=== PATIENT | male | born 1945 | race African-American/Black ===

== ENCOUNTER 2021-09-16 10:07 | Emergency (ER) | payer MEDICARE, MEDICAID, SELFPAY ==
--- NOTE | ~2021-09-16 | CT_ITS ---
EXAMINATION: CT CERVICAL SPINE WITHOUT CONTRAST CLINICAL INFORMATION: Status post fall with head strike. COMPARISON: None TECHNIQUE: Multiple axial images of the cervical spine were obtained without the administration of intravenous contrast. Coronal and sagittal reformatted images were obtained. This CT examination was performed using dose optimization techniques as appropriate, variously including the following: *Automated exposure control *Adjustment of mA and/or kV according to patient size (this includes techniques or standardized protocols for targeted exams where dose is matched to indication/reason for exam; i.e. extremities or head) *Use of iterative reconstruction technique DLP: 351.57 mGy-cm FINDINGS: There is straightening of the normal cervical lordosis with normal spinal alignment. 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 Nonacute fracture of the anterior-inferior margin of C1 is seen as well. Calcification of the adjacent posterior longitudinal ligament is seen as well. Mild to severe multilevel degenerative changes are seen from C4-C5 to C7-T1. Partial osseous fusion of C6-C7 is seen as well. Mild to moderate bilateral facet arthropathy is seen greatest at C2-C3 on the right. The spinous processes are intact. Moderate sized nuchal ligament ossification from the C4-C6 level without surrounding abnormality. The soft tissues are unremarkable. No lymphadenopathy. A left-sided thyroid nodule inferiorly in the left lobe measures 1.2 cm in transverse dimension (image 320, series 11) not requiring follow-up. Mild biapical pleural thickening and scarring. CT/CT cervical spine wo con IMPRESSION: 1. Straightening of the normal cervical lordosis may be secondary to positioning and cisternal muscle spasm. 2. Multilevel degenerative changes without definitive acute abnormality. 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 Correlate with patient history. Fleischner guidelines were followed.
--- NOTE | ~2021-09-16 | CT_ITS ---
EXAMINATION: CT HEAD WITHOUT CONTRAST CLINICAL INFORMATION: Status post fall with head strike. COMPARISON: None TECHNIQUE: Contiguous axial imaging was performed from the skull base to vertex without intravenous administration of contrast. Coronal and sagittal reformatted images were obtained. This CT examination was performed using dose optimization techniques as appropriate, variously including the following: *Automated exposure control *Adjustment of mA and/or kV according to patient size (this includes techniques or standardized protocols for targeted exams where dose is matched to indication/reason for exam; i.e. extremities or head) *Use of iterative reconstruction technique DLP: 711.61, 212.92, 10.25 mGy-cm FINDINGS: There is mild to moderate widening of the cortical sulci and associated ventriculomegaly. The lateral ventricles are mildly asymmetric, left greater than right. Dilatation is mildly out of portion compared to the degree of atrophy. Close triangle measures approximately 53 degrees. Mild periventricular microvascular changes. The third and fourth ventricles are in their normal midline position. The basilar and prepontine cisterns are unremarkable. There is no acute intra or extracerebral abnormality. There is no mass effect or midline shift. Sections through the bony calvarium are unremarkable. The orbits are intact. The paranasal sinuses are clear. The mastoid air cells are clear. CT/CT head/brain wo con IMPRESSION: 1. No acute intracranial pathology. 2. Ventricular dilatation is mildly out of proportion relative to the degree of cortical atrophy. This is nonspecific, but can be seen with normal pressure hydrocephalus.
--- NOTE | 2021-09-16 10:11 | ED_ITS ---
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 Two staff members saw him lose his balance and fall. He hit his head on the radiator. One staff member thinks his eyes rolled into the back of his head and the other staff member denies. No seizure activity. Patient initially refused to come to the ER for evaluation but was eventually convinced. He denies all complaints. He denies any medical history. complaint: fall Onset (ago): minute(s) Fall from: standing Fall witnessed: yes, by living facility staff Place fall occurred: [facility] Loss of consciousness: unsure Prolonged down time: no Symptoms prior to fall: none Location of injury: head Associated symptoms (after fall): denies Related Data Home Medications Medication Instructions Recorded Confirmed polyethylene glycol 3350 17 gram 17 g PO DAILY 09/16/21 09/16/21 oral powder packet risperidone 1 mg/mL oral solution 0.5 mg PO BID 09/16/21 09/16/21 risperidone microspheres 50 mg/2 50 mg IM Q14D 09/16/21 09/16/21 mL intramuscular susp,ext release (Risperdal Consta) valproic acid (as sodium salt) 250 1,000 mg PO DAILY@1700 09/16/21 09/16/21 mg/5 mL (5 mL) oral solution Allergies Allergy/AdvReac Type Severity Reaction Status Date / Time Unable to Assess Allergy Unverified 09/16/21 10:11 Review of Systems Review of Systems: Constitutional: No Fever, No Chills ENT/Mouth: No sore throat, No Rhinorrhea, No Swallowing Difficulty Eyes: No Eye Pain, No Swelling, No Redness Cardiovascular: No Chest Pain, No SOB, No Orthopnea, No Edema Respiratory: No Cough, No Sputum, No Wheezing, No dyspnea Gastrointestinal: No Nausea, No Vomiting, No Diarrhea, No abdominal Pain, No Hematochezia, No Melena Genitourinary: No Dysuria, No Urinary Frequency, No Hematuria Musculoskeletal: No joint pain, No Myalgias Skin: No Skin Lesions, No rash Neuro: No Weakness, No Numbness, No Dizziness, No Headache Psych: No Anxiety/Panic, No Depression Heme/Lymph: No Bruising, No Lymphadenopathy Endocrine: No Polyuria, No Polydipsia [facility] Past Medical History Medical History (Updated 09/16/21 @ 17:21 by TAYO Hurtado) Anemia Bipolar 1 disorder Dementia Dysphagia Psychosis Schizoaffective disorder Social History Social History Advance Directives: No Advance Directives Information Provided: No Physical Exam Vital Signs: Vital Signs: Last Vital Signs Temp 95.4 F L 09/16/21 11:33 Pulse 86 09/16/21 11:33 Resp 20 09/16/21 11:33 BP 140/63 H 09/16/21 11:33 Pulse Ox 95 09/16/21 11:33 O2 Del Method 09/16/21 11:33 BMI result Body Mass Index 25.9 Appearance: Alert elderly male laying on the stretcher. No acute distress. Eyes: Pupils equal, round and reactive to light. ENT: Pharynx normal. Neck: Normal inspection. Neck supple. No midline tenderness. CVS: Normal heart rate and rhythm. Pulses normal. Respiratory: No respiratory distress. Breath sounds normal. Abdomen: Soft and nontender. +BS x4 Skin: Skin warm and dry. Normal skin color. Normal skin turgor. No rashes. Extremities: Atraumatic x4, pelvis is stable and nontender. No lower extremity edema. Compartments of the lower and upper extremities are soft and compressible, no erythema or tenderness. Neuro: Oriented X 2. Follows simple commands, strength equal and symmetrical throughout. Poor historian. Course Course Course Narrative: 75-year-old male with history of Korsakoff dementia, schizoaffective disorder, dysphagia, gait instability who presents to the ER for evaluation of a fall with head strike. There was question of loss of consciousness briefly. On arrival to the ER he has no complaints. There is no evidence of trauma. Will get CT scan of his head and neck given head strike. Will get metabolic workup in EKG. Reevaluation(s) Reevaluation #1: Head and neck imaging is unremarkable for traumatic injury. His labs are unremarkable aside from a CPK of 1000. He has no evidence of compartment syndrome on examination, all compartments are soft and compressible. He has no muscle tenderness or complaints at this time. Will plan to hydrate with 2 L of IV fluids and repeat the CPK. Anticipate discharge back to the SNF. Case d/w Nimisha Santacruz. - Fall Medical Records Attestation: I reviewed the patient's medical records. Lab Data Attestation: I reviewed the patient's lab results. Result diagrams: 09/16/21 12:36 09/16/21 12:36 Labs: Lab Results 09/16/21 09/16/21 09/16/21 Range/Units 12:36 12:36 12:36 WBC 4.3 L (4.8-10.8) X10*3/uL RBC 4.53 L (4.60-5.80) X10*6/uL Hgb 13.3 L (14.0-18.0) g/dl Hct 41.0 L (42.0-52.0) % MCV 90.5 (80.0-98.0) fL MCH 29.4 (27.0-33.0) pg MCHC 32.4 (31.0-36.0) g/dl RDW 13.0 (11.0-16.0) % Plt Count 213 (160-400) X10*3/uL MPV 9.0 L (9.4-12.4) fL Immature Gran % (Auto) 0.5 H (0.0-0.4) % Neut % (Auto) 66.8 (45-73) % Lymph % (Auto) 22.7 (20-40) % [place] % (Auto) 9.1 (2-11) % Eos % (Auto) 0.7 (0-4) % Baso % (Auto) 0.2 (0-2) % Lymph # (Auto) 1.0 L (1.2-4.9) X10*3/uL [place] # (Auto) 0.4 (0.1-1.2) X10*3/uL Eos # (Auto) 0.0 (0.0-0.4) X10*3/uL Baso # (Auto) 0.0 (0.0-0.2) X10*3/uL Abs Immat Gran (auto) 0.02 (0.00-0.03) X10*3/uL Absolute Neuts (auto) 2.9 (2.0-8.3) x10*3/uL Absolute Nucleated RBC 0.000 (0.0-0.012) X10*3/uL Nucleated RBC % (auto) 0.0 (0.0-0.2) /100WBC Sodium 139 (135-145) mmol/L Potassium 4.7 (3.3-5.1) mmol/L Chloride 102 (96-108) mmol/L Carbon Dioxide 29 (22-29) mmol/L Anion Gap 13 (12-20) BUN 15 (9-16) mg/dL Creatinine 0.87 (0.5-1.4) mg/dL Estim Creat Clear Calc 75.6 Estimated GFR > 60 Random Glucose 108 (60-115) mg/dL Calcium 9.4 (8.4-10.2) mg/dL Magnesium 1.9 (1.6-2.6) mg/dL Total Bilirubin 0.5 (0.0-1.0) mg/dL Direct Bilirubin 0.2 (0.0-0.5) mg/dL AST 19 (5-37) U/L ALT 16 (0-40) U/L Alkaline Phosphatase 86 (39-117) U/L Total Creatine Kinase 1004 H (38-174) U/L Troponin I High Sens < 3.5 (<3.5-35.0) ng/L Total Protein 7.7 (6.5-8.0) g/dL Albumin 4.2 (3.5-5.0) g/dL ECG Data Attestation: I personally reviewed and interpreted this ECG as follows: ECG interpretation date: 09/16/21 ECG interpretation time: 12:05 Interpretation: Normal sinus rhythm, heart rate 73 beats per minute, normal FL interval, no ST segment elevations or depressions, artifact present. Discharge Plan Discharge Clinical Impression: Fall, Rhabdomyolysis Patient Disposition: er [facility] Instructions: Rhabdomyolysis (ED), Fall Prevention for Older Adults (ED) Additional Instructions: Your lab workup today showed elevation of a muscle enzyme, your given IV fluids to help clear this. Recommend continuing to increase her oral hydration for the next few days. Recommend repeat of your CPK level in the next 3-5 days. Follow-up with your doctor. If you develop any muscle pain, cramping, or any other concerning signs or symptoms prior doctor come back to the ER for further evaluation. Prescriptions: No Action polyethylene glycol 3350 17 gram Powder In Packet 17 g PO DAILY risperidone 1 mg/mL Solution 0.5 mg PO BID Risperdal Consta 50 mg/2 mL Suspension,Extended Rel Recon 50 mg IM Q14D valproic acid (as sodium salt) 250 mg/5 mL (5 mL) Solution 1,000 mg PO DAILY@1700
--- NOTE | 2021-09-16 10:19 | ECG_ITS ---
Test Reason : weakness Blood Pressure : / mmHG Vent. Rate : 073 BPM Atrial Rate : 073 BPM P-R Int : 124 ms QRS Dur : 076 ms QT Int : 366 ms P-R-T Axes : 072 043 006 degrees QTc Int : 403 ms Normal sinus rhythm Normal ECG No previous ECGs available Referred By: Shoshana Wells Electronically Signed By:ZARA CURRAN
[2021-09-16 10:25] VITALS: BP 159/81; PULSE 68; O2SAT 97
[2021-09-16 11:33] VITALS: BP 140/63; PULSE 86; RESP 20; TEMP 35.2; O2SAT 95; BMI 25.9
--- NOTE | 2021-09-16 11:40 | PC.NURSE ---
attempting to give pt his riperdone but pt is refusing
[2021-09-16 12:41] LABS: Basophils Percent Auto 0.2 % (0-2); Eosinophils Percent Auto 0.7 % (0-4); Hemoglobin 13.3 g/dl (14.0-18.0); Imm Gran Abs Auto 0.02 X10*3/uL (0.00-0.03); Imm Gran Pct Auto 0.5 % (0.0-0.4); Lymphocytes Percent Auto 22.7 % (20-40); MANUAL DIFF FLAG NO; Mean Corpuscular HGB Conc 32.4 g/dl (31.0-36.0); Mean Corpuscular Hemoglobin 29.4 pg (27.0-33.0); Mean Corpuscular Volume 90.5 fL (80.0-98.0); Monocytes Absolute Auto 0.4 X10*3/uL (0.1-1.2); Monocytes Percent Auto 9.1 % (2-11); Neutrophils Absolute Auto 2.9 x10*3/uL (2.0-8.3); Neutrophils Percent Auto 66.8 % (45-73); Platelet Count 213 X10*3/uL (160-400); Red Blood Count 4.53 X10*6/uL (4.60-5.80); White Blood Count 4.3 X10*3/uL (4.8-10.8)
[2021-09-16 13:02] LABS: Troponin-I High Sensitivity < 3.5 ng/L (<3.5-35.0)
[2021-09-16 13:10] LABS: Alanine Aminotransferase 16 U/L (0-40); Albumin Level 4.2 g/dL (3.5-5.0); Alkaline Phosphatase 86 U/L (39-117); Anion Gap 13 (12-20); Aspartate Amino Transferase 19 U/L (5-37); Bilirubin Direct 0.2 mg/dL (0.0-0.5); Bilirubin Total 0.5 mg/dL (0.0-1.0); Blood Urea Nitrogen 15 mg/dL (9-16); Calcium 9.4 mg/dL (8.4-10.2); Carbon Dioxide 29 mmol/L (22-29); Chloride 102 mmol/L (96-108); Creatinine Clr Calc Pharmacy 75.6; Estimated Glomerular Filt Rate > 60; Glucose Random 108 mg/dL (60-115); Magnesium 1.9 mg/dL (1.6-2.6); Potassium 4.7 mmol/L (3.3-5.1); Sodium 139 mmol/L (135-145); Total Protein 7.7 g/dL (6.5-8.0)
[2021-09-16] MEDS: 0.9 % Sodium Chloride 1,000 ML 999 ML IVCONT ×2 (13:33→16:31)
[2021-09-16 16:30] VITALS: BP 139/74; PULSE 84; RESP 18; TEMP 37; O2SAT 95
[2021-09-16 18:17] VITALS: BP 137/78; PULSE 75; RESP 18; TEMP 37.4; O2SAT 96
--- NOTE | 2021-09-16 19:00 | PC.NURSE ---
Took report from Sherlyn to assume care of Pt, Pt resting in bed in beatty, this RN continues to monitor.
[2021-09-16 21:00] VITALS: BP 131/72; PULSE 79; RESP 14; O2SAT 97
== END 2021-09-16 21:30 | disposition skilled nursing facility (03) ==
PROVIDERS: Physician Assistant; Emergency Provider Emergency Medicine; PCP Internal Medicine
DX: T79.6XXA Traumatic ischemia of muscle, initial encounter (principal); W01.198A Fall on same level from slipping, tripping and stumbling with subsequent striking against other object, initial encounter; Y93.89 Activity, other specified; Y92.128 Other place in nursing home as the place of occurrence of the external cause; Y99.9 Unspecified external cause status
CPT/HCPCS: 36415; 70450; 72125; 80048; 80076; 82550; 83735; 84484; 85025; 93005; 96360; 99284

== ENCOUNTER 2021-09-22 16:47 | Emergency (ER) | payer MEDICARE, MEDICAID, SELFPAY ==
--- NOTE | ~2021-09-22 | XR_ITS ---
EXAMINATION: XR CHEST CLINICAL INFORMATION: Fever COMPARISON: None TECHNIQUE: Frontal view of the chest was obtained. FINDINGS: Lungs are hypoinflated. Multifocal infiltrates are noted throughout both lungs. No pleural effusions are seen. There may be some old rib fractures seen in the left hemithorax. XR/XR chest 1V IMPRESSION: Multifocal infiltrates consistent with pneumonia, possibly viral.
--- NOTE | ~2021-09-22 | CT_ITS ---
EXAMINATION: CT CHEST WITHOUT CONTRAST CLINICAL INFORMATION: Bilateral pneumonia COMPARISON: Chest x-ray performed earlier the same date TECHNIQUE: Multidetector volumetric CT imaging of the chest was done. Axial MIP volume rendering provided. Sagittal and coronal reformatted images were obtained. This CT examination was performed using dose optimization techniques as appropriate, variously including the following: *Automated exposure control *Adjustment of mA and/or kV according to patient size (this includes techniques or standardized protocols for targeted exams where dose is matched to indication/reason for exam; i.e. extremities or head) *Use of iterative reconstruction technique DLP: 512 mGy-cm FINDINGS: LUNGS/PLEURA: Expiratory phase image acquisition with near collapse of the trachea and AP dimension. Secretions evident within the trachea. No focal consolidation. Bibasilar subsegmental atelectasis. Mild diffuse bronchial wall thickening, with scattered endobronchial secretions. Scattered areas of varicoid bronchiectatic change. No pleural effusion or pneumothorax. MEDIASTINUM/PATRICIA: Mild/moderate cardiomegaly. No pericardial effusion. Great vessels normal caliber. No mediastinal or hilar lymphadenopathy. CHEST WALL/AXILLA: No lymphadenopathy. UPPER ABDOMEN: Diffuse hepatic steatosis. Small sliding-type hiatal hernia. Incompletely imaged simple fluid attenuating left renal cysts are benign and require no further follow-up. There are least 2 nonobstructive calculi in the lower pole left kidney. OSSEOUS STRUCTURES: Unremarkable. CT/CT chest wo con IMPRESSION: * No focal consolidation or evidence of pneumonitis. * Findings suggestive of tracheobronchomalacia. * Minimal diffuse bronchial wall thickening, with scattered endobronchial secretions. Theoretically it is possible that this could be the etiology of the patient's fever. * Mild-moderate cardiomegaly, without evidence of decompensated heart failure. * Hepatic steatosis.
[2021-09-22 17:05] VITALS: BP 167/82; BP 172/84; PULSE 98; PULSE 99; RESP 20; TEMP 38; O2SAT 96; O2SAT 97; BMI 27.5
--- NOTE | 2021-09-22 17:07 | ED.WEAKNESS ---
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 Patient was seen here on 09/16 after the fall had CPK elevated patient just asking to check him out denies any complain otherwise no cough no fever no chills on arrival patient temperature was 100.4 degrees Related Data Home Medications Medication Instructions Recorded Confirmed polyethylene glycol 3350 17 gram 17 g PO DAILY 09/16/21 09/16/21 oral powder packet risperidone 1 mg/mL oral solution 0.5 mg PO BID 09/16/21 09/16/21 risperidone microspheres 50 mg/2 50 mg IM Q14D 09/16/21 09/16/21 mL intramuscular susp,ext release (Risperdal Consta) valproic acid (as sodium salt) 250 1,000 mg PO DAILY@1700 09/16/21 09/16/21 mg/5 mL (5 mL) oral solution Previous Rx's Medication Instructions Recorded amoxicillin 875 mg-potassium 1 tab PO BID #20 tabs 09/22/21 clavulanate 125 mg tablet doxycycline hyclate 100 mg tablet 100 mg PO BID #20 tabs 09/22/21 Allergies Allergy/AdvReac Type Severity Reaction Status Date / Time haloperidol [From Haldol] Allergy Unknown Verified 09/22/21 17:10 Review of Systems Review of Systems: Yes Unobtainable due to mental status PMFSH Past Medical History Medical History Anemia Bipolar 1 disorder Dementia Dysphagia Psychosis Schizoaffective disorder Social History Social History Advance Directives: No Advance Directives Information Provided: No Physical Exam Vital Signs: Vital Signs: Last Vital Signs Temp 98.6 F 09/22/21 22:22 Pulse 78 09/22/21 22:22 Resp 17 09/22/21 22:22 BP 156/78 H 09/22/21 22:22 Pulse Ox 97 09/22/21 22:22 O2 Del Method 09/22/21 22:22 BMI result Body Mass Index 27.5 Appearance: Alert. Oriented X3 No acute distress. Eyes: PERRLA, No Nystagmus ENT: Pharynx normal. Oral Mucosa moist Neck: Normal inspection. Neck supple. CVS: Normal heart rate and rhythm. Pulses normal. Respiratory: No respiratory distress. Equal air entry bilateral, no wheezing/rales/rhonchi Abdomen: Soft and nontender. Bowel sounds are present, no mass palpable, no CVA tenderness Skin: Skin warm and dry. Normal skin color. Normal skin turgor. Extremities: No lower extremity edema. No calf tenderness Neuro: Oriented X 3. Left upper extremity residual weakness No sensory deficit.No cerebellar signs , cranial nerves II-XII intact MDM - Weakness MDM Narrative Medical decision making narrative: Patient with nonspecific complaints comes here for to be checked out noticed to have low-grade fever workup showed secretions in the trachea and bronchi likely from aspiration will advise prison to give him mechanical diet patient carb 65 pneumonia severity score is only 1 can be managed as outpatient patient was given IV Rocephin in the ER Medical Records Attestation: I reviewed the patient's medical records. Lab Data Attestation: I reviewed the patient's lab results. Result diagrams: 09/22/21 17:25 09/22/21 17:56 Labs: Lab Results 09/22/21 09/22/21 09/22/21 Range/Units 17:25 17:25 17:27 WBC 6.0 (4.8-10.8) X10*3/uL RBC 4.45 L (4.60-5.80) X10*6/uL Hgb 13.0 L (14.0-18.0) g/dl Hct 40.0 L (42.0-52.0) % MCV 89.9 (80.0-98.0) fL MCH 29.2 (27.0-33.0) pg MCHC 32.5 (31.0-36.0) g/dl RDW 12.8 (11.0-16.0) % Plt Count 216 (160-400) X10*3/uL MPV 9.1 L (9.4-12.4) fL Immature Gran % (Auto) 0.3 (0.0-0.4) % Neut % (Auto) 68.5 (45-73) % Lymph % (Auto) 20.2 (20-40) % [place] % (Auto) 9.8 (2-11) % Eos % (Auto) 1.0 (0-4) % Baso % (Auto) 0.2 (0-2) % Lymph # (Auto) 1.2 (1.2-4.9) X10*3/uL [place] # (Auto) 0.6 (0.1-1.2) X10*3/uL Eos # (Auto) 0.1 (0.0-0.4) X10*3/uL Baso # (Auto) 0.0 (0.0-0.2) X10*3/uL Abs Immat Gran (auto) 0.02 (0.00-0.03) X10*3/uL Absolute Neuts (auto) 4.1 (2.0-8.3) x10*3/uL Absolute Nucleated RBC 0.000 (0.0-0.012) X10*3/uL Nucleated RBC % (auto) 0.0 (0.0-0.2) /100WBC Sodium (135-145) mmol/L Potassium (3.3-5.1) mmol/L Chloride (96-108) mmol/L Carbon Dioxide (22-29) mmol/L Anion Gap (12-20) BUN (9-16) mg/dL Creatinine (0.5-1.4) mg/dL Estim Creat Clear Calc Estimated GFR Random Glucose (60-115) mg/dL Lactic Acid 1.1 (0.5-2.0) mmol/L Calcium (8.4-10.2) mg/dL Magnesium (1.6-2.6) mg/dL Total Bilirubin (0.0-1.0) mg/dL AST (5-37) U/L ALT (0-40) U/L Alkaline Phosphatase (39-117) U/L Total Creatine Kinase (38-174) U/L Total Protein (6.5-8.0) g/dL Albumin (3.5-5.0) g/dL Urine Color Urine Appearance Urine pH (5.0-8.0) Ur Specific [place] (1.005-1.025) Urine Protein (NEG-TRACE) MG/DL Urine Glucose (UA) (NEG) MG/DL Urine Ketones (NEG) MG/DL Urine Blood (NEG) Urine Nitrite (NEG) Ur Leukocyte Esterase (NEG) COVID-19 (JEFF) Negative (Negative) COVID-19 Clin Com See Note Influenza Type A (PCR) (Negative) Influenza Type B (PCR) (Negative) RSV RNA Qual (PCR) (Negative) SARS-CoV-2 RNA (RT-PCR) (Negative) 09/22/21 09/22/21 09/22/21 Range/Units 17:34 17:56 20:07 WBC (4.8-10.8) X10*3/uL RBC (4.60-5.80) X10*6/uL Hgb (14.0-18.0) g/dl Hct (42.0-52.0) % MCV (80.0-98.0) fL MCH (27.0-33.0) pg MCHC (31.0-36.0) g/dl RDW (11.0-16.0) % Plt Count (160-400) X10*3/uL MPV (9.4-12.4) fL Immature Gran % (Auto) (0.0-0.4) % Neut % (Auto) (45-73) % Lymph % (Auto) (20-40) % [place] % (Auto) (2-11) % Eos % (Auto) (0-4) % Baso % (Auto) (0-2) % Lymph # (Auto) (1.2-4.9) X10*3/uL [place] # (Auto) (0.1-1.2) X10*3/uL Eos # (Auto) (0.0-0.4) X10*3/uL Baso # (Auto) (0.0-0.2) X10*3/uL Abs Immat Gran (auto) (0.00-0.03) X10*3/uL Absolute Neuts (auto) (2.0-8.3) x10*3/uL Absolute Nucleated RBC (0.0-0.012) X10*3/uL Nucleated RBC % (auto) (0.0-0.2) /100WBC Sodium 142 (135-145) mmol/L Potassium 4.1 (3.3-5.1) mmol/L Chloride 106 (96-108) mmol/L Carbon Dioxide 28 (22-29) mmol/L Anion Gap 12 (12-20) BUN 17 H (9-16) mg/dL Creatinine 0.85 (0.5-1.4) mg/dL Estim Creat Clear Calc 80.8 Estimated GFR > 60 Random Glucose 106 (60-115) mg/dL Lactic Acid (0.5-2.0) mmol/L Calcium 9.0 (8.4-10.2) mg/dL Magnesium 1.8 (1.6-2.6) mg/dL Total Bilirubin 0.5 (0.0-1.0) mg/dL AST 14 (5-37) U/L ALT 10 (0-40) U/L Alkaline Phosphatase 75 (39-117) U/L Total Creatine Kinase 561 H D (38-174) U/L Total Protein 7.2 (6.5-8.0) g/dL Albumin 3.8 (3.5-5.0) g/dL Urine Color DK YELLOW Urine Appearance CLEAR Urine pH 6.0 (5.0-8.0) Ur Specific [place] 1.025 (1.005-1.025) Urine Protein TRACE (NEG-TRACE) MG/DL Urine Glucose (UA) NEG (NEG) MG/DL Urine Ketones 15 (NEG) MG/DL Urine Blood NEG (NEG) Urine Nitrite NEG (NEG) Ur Leukocyte Esterase NEG (NEG) COVID-19 (JEFF) (Negative) COVID-19 Clin Com Influenza Type A (PCR) NEGATIVE (Negative) Influenza Type B (PCR) NEGATIVE (Negative) RSV RNA Qual (PCR) NEGATIVE (Negative) SARS-CoV-2 RNA (RT-PCR) NEGATIVE (Negative) Imaging Data CT scan - chest: Attestation: I personally reviewed and interpreted this imaging study as follows: Radiologist's impression: ?No focal consolidation or evidence of pneumonitis. *? Findings suggestive of tracheobronchomalacia. *? Minimal diffuse bronchial wall thickening, with scattered endobronchial secretions. Theoretically it is possible that this could be the etiology of the patient's fever. *? Mild-moderate cardiomegaly, without evidence of decompensated heart failure. *? Hepatic steatosis. Discharge Plan Discharge Clinical Impression: Chronic tracheobronchitis Patient Disposition: er SNF Instructions: Aspiration Pneumonia (DC) Additional Instructions: Mechanical diet as advised Antibiotic as prescribed Follow with PCP if not better Prescriptions: New doxycycline hyclate 100 mg tablet 100 mg PO BID Qty: 20 0RF amoxicillin-pot clavulanate 875-125 mg tablet 1 tab PO BID Qty: 20 0RF No Action polyethylene glycol 3350 17 gram Powder In Packet 17 g PO DAILY risperidone 1 mg/mL Solution 0.5 mg PO BID Risperdal Consta 50 mg/2 mL Suspension,Extended Rel Recon 50 mg IM Q14D valproic acid (as sodium salt) 250 mg/5 mL (5 mL) Solution 1,000 mg PO DAILY@1700
[2021-09-22 17:30] LABS: MANUAL DIFF FLAG NO
[2021-09-22 17:34] LABS: Basophils Percent Auto 0.2 % (0-2); Eosinophils Absolute Auto 0.1 X10*3/uL (0.0-0.4); Imm Gran Abs Auto 0.02 X10*3/uL (0.00-0.03); Imm Gran Pct Auto 0.3 % (0.0-0.4); Lymphocytes Absolute Auto 1.2 X10*3/uL (1.2-4.9); Lymphocytes Percent Auto 20.2 % (20-40); Mean Corpuscular HGB Conc 32.5 g/dl (31.0-36.0); Mean Corpuscular Hemoglobin 29.2 pg (27.0-33.0); Mean Corpuscular Volume 89.9 fL (80.0-98.0); Mean Platelet Volume 9.1 fL (9.4-12.4); Monocytes Absolute Auto 0.6 X10*3/uL (0.1-1.2); Monocytes Percent Auto 9.8 % (2-11); Neutrophils Absolute Auto 4.1 x10*3/uL (2.0-8.3); Neutrophils Percent Auto 68.5 % (45-73); Platelet Count 216 X10*3/uL (160-400); Red Blood Count 4.45 X10*6/uL (4.60-5.80); Red Cell Distribution Width 12.8 % (11.0-16.0)
[2021-09-22] MEDS: 0.9 % Sodium Chloride 1,000 ML 999 ML IV (17:34)
[2021-09-22 17:39] LABS: Appearance Urine CLEAR; Color Urine DK YELLOW; Glucose Urine UA NEG (NEG); Leukocyte Esterase Urine NEG (NEG); Nitrite Urine NEG (NEG); Specific Gravity - Urine 1.025 (1.005-1.025); Urine Blood NEG (NEG); Urine Ketones 15 MG/DL (NEG); Urine Protein TRACE MG/DL (NEG-TRACE)
[2021-09-22 17:48] LABS: Lactic Acid 1.1 mmol/L (0.5-2.0)
[2021-09-22 17:52] LABS: COVID-19 Test Negative (Negative)
[2021-09-22 18:27] LABS: Alanine Aminotransferase 10 U/L (0-40); Albumin Level 3.8 g/dL (3.5-5.0); Alkaline Phosphatase 75 U/L (39-117); Anion Gap 12 (12-20); Aspartate Amino Transferase 14 U/L (5-37); Bilirubin Total 0.5 mg/dL (0.0-1.0); Blood Urea Nitrogen 17 mg/dL (9-16); Carbon Dioxide 28 mmol/L (22-29); Chloride 106 mmol/L (96-108); Creatinine Clr Calc Pharmacy 80.8; Estimated Glomerular Filt Rate > 60; Glucose Random 106 mg/dL (60-115); Magnesium 1.8 mg/dL (1.6-2.6); Potassium 4.1 mmol/L (3.3-5.1); Sodium 142 mmol/L (135-145); Total Protein 7.2 g/dL (6.5-8.0)
[2021-09-22 20:05] VITALS: BP 146/83; PULSE 87; RESP 16; TEMP 37.7; O2SAT 95
[2021-09-22] MEDS: Acetaminophen 325 MG TABLET 650 MG PO (20:08)
[2021-09-22 20:55] LABS: Influenza A PCR NEGATIVE (Negative); Influenza B PCR NEGATIVE (Negative); Resp Syncy Virus RNA Qual PCR NEGATIVE (Negative); SARS COV2 PCR INHOUSE NEGATIVE (Negative)
[2021-09-22] MEDS: cefTRIAXone sodium 1 GM in 0.9 % Sodium Chloride 50 ML IV (21:09)
[2021-09-22 22:22] VITALS: BP 156/78; PULSE 78; RESP 17; TEMP 37; O2SAT 97
[2021-09-22 23:45] VITALS: BP 151/76; PULSE 77; RESP 15; O2SAT 97
--- NOTE | 2021-09-23 00:20 | PC.NURSE ---
report called to [facility].
--- NOTE | 2021-09-23 01:16 | PC.NURSE ---
pt waiting for ambulance
== END 2021-09-23 03:31 | disposition skilled nursing facility (03) ==
PROVIDERS: Emergency Provider Internal Medicine; PCP Internal Medicine
DX: J42 Unspecified chronic bronchitis (principal); F04 Amnestic disorder due to known physiological condition; Z20.822 Contact with and (suspected) exposure to COVID-19
CPT/HCPCS: 0241U; 36415; 71045; 71250; 80053; 81003; 82550; 83605; 83735; 85025; 87040; 87147; 87205; 87635; 96361; 96365; 99284; 99285; J0696

== ENCOUNTER 2021-09-25 15:19 | Inpatient (IN) | payer MEDICARE, MEDICAID, SELFPAY ==
[2021-09-25] VITALS (9 sets, daily range): BP systolic 134–154; BP diastolic 56–90; PULSE 76–96; RESP 13–25; TEMP 37.1–38.1; O2SAT 90–100; BMI 31.4
--- NOTE | ~2021-09-25 | XR_ITS ---
EXAMINATION: XR chest 1V CLINICAL INFORMATION: Reason for Exam shortness of breath COMPARISON: CT chest 09/22/2021. Chest radiograph 09/22/2021. TECHNIQUE: Portable AP chest radiograph. FINDINGS: Multiple external artifacts overlie the thorax. Normal appearance of the cardiomediastinal structures. Pleura no focal pulmonary consolidation. Normal pattern of pulmonary vasculature. Multiple right rib chronic posttraumatic deformities. XR/XR chest 1V IMPRESSION: *No acute cardiopulmonary abnormalities. No focal pulmonary consolidation. No evidence of active pulmonary edema.
--- NOTE | ~2021-09-25 | CT_ITS ---
EXAMINATION: CT HEAD WITHOUT CONTRAST CLINICAL INFORMATION: Lethargy COMPARISON: 09/16/2021 TECHNIQUE: Contiguous axial imaging was performed from the skull base to vertex without intravenous administration of contrast. This CT examination was performed using dose optimization techniques as appropriate, variously including the following: *Automated exposure control *Adjustment of mA and/or kV according to patient size (this includes techniques or standardized protocols for targeted exams where dose is matched to indication/reason for exam; i.e. extremities or head) *Use of iterative reconstruction technique DLP: 755 mGy-cm FINDINGS: No acute findings compared to prior head CT from 09/16/2021. No intracranial hemorrhage, extra-axial fluid collection, focal mass effect or midline shift. Chronic volume loss of brain parenchyma with commensurate prominence of ventricles and sulci. Atherosclerotic calcifications of cavernous carotid arteries. Mild scattered hypoattenuation in white matter is compatible with sequela of chronic microangiopathy. The watkins-white matter differentiation is maintained. No evidence of an acute major vascular territory infarction. No acute findings within the posterior fossa. The cerebellar tonsils are in normal position. The calvarium is intact. The visualized paranasal sinuses, mastoid air cells and middle ear cavities are well aerated. Orbits and temporomandibular joints are unremarkable. CT/CT head/brain wo con IMPRESSION: * No intracranial hemorrhage or other acute intracranial pathology compared to 09/16/2021. * Chronic volume loss of brain parenchyma with commensurate prominence of ventricles and sulci. No hydrocephalus.
--- NOTE | ~2021-09-25 | CT_ITS ---
EXAMINATION: CT ABDOMEN AND PELVIS WITHOUT CONTRAST CLINICAL INFORMATION: Abdominal pain COMPARISON: None TECHNIQUE: Multidetector volumetric imaging was performed from the superior aspect of the liver through the pubic symphysis. Sagittal and coronal reformatted images were obtained on the technologist's workstation. This CT examination was performed using dose optimization techniques as appropriate, variously including the following: *Automated exposure control *Adjustment of mA and/or kV according to patient size (this includes techniques or standardized protocols for targeted exams where dose is matched to indication/reason for exam; i.e. extremities or head) *Use of iterative reconstruction technique Motion degradation limits assessment. DLP: 972 mGy-cm FINDINGS: LUNG BASES: Minor bibasilar airspace disease consistent atelectasis or pneumonia. LIVER, GALLBLADDER, AND BILIARY TREE: The liver is normal in size, shape, and attenuation. No focal hepatic lesion or biliary ductal dilatation is present. The gallbladder is unremarkable with no evidence of radiopaque gallstones, gallbladder wall thickening, or obvious pericholecystic inflammatory changes. PANCREAS: Unremarkable. SPLEEN: Unremarkable. ADRENAL GLANDS: Mild adenomatous changes within the generalized thickening of the left. KIDNEYS AND URETERS: Mild perinephric stranding. No hydronephrosis or stones. There is an exophytic cystic lesion anteriorly left kidney lower pole measuring up to 2.8 cm.. It measures 0 Hounsfield units. BLADDER: Alves catheter decompresses the bladder. GASTROINTESTINAL TRACT: The small and large bowel are unremarkable. The appendix is unremarkable. ABDOMINAL WALL: Small umbilical hernia containing colon. No obstruction. LYMPH NODES: Normal. VASCULAR: Unremarkable. PELVIC VISCERA: Unremarkable. OSSEOUS STRUCTURES: Unremarkable. CT/CT abdomen pelvis wo con IMPRESSION: Small umbilical hernia containing colon. No obstruction. Other chronic findings as above. Bibasilar airspace disease. Limited imaging due to motion degradation. Fleischner guidelines were followed.
--- NOTE | 2021-09-25 15:28 | ED_ITS ---
HPI - SOB/Dyspnea General Chief Complaint: Fever Stated Complaint: fever Time Seen by Provider: 09/25/21 15:25 Source: patient and EMS Mode of arrival: EMS History of Present Illness HPI Narrative: 75-year-old male presents via EMS with fever, [facility]argy from jail and a recent diagnosis of pneumonia as per EMS and sepsis alert was activated. On arrival, patient denies any shortness of breath or chest pain and also denies any abdominal discomfort. He is noted to be on supplemental oxygen and EMS reports that he was high 88% on their arrival. Nursing has reviewed the documentation from the jail that states that patient has been refusing oral medications raising suspicion that patient has not been taking any of the antibiotics that he was discharged with on 09/23. Related Data Home Medications Medication Instructions Recorded Confirmed polyethylene glycol 3350 17 gram 17 g PO DAILY 09/16/21 09/16/21 oral powder packet risperidone 1 mg/mL oral solution 0.5 mg PO BID 09/16/21 09/16/21 risperidone microspheres 50 mg/2 50 mg IM Q14D 09/16/21 09/16/21 mL intramuscular susp,ext release (Risperdal Consta) valproic acid (as sodium salt) 250 1,000 mg PO DAILY@1700 09/16/21 09/16/21 mg/5 mL (5 mL) oral solution Previous Rx's Medication Instructions Recorded amoxicillin 875 mg-potassium 1 tab PO BID #20 tabs 09/22/21 clavulanate 125 mg tablet doxycycline hyclate 100 mg tablet 100 mg PO BID #20 tabs 09/22/21 Allergies Allergy/AdvReac Type Severity Reaction Status Date / Time haloperidol [From Haldol] Allergy Unknown Verified 09/22/21 17:10 Review of Systems Review of Systems: pertinent positives and negatives as per the HPI remaining ROS difficult to obtain from the patient PMFSH Past Medical History Source: nursing notes reviewed Medical History Anemia Bipolar 1 disorder Dementia Dysphagia Psychosis Schizoaffective disorder Social History Social History Advance Directives: No Advance Directives Information Provided: No Physical Exam Vital Signs: Vital Signs: Last Vital Signs Temp 99.7 F 09/25/21 17:34 Pulse 76 09/25/21 17:34 Resp 16 09/25/21 17:34 BP 138/78 09/25/21 17:34 Pulse Ox 100 09/25/21 17:34 O2 Del Method 09/25/21 17:34 O2 Flow Rate 2 09/25/21 17:34 BMI result Body Mass Index 31.4 VITAL SIGNS: Reviewed. GENERAL: chronically ill, well-nourished, in no acute distress. HEAD: Normocephalic/atraumatic EYES: PERRLA, EOMI EARS: Ext canals without abnormality OROPHARYNX: no oral lesions noted, posterior pharynx clear, but dry mucosa NECK: Supple, no adenopathy LUNGS: Decreased breath sounds bilaterally with coarse rhonchi, no wheeze.No adventitious sounds or accessory muscle use. SpO2<93/94> on 2 L nasal cannula CARDIOVASCULAR: Regular rate and rhythm without noted murmurs, no JVD or lower extremity edema. ABDOMEN: Soft, non-tender, non-distended with bowel sounds. MUSCULOSKELETAL: No tenderness, deformities, or effusions noted on gross inspection. EXTREMITIES: No cyanosis, clubbing or edema. SKIN: Inspection of the skin reveals no rashes NEUROLOGIC: Alert and oriented x 2. Strength and sensation to light touch were grossly intact x 4. Course Course Course Narrative: 1525: sepsis alert called 75-year-old male who is a difficult historian but on review of prior visits here patient was seen on 09/23 discharged on 2 antibiotics and diagnosed with tracheal bronchitis. He is noted to be febrile as well as mild tachycardia on arrival and hypoxic. On review of all investigations although there is no leuk ocytosis and no obvious pneumonia on one-view chest x-ray given patient's febrile state and review of CT of the chest which was conducted on 09/22 raising concerns for possible mucus plugging. Discussed with inpatient hospitalist who accepts admission. MDM - SOB/Dyspnea Lab Data Result diagrams: 09/25/21 15:44 09/25/21 15:44 Labs: Lab Results 09/25/21 09/25/21 09/25/21 Range/Units 15:44 15:44 15:44 WBC 7.1 (4.8-10.8) X10*3/uL RBC 4.57 L (4.60-5.80) X10*6/uL Hgb 13.4 L (14.0-18.0) g/dl Hct 40.6 L (42.0-52.0) % MCV 88.8 (80.0-98.0) fL MCH 29.3 (27.0-33.0) pg MCHC 33.0 (31.0-36.0) g/dl RDW 12.7 (11.0-16.0) % Plt Count 249 (160-400) X10*3/uL MPV 9.1 L (9.4-12.4) fL Immature Gran % (Auto) 0.4 (0.0-0.4) % Neut % (Auto) 80.5 H (45-73) % Lymph % (Auto) 10.0 L (20-40) % [place] % (Auto) 8.7 (2-11) % Eos % (Auto) 0.3 (0-4) % Baso % (Auto) 0.1 (0-2) % Lymph # (Auto) 0.7 L (1.2-4.9) X10*3/uL [place] # (Auto) 0.6 (0.1-1.2) X10*3/uL Eos # (Auto) 0.0 (0.0-0.4) X10*3/uL Baso # (Auto) 0.0 (0.0-0.2) X10*3/uL Abs Immat Gran (auto) 0.03 (0.00-0.03) X10*3/uL Absolute Neuts (auto) 5.7 (2.0-8.3) x10*3/uL Absolute Nucleated RBC 0.000 (0.0-0.012) X10*3/uL Nucleated RBC % (auto) 0.0 (0.0-0.2) /100WBC PT 15.0 H (9.9-13.0) SEC INR 1.3 H (0.9-1.1) VBG pH (7.32-7.43) VBG pCO2 mmHg VBG pO2 mmHg VBG HCO3 (22-26) mmol/L VBG O2 Saturation % VBG Base Excess mmol/L Sodium 142 (135-145) mmol/L Potassium 4.3 (3.3-5.1) mmol/L Chloride 104 (96-108) mmol/L Carbon Dioxide 24 (22-29) mmol/L Anion Gap 18 (12-20) BUN 20 H (9-16) mg/dL Creatinine 0.91 (0.5-1.4) mg/dL Estim Creat Clear Calc 77.7 Estimated GFR > 60 Random Glucose 133 H (60-115) mg/dL Lactic Acid (0.5-2.0) mmol/L Calcium 9.4 (8.4-10.2) mg/dL Total Bilirubin 0.5 (0.0-1.0) mg/dL AST 22 D (5-37) U/L ALT 17 (0-40) U/L Alkaline Phosphatase 79 (39-117) U/L Troponin I High Sens (<3.5-35.0) ng/L C-Reactive Protein 10.24 H (< or = 0.50) mg/dL B-Natriuretic Peptide (<100) pg/mL Total Protein 8.3 H (6.5-8.0) g/dL Albumin 4.2 (3.5-5.0) g/dL Urine Color Urine Appearance Urine pH (5.0-8.0) Ur Specific [place] (1.005-1.025) Urine Protein (NEG-TRACE) MG/DL Urine Glucose (UA) (NEG) MG/DL Urine Ketones (NEG) MG/DL Urine Blood (NEG) Urine Nitrite (NEG) Ur Leukocyte Esterase (NEG) Urine RBC (0) /HPF Urine WBC (0-4) /HPF Ur Squamous Epith Cells /LPF Amorphous Sediment /LPF Urine Bacteria /LPF Urine Mucus /LPF 09/25/21 09/25/21 09/25/21 Range/Units 15:44 15:44 15:48 WBC (4.8-10.8) X10*3/uL RBC (4.60-5.80) X10*6/uL Hgb (14.0-18.0) g/dl Hct (42.0-52.0) % MCV (80.0-98.0) fL MCH (27.0-33.0) pg MCHC (31.0-36.0) g/dl RDW (11.0-16.0) % Plt Count (160-400) X10*3/uL MPV (9.4-12.4) fL Immature Gran % (Auto) (0.0-0.4) % Neut % (Auto) (45-73) % Lymph % (Auto) (20-40) % [place] % (Auto) (2-11) % Eos % (Auto) (0-4) % Baso % (Auto) (0-2) % Lymph # (Auto) (1.2-4.9) X10*3/uL [place] # (Auto) (0.1-1.2) X10*3/uL Eos # (Auto) (0.0-0.4) X10*3/uL Baso # (Auto) (0.0-0.2) X10*3/uL Abs Immat Gran (auto) (0.00-0.03) X10*3/uL Absolute Neuts (auto) (2.0-8.3) x10*3/uL Absolute Nucleated RBC (0.0-0.012) X10*3/uL Nucleated RBC % (auto) (0.0-0.2) /100WBC PT (9.9-13.0) SEC INR (0.9-1.1) VBG pH 7.46 H (7.32-7.43) VBG pCO2 30 mmHg VBG pO2 74 mmHg VBG HCO3 21 L (22-26) mmol/L VBG O2 Saturation 93.0 % VBG Base Excess -1.0 mmol/L Sodium (135-145) mmol/L Potassium (3.3-5.1) mmol/L Chloride (96-108) mmol/L Carbon Dioxide (22-29) mmol/L Anion Gap (12-20) BUN (9-16) mg/dL Creatinine (0.5-1.4) mg/dL Estim Creat Clear Calc Estimated GFR Random Glucose (60-115) mg/dL Lactic Acid 1.2 (0.5-2.0) mmol/L Calcium (8.4-10.2) mg/dL Total Bilirubin (0.0-1.0) mg/dL AST (5-37) U/L ALT (0-40) U/L Alkaline Phosphatase (39-117) U/L Troponin I High Sens 6.3 D (<3.5-35.0) ng/L C-Reactive Protein (< or = 0.50) mg/dL B-Natriuretic Peptide < 10 (<100) pg/mL Total Protein (6.5-8.0) g/dL Albumin (3.5-5.0) g/dL Urine Color Urine Appearance Urine pH (5.0-8.0) Ur Specific [place] (1.005-1.025) Urine Protein (NEG-TRACE) MG/DL Urine Glucose (UA) (NEG) MG/DL Urine Ketones (NEG) MG/DL Urine Blood (NEG) Urine Nitrite (NEG) Ur Leukocyte Esterase (NEG) Urine RBC (0) /HPF Urine WBC (0-4) /HPF Ur Squamous Epith Cells /LPF Amorphous Sediment /LPF Urine Bacteria /LPF Urine Mucus /LPF 09/25/21 Range/Units 15:49 WBC (4.8-10.8) X10*3/uL RBC (4.60-5.80) X10*6/uL Hgb (14.0-18.0) g/dl Hct (42.0-52.0) % MCV (80.0-98.0) fL MCH (27.0-33.0) pg MCHC (31.0-36.0) g/dl RDW (11.0-16.0) % Plt Count (160-400) X10*3/uL MPV (9.4-12.4) fL Immature Gran % (Auto) (0.0-0.4) % Neut % (Auto) (45-73) % Lymph % (Auto) (20-40) % [place] % (Auto) (2-11) % Eos % (Auto) (0-4) % Baso % (Auto) (0-2) % Lymph # (Auto) (1.2-4.9) X10*3/uL [place] # (Auto) (0.1-1.2) X10*3/uL Eos # (Auto) (0.0-0.4) X10*3/uL Baso # (Auto) (0.0-0.2) X10*3/uL Abs Immat Gran (auto) (0.00-0.03) X10*3/uL Absolute Neuts (auto) (2.0-8.3) x10*3/uL Absolute Nucleated RBC (0.0-0.012) X10*3/uL Nucleated RBC % (auto) (0.0-0.2) /100WBC PT (9.9-13.0) SEC INR (0.9-1.1) VBG pH (7.32-7.43) VBG pCO2 mmHg VBG pO2 mmHg VBG HCO3 (22-26) mmol/L VBG O2 Saturation % VBG Base Excess mmol/L Sodium (135-145) mmol/L Potassium (3.3-5.1) mmol/L Chloride (96-108) mmol/L Carbon Dioxide (22-29) mmol/L Anion Gap (12-20) BUN (9-16) mg/dL Creatinine (0.5-1.4) mg/dL Estim Creat Clear Calc Estimated GFR Random Glucose (60-115) mg/dL Lactic Acid (0.5-2.0) mmol/L Calcium (8.4-10.2) mg/dL Total Bilirubin (0.0-1.0) mg/dL AST (5-37) U/L ALT (0-40) U/L Alkaline Phosphatase (39-117) U/L Troponin I High Sens (<3.5-35.0) ng/L C-Reactive Protein (< or = 0.50) mg/dL B-Natriuretic Peptide (<100) pg/mL Total Protein (6.5-8.0) g/dL Albumin (3.5-5.0) g/dL Urine Color DK YELLOW Urine Appearance CLEAR Urine pH 6.0 (5.0-8.0) Ur Specific [place] >= 1.030 H (1.005-1.025) Urine Protein 1+ H (NEG-TRACE) MG/DL Urine Glucose (UA) NEG (NEG) MG/DL Urine Ketones 5 (NEG) MG/DL Urine Blood NEG (NEG) Urine Nitrite NEG (NEG) Ur Leukocyte Esterase NEG (NEG) Urine RBC 0-2 (0) /HPF Urine WBC 0 (0-4) /HPF Ur Squamous Epith Cells TRACE /LPF Amorphous Sediment 2+ /LPF Urine Bacteria NONE /LPF Urine Mucus TRACE /LPF Discharge Plan Discharge Clinical Impression: Sepsis, Hypoxia, Mucus plugging of bronchi, Schizophrenia Patient Disposition: Admitted As Inpatient
[2021-09-25] MEDS: 0.9 % Sodium Chloride 1,000 ML 999 ML IV (15:40)
[2021-09-25 15:50] LABS: MANUAL DIFF FLAG NO
[2021-09-25] MEDS: Piperacillin Sodium/Tazobactam 3.375 GM in 0.9 % Sodium Chloride 50 ML IV (15:51)
[2021-09-25 15:52] LABS: Venous Blood Gas Refer to POC result
[2021-09-25 15:53] LABS: VBG HCO3 21 mmol/L (22-26); VBG pCO2 30 mmHg; VBG pH 7.46 (7.32-7.43); VBG pO2 74 mmHg
[2021-09-25 15:55] LABS: Basophils Percent Auto 0.1 % (0-2); Eosinophils Percent Auto 0.3 % (0-4); Hematocrit 40.6 % (42.0-52.0); Hemoglobin 13.4 g/dl (14.0-18.0); Imm Gran Abs Auto 0.03 X10*3/uL (0.00-0.03); Imm Gran Pct Auto 0.4 % (0.0-0.4); Lymphocytes Absolute Auto 0.7 X10*3/uL (1.2-4.9); Mean Corpuscular Hemoglobin 29.3 pg (27.0-33.0); Mean Corpuscular Volume 88.8 fL (80.0-98.0); Mean Platelet Volume 9.1 fL (9.4-12.4); Monocytes Absolute Auto 0.6 X10*3/uL (0.1-1.2); Monocytes Percent Auto 8.7 % (2-11); Neutrophils Absolute Auto 5.7 x10*3/uL (2.0-8.3); Neutrophils Percent Auto 80.5 % (45-73); Platelet Count 249 X10*3/uL (160-400); Red Blood Count 4.57 X10*6/uL (4.60-5.80); Red Cell Distribution Width 12.7 % (11.0-16.0); White Blood Count 7.1 X10*3/uL (4.8-10.8)
[2021-09-25 16:05] LABS: Lactic Acid 1.2 mmol/L (0.5-2.0)
[2021-09-25 16:09] LABS: INTERNATIONAL NORM RATIO 1.3 (0.9-1.1)
[2021-09-25 16:10] LABS: Alanine Aminotransferase 17 U/L (0-40); Albumin Level 4.2 g/dL (3.5-5.0); Alkaline Phosphatase 79 U/L (39-117); Anion Gap 18 (12-20); Aspartate Amino Transferase 22 U/L (5-37); Bilirubin Total 0.5 mg/dL (0.0-1.0); Blood Urea Nitrogen 20 mg/dL (9-16); C Reactive Protein 10.24 mg/dL (< or = 0.50); Calcium 9.4 mg/dL (8.4-10.2); Carbon Dioxide 24 mmol/L (22-29); Chloride 104 mmol/L (96-108); Creatinine Clr Calc Pharmacy 77.7; Estimated Glomerular Filt Rate > 60; Glucose Random 133 mg/dL (60-115); Potassium 4.3 mmol/L (3.3-5.1); Sodium 142 mmol/L (135-145); Total Protein 8.3 g/dL (6.5-8.0)
[2021-09-25 16:12] LABS: Troponin-I High Sensitivity 6.3 ng/L (<3.5-35.0)
[2021-09-25] MEDS: Ketorolac Tromethamine 30 MG/ML VIAL 15 MG IVPUSH (16:23)
--- NOTE | 2021-09-25 16:31 | PC.NURSE ---
this US let pts RN and announced overheard about 1hr donnie for blood pressure @[phone]
[2021-09-25 16:41] LABS: Appearance Urine CLEAR; Color Urine DK YELLOW; Glucose Urine UA NEG (NEG); Leukocyte Esterase Urine NEG (NEG); Nitrite Urine NEG (NEG); Specific Gravity - Urine >= 1.030 (1.005-1.025); UACC Culture Trigger NO; Urine Blood NEG (NEG); Urine Ketones 5 MG/DL (NEG); Urine Protein 1+ MG/DL (NEG-TRACE)
[2021-09-25 16:45] LABS: B Type Natriuretic Peptide < 10 pg/mL (<100)
[2021-09-25 16:50] LABS: Amorphous Sediment Urine 2+ /LPF; Mucus Urine TRACE /LPF; RBC Urine 0-2 /HPF (0); Squamous Epithelial Cell Urine TRACE /LPF; WBC Urine 0 /HPF (0-4)
[2021-09-25 17:55] LABS: COVID-19 Test Negative (Negative); IDNOW Serial# 08D9AD1C
--- NOTE | 2021-09-25 18:08 | PHA.MEDREC ---
Pharmacy Consult ? Medication Reconciliation Pharmacy has completed the medication reconciliation.
--- NOTE | 2021-09-25 19:37 | PM.IMHP ---
History of Present Illness Date of Service: 09/25/21 Chief Complaint: lethargy, fever this is a 75-year-old male with past medical history of dementia, bipolar disorder, schizoaffective disorder, history of anemia, who was sent in to the hospital form senior living for lethargy and fever. patient is lethargic and not given much history therefore history is obtained mostly from EMR. According to EMS patient was recently diagnosed with pneumonia and was being treated with antibiotics at the senior living. I am unable to obtain review of system due to patient's clinical mental status. On arrival to the ED patient vitals are significant for temperature of a 100.6 degrees, respiratory rate of 22, found to be 90% on room air Placed on 2 L of nasal cannula currently satting in the high 90s. Lab significant for WBC count of 7.1, otherwise unremarkable, UA negative, CT pelvic abdomen showed small umbilical hernia containing colon, no obstruction, other chronic findings as above. It also showed bibasilar airspace disease. Patient will be admitted for further manage Review of Systems Review of Systems: Yes Unobtainable due to mental condition and Unobtainable due to mental status PMFSH Medical History Anemia Bipolar 1 disorder Dementia Dysphagia Psychosis Schizoaffective disorder Social History Advance Directives: No Advance Directives Information Provided: No Meds Allergies Allergy/AdvReac Type Severity Reaction Status Date / Time haloperidol [From Haldol] Allergy Unknown Verified 09/22/21 17:10 Home Medications Medication Instructions Recorded Confirmed Last Taken Type polyethylene glycol 3350 17 gram 17 g PO DAILY 09/16/21 09/25/21 09/25/21 History oral powder packet risperidone 1 mg/mL oral solution 0.5 mg PO BID 09/16/21 09/25/21 09/25/21 History risperidone microspheres 50 mg/2 50 mg IM Q14D 09/16/21 09/25/21 09/17/21 History mL intramuscular susp,ext release (Risperdal Consta) valproic acid (as sodium salt) 250 1,000 mg PO DAILY@1700 09/16/21 09/25/21 09/24/21 History mg/5 mL (5 mL) oral solution Physical Exam Vital Signs and Narrative: Vital Signs: Last Vital Signs Temp 99.1 F 09/25/21 18: Pulse 77 09/25/21 18:22 Resp 18 09/25/21 18:22 BP 147/75 H 09/25/21 18:22 Pulse Ox 99 09/25/21 18:22 O2 Del Method 09/25/21 18:22 O2 Flow Rate 2 09/25/21 18:22 BMI result Body Mass Index 31.4 Const: Other: patient somnolent, arousable to painful stimuli General: cooperative and no acute distress Eyes: General: appearance normal, both eyes and all related structures Resp: Effort & Inspection: normal respiratory effort Cardio: Rate: regular rate Rhythm: regular rhythm GI: Palpation (GI): Soft to palpation Auscultation: normal bowel sounds Skin: General skin exam: no rashes or lesions noted Neuro: Cognition (Neuro): normal cognition Extrem: General: Yes normal to inspection and Yes no pedal edema Results Labs CBC and Chem 7: 09/25/21 15:44 09/25/21 15:44 Labs: Laboratory Results - last 24 hr 09/25/21 09/25/21 09/25/21 15:44 15:44 15:44 MCV 88.8 MCH 29.3 MCHC 33.0 RDW 12.7 Plt Count 249 MPV 9.1 L Immature Gran % (Auto) 0.4 Neut % (Auto) 80.5 H Lymph % (Auto) 10.0 L [place] % (Auto) 8.7 Eos % (Auto) 0.3 Baso % (Auto) 0.1 Lymph # (Auto) 0.7 L [place] # (Auto) 0.6 Eos # (Auto) 0.0 Baso # (Auto) 0.0 Abs Immat Gran (auto) 0.03 Absolute Neuts (auto) 5.7 Absolute Nucleated RBC 0.000 Nucleated RBC % (auto) 0.0 PT 15.0 H INR 1.3 H VBG pH VBG pCO2 VBG pO2 VBG HCO3 VBG O2 Saturation VBG Base Excess Anion Gap 18 Estim Creat Clear Calc 77.7 Estimated GFR > 60 Random Glucose 133 H Lactic Acid Calcium 9.4 Total Bilirubin 0.5 AST 22 D ALT 17 Alkaline Phosphatase 79 Troponin I High Sens C-Reactive Protein 10.24 H B-Natriuretic Peptide Total Protein 8.3 H Albumin 4.2 Urine Color Urine Appearance Urine pH Ur Specific [place] Urine Protein Urine Glucose (UA) Urine Ketones Urine Blood Urine Nitrite Ur Leukocyte Esterase Urine RBC Urine WBC Ur Squamous Epith Cells Amorphous Sediment Urine Bacteria Urine Mucus COVID-19 (JEFF) COVID-19 Clin Com 09/25/21 09/25/21 09/25/21 15:44 15:44 15:48 MCV MCH MCHC RDW Plt Count MPV Immature Gran % (Auto) Neut % (Auto) Lymph % (Auto) [place] % (Auto) Eos % (Auto) Baso % (Auto) Lymph # (Auto) [place] # (Auto) Eos # (Auto) Baso # (Auto) Abs Immat Gran (auto) Absolute Neuts (auto) Absolute Nucleated RBC Nucleated RBC % (auto) PT INR VBG pH 7.46 H VBG pCO2 30 VBG pO2 74 VBG HCO3 21 L VBG O2 Saturation 93.0 VBG Base Excess -1.0 Anion Gap Estim Creat Clear Calc Estimated GFR Random Glucose Lactic Acid 1.2 Calcium Total Bilirubin AST ALT Alkaline Phosphatase Troponin I High Sens 6.3 D C-Reactive Protein B-Natriuretic Peptide < 10 Total Protein Albumin Urine Color Urine Appearance Urine pH Ur Specific [place] Urine Protein Urine Glucose (UA) Urine Ketones Urine Blood Urine Nitrite Ur Leukocyte Esterase Urine RBC Urine WBC Ur Squamous Epith Cells Amorphous Sediment Urine Bacteria Urine Mucus COVID-19 (JEFF) COVID-19 Clin Com 09/25/21 09/25/21 15:49 17:30 MCV MCH MCHC RDW Plt Count MPV Immature Gran % (Auto) Neut % (Auto) Lymph % (Auto) [place] % (Auto) Eos % (Auto) Baso % (Auto) Lymph # (Auto) [place] # (Auto) Eos # (Auto) Baso # (Auto) Abs Immat Gran (auto) Absolute Neuts (auto) Absolute Nucleated RBC Nucleated RBC % (auto) PT INR VBG pH VBG pCO2 VBG pO2 VBG HCO3 VBG O2 Saturation VBG Base Excess Anion Gap Estim Creat Clear Calc Estimated GFR Random Glucose Lactic Acid Calcium Total Bilirubin AST ALT Alkaline Phosphatase Troponin I High Sens C-Reactive Protein B-Natriuretic Peptide Total Protein Albumin Urine Color DK YELLOW Urine Appearance CLEAR Urine pH 6.0 Ur Specific [place] >= 1.030 H Urine Protein 1+ H Urine Glucose (UA) NEG Urine Ketones 5 Urine Blood NEG Urine Nitrite NEG Ur Leukocyte Esterase NEG Urine RBC 0-2 Urine WBC 0 Ur Squamous Epith Cells TRACE Amorphous Sediment 2+ Urine Bacteria NONE Urine Mucus TRACE COVID-19 (JEFF) Negative COVID-19 Clin Com See Note Imaging Radiologist's Impressions: Impressions Chest X-Ray 09/25/21 16:05 IMPRESSION: *No acute cardiopulmonary abnormalities. No focal pulmonary consolidation. No evidence of active pulmonary edema. Abdomen/Pelvis CT 09/25/21 16:59 IMPRESSION: Small umbilical hernia containing colon. No obstruction. Other chronic findings as above. Bibasilar airspace disease. Limited imaging due to motion degradation. Fleischner guidelines were followed. Assessment and Plan (1) Sepsis: Status: Acute (2) Hypoxia: Status: Acute (3) Encephalopathy: Status: Acute Plan 75-year-old male with past medical history of schizoaffective disorder, bipolar disorder, who presents to the hospital with lethargy and fever. Of note patient was being treated for pneumonia at senior living # sepsis - patient febrile, has tachypnea, normal lactic acid - likely sources his pneumonia - will start patient on IV antibiotics - follow cultures # encephalopathy - likely metabolic in the setting of acute infection - VBG normal with no retention - will obtain CT head given the significant encephalopath - will obtain valproic level # schizoaffective disorder - will continue home medications for now DVT prophylaxis: Lovenox Quality Stroke Does the patient have a stroke diagnosis?: No VTE Prior VTE?: No VTE Risk Level:: Medical - moderate - high VTE Device Contraindication: Treatment Not Indicated VTE Drug Contraindication: N/A - Med Ordered
--- NOTE | 2021-09-25 19:38 | PC.NURSE ---
Took report from [place] to assume care of PT, Pt resting, call light in reach, this RN continues to monitor.
[2021-09-25] MEDS: Azithromycin 500 MG in 0.9 % Sodium Chloride 250 ML 125 MG IV (19:49)
[2021-09-25] MEDS: Enoxaparin Sodium 40 MG/0.4 ML SYRINGE SUBCUT (19:49)
[2021-09-25] MEDS: cefTRIAXone sodium 1 GM in 0.9 % Sodium Chloride 50 ML IV (20:24)
[2021-09-26] VITALS (8 sets, daily range): BP systolic 126–173; BP diastolic 66–79; PULSE 77–106; RESP 18–25; TEMP 36.2–38; O2SAT 98–100
[2021-09-26 00:17] LABS: Venous Blood Gas Refer to POC result
[2021-09-26 00:19] LABS: VBG Base Excess 4.4 mmol/L; VBG HCO3 31 mmol/L (22-26); VBG pCO2 54 mmHg; VBG pH 7.36 (7.32-7.43); VBG pO2 50 mmHg
[2021-09-26 00:40] LABS: Valproate 4.8 mcg/mL (50.0-100.0)
[2021-09-26 06:11] LABS: MANUAL DIFF FLAG NO
[2021-09-26 06:27] LABS: Basophils Percent Auto 0.3 % (0-2); Eosinophils Absolute Auto 0.2 X10*3/uL (0.0-0.4); Eosinophils Percent Auto 2.6 % (0-4); Hematocrit 37.9 % (42.0-52.0); Hemoglobin 12.1 g/dl (14.0-18.0); Imm Gran Abs Auto 0.07 X10*3/uL (0.00-0.03); Imm Gran Pct Auto 1.1 % (0.0-0.4); Lymphocytes Absolute Auto 0.6 X10*3/uL (1.2-4.9); Lymphocytes Percent Auto 10.3 % (20-40); Mean Corpuscular HGB Conc 31.9 g/dl (31.0-36.0); Mean Corpuscular Hemoglobin 29.2 pg (27.0-33.0); Mean Corpuscular Volume 91.3 fL (80.0-98.0); Mean Platelet Volume 9.3 fL (9.4-12.4); Monocytes Absolute Auto 0.5 X10*3/uL (0.1-1.2); Neutrophils Absolute Auto 4.9 x10*3/uL (2.0-8.3); Neutrophils Percent Auto 77.7 % (45-73); Platelet Count 221 X10*3/uL (160-400); Red Blood Count 4.15 X10*6/uL (4.60-5.80); Red Cell Distribution Width 12.8 % (11.0-16.0); White Blood Count 6.2 X10*3/uL (4.8-10.8)
[2021-09-26 06:43] LABS: Anion Gap 13 (12-20); Blood Urea Nitrogen 23 mg/dL (9-16); Calcium 8.7 mg/dL (8.4-10.2); Carbon Dioxide 28 mmol/L (22-29); Chloride 108 mmol/L (96-108); Creatinine Clr Calc Pharmacy 95.6; Estimated Glomerular Filt Rate > 60; Glucose Random 111 mg/dL (60-115); Potassium 4.1 mmol/L (3.3-5.1); Sodium 145 mmol/L (135-145)
[2021-09-26] MEDS: 0.9 % Sodium Chloride Flush 3 ML SYRINGE IVFLUSH ×2 (07:26→15:10)
[2021-09-26 09:13] LABS: Procalcitonin 0.06 ng/mL
[2021-09-26] MEDS: risperiDONE Oral Sol 1 MG/ML SOLUTION 0.5 MG PO ×2 (10:05→19:20)
[2021-09-26] MEDS: polyethylene glycoL 3350 17 GM POWD.PACK PO (10:06)
--- NOTE | 2021-09-26 11:14 | P.PNIM_ITS ---
Subjective Subjective Date of Service: 09/26/21 Interval History: Coughing after swallowing Denies dyspnea but history limited by mental status/encephalopathy Review of Systems Review of Systems: Yes Unobtainable due to mental status Physical Exam Vital Signs: Vital Signs: Last Vital Signs Temp 99.5 F 09/26/21 07:27 Pulse 82 09/26/21 07:27 Resp 22 H 09/26/21 07:27 BP 126/67 09/26/21 07:27 Pulse Ox 99 09/26/21 07:27 O2 Del Method 09/26/21 07:27 O2 Flow Rate 2 09/26/21 07:27 BMI result Body Mass Index 31.4 Gen: in no acute distress HEENT: sclera anicteric, moist mucus membranes Neck: supple Lungs: bibasilar inspiratory crackles Heart: regular rate and rhythm, no murmurs Abd: soft, non-tender, non-distended Ext: no edema Skin: warm/well-perfused Neuro: alert and oriented to self only Psych: limited insight Objective Data Active Medications Acetaminophen (Acetaminophen 325 Mg Tablet) 650 mg PO Q6H PRN PRN Reason: Pain, Mild (Pain Scale 1-3) Docusate Sodium (Docusate Sodium 100 Mg Capsule) 100 mg PO DAILY PRN PRN Reason: Constipation Enoxaparin Sodium (Enoxaparin Sodium 40 Mg/0.4 Ml Syringe) 40 mg SUBCUT Q24H [facility] Last Admin: 09/25/21 19:49 Dose: 40 mg Documented By: ROSCOE Ceftriaxone Sodium 1 gm/ (Sodium Chloride) 50 mls @ 100 mls/hr IV Q24H [facility] Last Infusion: 09/25/21 21:50 Dose: 100 mls/hr Documented By: ROSCOE Azithromycin 500 mg/ Sodium (Chloride) 250 mls @ 125 mls/hr IV Q24H [facility] Last Infusion: 09/25/21 21:50 Dose: 125 mls/hr Documented By: ROSCOE Ondansetron HCl (Ondansetron Hcl 4 Mg/2 Ml Vial) 4 mg IVPUSH Q8H PRN PRN Reason: Nausea and Vomiting Polyethylene Glycol (Polyethylene Glycol 3350 17 Gm Powd.Pack) 17 gm PO DAILY [facility] Last Admin: 09/26/21 10:06 Dose: 17 gm Documented By: RITU Risperidone (Risperidone Oral Melanie 1 Mg/Ml Solution) 0.5 mg PO BID [facility] Last Admin: 09/26/21 10:05 Dose: 0.5 mg Documented By: RITU Sodium Chloride (0.9 % Sodium Chloride Flush 3 Ml Syringe) 3 ml IVFLUSH QSHIFT [facility] Last Admin: 09/26/21 07:26 Dose: 3 ml Documented By: COOPEB Valproic Acid (Valproic Acid (As Sodium Salt) 250 Mg/5 Ml Solution) 1,000 mg PO DAILY@1700 [facility] Labs CBC & Chem 7: 09/26/21 05:49 09/26/21 05:49 Labs: Laboratory Results - last 24 hr 09/25/21 09/25/21 09/25/21 15:44 15:44 15:44 MCV 88.8 MCH 29.3 MCHC 33.0 RDW 12.7 Plt Count 249 MPV 9.1 L Immature Gran % (Auto) 0.4 Neut % (Auto) 80.5 H Lymph % (Auto) 10.0 L [place] % (Auto) 8.7 Eos % (Auto) 0.3 Baso % (Auto) 0.1 Lymph # (Auto) 0.7 L [place] # (Auto) 0.6 Eos # (Auto) 0.0 Baso # (Auto) 0.0 Abs Immat Gran (auto) 0.03 Absolute Neuts (auto) 5.7 Absolute Nucleated RBC 0.000 Nucleated RBC % (auto) 0.0 PT 15.0 H INR 1.3 H VBG pH VBG pCO2 VBG pO2 VBG HCO3 VBG O2 Saturation VBG Base Excess Anion Gap 18 Estim Creat Clear Calc 77.7 Estimated GFR > 60 Random Glucose 133 H Lactic Acid Calcium 9.4 Total Bilirubin 0.5 AST 22 D ALT 17 Alkaline Phosphatase 79 Troponin I High Sens C-Reactive Protein 10.24 H B-Natriuretic Peptide Total Protein 8.3 H Albumin 4.2 Procalcitonin Urine Color Urine Appearance Urine pH Ur Specific [place] Urine Protein Urine Glucose (UA) Urine Ketones Urine Blood Urine Nitrite Ur Leukocyte Esterase Urine RBC Urine WBC Ur Squamous Epith Cells Amorphous Sediment Urine Bacteria Urine Mucus Valproic Acid COVID-19 (JEFF) COVID-19 Clin Com 09/25/21 09/25/21 09/25/21 15:44 15:44 15:48 MCV MCH MCHC RDW Plt Count MPV Immature Gran % (Auto) Neut % (Auto) Lymph % (Auto) [place] % (Auto) Eos % (Auto) Baso % (Auto) Lymph # (Auto) [place] # (Auto) Eos # (Auto) Baso # (Auto) Abs Immat Gran (auto) Absolute Neuts (auto) Absolute Nucleated RBC Nucleated RBC % (auto) PT INR VBG pH 7.46 H VBG pCO2 30 VBG pO2 74 VBG HCO3 21 L VBG O2 Saturation 93.0 VBG Base Excess -1.0 Anion Gap Estim Creat Clear Calc Estimated GFR Random Glucose Lactic Acid 1.2 Calcium Total Bilirubin AST ALT Alkaline Phosphatase Troponin I High Sens 6.3 D C-Reactive Protein B-Natriuretic Peptide < 10 Total Protein Albumin Procalcitonin Urine Color Urine Appearance Urine pH Ur Specific [place] Urine Protein Urine Glucose (UA) Urine Ketones Urine Blood Urine Nitrite Ur Leukocyte Esterase Urine RBC Urine WBC Ur Squamous Epith Cells Amorphous Sediment Urine Bacteria Urine Mucus Valproic Acid COVID-19 (JEFF) COVID-19 [facility] Com 09/25/21 09/25/21 09/26/21 15:49 17:30 00:08 MCV MCH MCHC RDW Plt Count MPV Immature Gran % (Auto) Neut % (Auto) Lymph % (Auto) [place] % (Auto) Eos % (Auto) Baso % (Auto) Lymph # (Auto) [place] # (Auto) Eos # (Auto) Baso # (Auto) Abs Immat Gran (auto) Absolute Neuts (auto) Absolute Nucleated RBC Nucleated RBC % (auto) PT INR VBG pH VBG pCO2 VBG pO2 VBG HCO3 VBG O2 Saturation VBG Base Excess Anion Gap Estim Creat Clear Calc Estimated GFR Random Glucose Lactic Acid Calcium Total Bilirubin AST ALT Alkaline Phosphatase Troponin I High Sens C-Reactive Protein B-Natriuretic Peptide Total Protein Albumin Procalcitonin Urine Color DK YELLOW Urine Appearance CLEAR Urine pH 6.0 Ur Specific [place] >= 1.030 H Urine Protein 1+ H Urine Glucose (UA) NEG Urine Ketones 5 Urine Blood NEG Urine Nitrite NEG Ur Leukocyte Esterase NEG Urine RBC 0-2 Urine WBC 0 Ur Squamous Epith Cells TRACE Amorphous Sediment 2+ Urine Bacteria NONE Urine Mucus TRACE Valproic Acid 4.8 L COVID-19 (JEFF) Negative COVID-19 Clin Com See Note 09/26/21 09/26/21 09/26/21 00:14 05:49 05:49 MCV 91.3 MCH 29.2 MCHC 31.9 RDW 12.8 Plt Count 221 MPV 9.3 L Immature Gran % (Auto) 1.1 H Neut % (Auto) 77.7 H Lymph % (Auto) 10.3 L [place] % (Auto) 8.0 Eos % (Auto) 2.6 Baso % (Auto) 0.3 Lymph # (Auto) 0.6 L [place] # (Auto) 0.5 Eos # (Auto) 0.2 Baso # (Auto) 0.0 Abs Immat Gran (auto) 0.07 H Absolute Neuts (auto) 4.9 Absolute Nucleated RBC 0.000 Nucleated RBC % (auto) 0.0 PT INR VBG pH 7.36 VBG pCO2 54 VBG pO2 50 VBG HCO3 31 H VBG O2 Saturation 75.0 VBG Base Excess 4.4 Anion Gap 13 Estim Creat Clear Calc 95.6 Estimated GFR > 60 Random Glucose 111 Lactic Acid Calcium 8.7 D Total Bilirubin AST ALT Alkaline Phosphatase Troponin I High Sens C-Reactive Protein B-Natriuretic Peptide Total Protein Albumin Procalcitonin Urine Color Urine Appearance Urine pH Ur Specific [place] Urine Protein Urine Glucose (UA) Urine Ketones Urine Blood Urine Nitrite Ur Leukocyte Esterase Urine RBC Urine WBC Ur Squamous Epith Cells Amorphous Sediment Urine Bacteria Urine Mucus Valproic Acid COVID-19 (JEFF) COVID-19 Clin Com 09/26/21 05:49 MCV MCH MCHC RDW Plt Count MPV Immature Gran % (Auto) Neut % (Auto) Lymph % (Auto) [place] % (Auto) Eos % (Auto) Baso % (Auto) Lymph # (Auto) [place] # (Auto) Eos # (Auto) Baso # (Auto) Abs Immat Gran (auto) Absolute Neuts (auto) Absolute Nucleated RBC Nucleated RBC % (auto) PT INR VBG pH VBG pCO2 VBG pO2 VBG HCO3 VBG O2 Saturation VBG Base Excess Anion Gap Estim Creat Clear Calc Estimated GFR Random Glucose Lactic Acid Calcium Total Bilirubin AST ALT Alkaline Phosphatase Troponin I High Sens C-Reactive Protein B-Natriuretic Peptide Total Protein Albumin Procalcitonin 0.06 Urine Color Urine Appearance Urine pH Ur Specific [place] Urine Protein Urine Glucose (UA) Urine Ketones Urine Blood Urine Nitrite Ur Leukocyte Esterase Urine RBC Urine WBC Ur Squamous Epith Cells Amorphous Sediment Urine Bacteria Urine Mucus Valproic Acid COVID-19 (JEFF) COVID-19 Clin Com Assessment and Plan (1) Encephalopathy: Status: Acute (2) Sepsis: Status: Acute (3) Hypoxia: Status: Acute Plan hospital d#2 75yo M long-term resident of [facility] with schizoaffective disorder sent in with lethargy and fever, refusing doxycycline + amox/clav Rx'ed from ED 09/22/21, admitted for sepsis + hypoxia # sepsis due to pneumonia - continue ceftriaxone + azithromycin d#2, follow BCx, trend PCT # septic encephalopathy - treat PNA as above # acute hypoxic resp failure - wean O2 as tolerated # dysphagia - WATER SUPERVISOR consultation; in the meanwhile, place on pureed solids + nectar-thick liquids # schizoaffective disorder -?continue VPA + risperidone # VTE ppx - LMWH In my clinical judgment, the patient requires continued hospitalization for the following reasons: IV ABX Quality Stroke Does the patient have a stroke diagnosis?: No VTE Prior VTE?: No VTE Risk Level:: Medical - moderate - high VTE Device Contraindication: Treatment Not Indicated VTE Drug Contraindication: N/A - Med Ordered
--- NOTE | 2021-09-26 14:17 | PC.NURSE ---
Patient diet changed to puree/nectar thick this morning after breakfast. patient was cough after taking bites during breakfast, MD made aware. patient ate all of his lunch without coughing . waiting on speech and hearing eval.
[2021-09-26] MEDS: Acetaminophen 325 MG TABLET 650 MG PO (15:09)
[2021-09-26] MEDS: cefTRIAXone sodium 1 GM in 0.9 % Sodium Chloride 50 ML IV (19:20)
[2021-09-26] MEDS: Enoxaparin Sodium 40 MG/0.4 ML SYRINGE SUBCUT (19:20)
[2021-09-26] MEDS: Azithromycin 500 MG in 0.9 % Sodium Chloride 250 ML 125 MG IV (20:02)
[2021-09-27] MEDS: 0.9 % Sodium Chloride Flush 3 ML SYRINGE IVFLUSH ×3 (00:35→20:23)
[2021-09-27 03:20] VITALS: BP 143/68; PULSE 84; RESP 18; TEMP 36.2; O2SAT 100
[2021-09-27 07:44] VITALS: BP 151/70; PULSE 75; RESP 20; TEMP 37.2; O2SAT 100
[2021-09-27] MEDS: risperiDONE Oral Sol 1 MG/ML SOLUTION 0.5 MG PO ×2 (08:40→20:20)
[2021-09-27] MEDS: polyethylene glycoL 3350 17 GM POWD.PACK PO (08:40)
--- NOTE | 2021-09-27 10:50 | P.PNIM_ITS ---
Subjective Subjective Date of Service: 09/27/21 Interval History: Coughing but states improved. Denies dyspnea. No fever since admission. Review of Systems Review of Systems: Yes all other systems are reviewed and are negative Physical Exam Vital Signs: Vital Signs: Last Vital Signs Temp 98.9 F 09/27/21 07:44 Pulse 75 09/27/21 07:44 Resp 20 09/27/21 07:44 BP 151/70 H 09/27/21 07:44 Pulse Ox 100 09/27/21 07:44 O2 Del Method 09/27/21 07:44 O2 Flow Rate 2 09/27/21 07:44 BMI result Body Mass Index 31.4 Gen: in no acute distress HEENT: sclera anicteric, moist mucus membranes Neck: supple Lungs: bibasilar inspiratory crackles, no resp distress Heart: regular rate and rhythm, no murmurs Abd: soft, non-tender, non-distended Ext: no edema Skin: warm/well-perfused Neuro: alert and oriented to self and place Psych: limited insight Objective Data Active Medications Acetaminophen (Acetaminophen 325 Mg Tablet) 650 mg PO Q6H PRN PRN Reason: Pain, Mild (Pain Scale 1-3) Last Admin: 09/26/21 15:09 Dose: 650 mg Documented By: RITU Docusate Sodium (Docusate Sodium 100 Mg Capsule) 100 mg PO DAILY PRN PRN Reason: Constipation Enoxaparin Sodium (Enoxaparin Sodium 40 Mg/0.4 Ml Syringe) 40 mg SUBCUT Q24H [facility] Last Admin: 09/26/21 19:20 Dose: 40 mg Documented By: BROOK Ceftriaxone Sodium 1 gm/ (Sodium Chloride) 50 mls @ 100 mls/hr IV Q24H [facility] Last Infusion: 09/26/21 20:07 Dose: 0 mls/hr Documented By: BROOK Azithromycin 500 mg/ Sodium (Chloride) 250 mls @ 125 mls/hr IV Q24H [facility] Last Infusion: 09/26/21 22:10 Dose: 0 mls/hr Documented By: BROOK Ondansetron HCl (Ondansetron Hcl 4 Mg/2 Ml Vial) 4 mg IVPUSH Q8H PRN PRN Reason: Nausea and Vomiting Polyethylene Glycol (Polyethylene Glycol 3350 17 Gm Powd.Pack) 17 gm PO DAILY [facility] Last Admin: 09/27/21 08:40 Dose: 17 gm Documented By: CARRILLO Risperidone (Risperidone Oral Melanie 1 Mg/Ml Solution) 0.5 mg PO BID [facility] Last Admin: 09/27/21 08:40 Dose: 0.5 mg Documented By: CARRILLO Sodium Chloride (0.9 % Sodium Chloride Flush 3 Ml Syringe) 3 ml IVFLUSH QSHIFT [facility] Last Admin: 09/27/21 08:40 Dose: 3 ml Documented By: CARRILLO Valproic Acid (Valproic Acid (As Sodium Salt) 250 Mg/5 Ml Solution) 1,000 mg PO DAILY@1700 [facility] Last Admin: 09/26/21 17:10 Dose: 1,000 mg Documented By: BROOK Labs CBC & Chem 7: 09/26/21 05:49 09/26/21 05:49 Microbiology Microbiology Results: Microbiology 09/25/21 15:46 Blood Culture - Preliminary Blood - Venous No growth after 24 hours. 09/25/21 15:44 Blood Culture - Preliminary Blood - Venous No growth after 24 hours. Assessment and Plan (1) Encephalopathy: Status: Acute (2) Sepsis: Status: Acute (3) Hypoxia: Status: Acute Plan hospital d#3 75yo M long-term resident of [facility] with schizoaffective disorder sent in with lethargy and fever, refusing doxycycline + amox/clav Rx'ed from ED , admitted for sepsis + hypoxia # sepsis due to pneumonia - continue ceftriaxone + azithromycin d#3, follow BCx, trend PCT # septic encephalopathy - resolving, treat PNA as above # acute hypoxic resp failure - wean O2 as tolerated # dysphagia - WEB SUPPORT ENGINEER consultation pending; in the meanwhile, place on pureed solids + nectar- thick liquids # schizoaffective disorder -?continue VPA + risperidone # VTE ppx - LMWH In my clinical judgment, the patient requires continued hospitalization for the following reasons: IV ABX Quality Stroke Does the patient have a stroke diagnosis?: No VTE Prior VTE?: No VTE Risk Level:: Medical - moderate - high VTE Device Contraindication: Treatment Not Indicated VTE Drug Contraindication: N/A - Med Ordered
[2021-09-27 11:42] VITALS: BP 145/68; PULSE 82; RESP 18; TEMP 37.1; O2SAT 100
--- NOTE | 2021-09-27 12:22 | MHC.SL.SWA ---
Speech Pathologist Impression: Oropharyngeal dysphagia Risk of Aspiration Due to: History of Pneumonia Reduced Cognition Dysphasia Diet Status:Upgrade Liquid Consistency and Strategies for Safe Swallow: Liquid Intake Recommendation: Thin Liquid Intake Strategies: Small Sips No Straws Solid Food Consistency: Dietary Recommendations: Grnd/Mech Altered (NDD2) Additional Modifications to Solid Foods: Per nurse at [facility], patient is on ground diet (soft bread ok) with thin liquids at baseline. Nurse reported that patient's medications were in liquid form. Patient seen for bedside dysphagia evaluation this morning. Patient presents with limited dentition, spaces in teeth. Noted prolonged oral preparatory phase, but with good oral clearance and no s/s of aspiration. Patient tolerated thin liquid by cup. Note some impulsivity taking quick sips. Recommend upgrade to baseline GROUND/MECH ALTERED (NDD2) solids with THIN liquids, medications in liquid form when possible as this is his reported baseline, otherwise crushed in puree. Recommend total supervision to monitor tolerance, provide cues as needed for aspiration precautions, provide assistance as needed w/ tray set up and feeding throughout meal. Updated MD, RN, RD of recommendations via [employer] Message. FOLLOW UP MANAGER updated diet order in [facility]. FOLLOW UP MANAGER will continue to follow. Oral Medication Intake: Crushed with Puree Please contact the pharmacy regarding appropriate crushable or liquid drug formulations that are available whenever modified delivery is recommended. Compensatory Strategies and Precautions to be Taken for Safe Swallow: Sitting Upright (90 deg) No Straw Liquids from Cup Liquids from Spoon Small Bites and Sips Alternate Liquids/Solids Rate of Ingestion Change Oral Check Avoid Specific Foods Supervision While Eating and Drinking for Safe Swallow: Total Supervision (1:1) Foods to Avoid: Tough difficult to chew foods; sticky consistencies; mixed consistencies Swallowing Recommended Treatments: Compens. Strategy Educat. Recommendation for Speech: Inpatient Speech Therapy Comment: FOLLOW UP MANAGER will continue to follow Frequency/Duration: Date Range for Service Req: Timeline to reassess: Occupational Therapy Technician Clinican/Clinical Fellow: No Supervisory Statement: I have reviewed and agree with the student/clinical fellow's documentation: N/A Speech Language Pathologist: Haley Gunn M.A., [facility]-FOLLOW UP MANAGER
[2021-09-27 15:11] VITALS: BP 156/85; PULSE 84; RESP 18; TEMP 37.6; O2SAT 100
[2021-09-27 19:43] VITALS: BP 160/81; PULSE 77; RESP 18; TEMP 36.9; O2SAT 98
[2021-09-27] MEDS: Enoxaparin Sodium 40 MG/0.4 ML SYRINGE SUBCUT (20:20)
[2021-09-27] MEDS: cefTRIAXone sodium 1 GM in 0.9 % Sodium Chloride 50 ML IV (20:20)
[2021-09-27] MEDS: Azithromycin 500 MG in 0.9 % Sodium Chloride 250 ML 125 MG IV (21:00)
[2021-09-27 23:28] VITALS: BP 151/78; PULSE 80; RESP 18; TEMP 36.3; O2SAT 100
[2021-09-28 03:38] VITALS: BP 126/75; PULSE 70; RESP 18; TEMP 36.3; O2SAT 99
[2021-09-28 06:02] LABS: Hematocrit 37.5 % (42.0-52.0); Hemoglobin 11.8 g/dl (14.0-18.0); Mean Corpuscular HGB Conc 31.5 g/dl (31.0-36.0); Mean Corpuscular Hemoglobin 29.1 pg (27.0-33.0); Mean Corpuscular Volume 92.4 fL (80.0-98.0); Mean Platelet Volume 9.2 fL (9.4-12.4); Platelet Count 259 X10*3/uL (160-400); Red Blood Count 4.06 X10*6/uL (4.60-5.80); Red Cell Distribution Width 12.7 % (11.0-16.0); White Blood Count 4.7 X10*3/uL (4.8-10.8)
--- NOTE | 2021-09-28 06:08 | PC.NURSE ---
Pt hasn't voided since ceja removal at 1500, bladder iskj=555 ml, Dr. Su was made aware, straight cath done aseptically with 420 ml clear yellow urine output, pt tolerated well.
[2021-09-28 06:20] LABS: Anion Gap 11 (12-20); Blood Urea Nitrogen 17 mg/dL (9-16); Carbon Dioxide 31 mmol/L (22-29); Chloride 106 mmol/L (96-108); Creatinine Clr Calc Pharmacy 101.1; Estimated Glomerular Filt Rate > 60; Glucose Random 102 mg/dL (60-115); Potassium 4.3 mmol/L (3.3-5.1); Sodium 144 mmol/L (135-145)
[2021-09-28 06:40] LABS: Procalcitonin 0.06 ng/mL
[2021-09-28 07:27] VITALS: BP 148/78; PULSE 75; RESP 18; TEMP 36.5; O2SAT 100
[2021-09-28] MEDS: 0.9 % Sodium Chloride Flush 3 ML SYRINGE IVFLUSH ×2 (09:17→16:11)
[2021-09-28] MEDS: polyethylene glycoL 3350 17 GM POWD.PACK PO (09:17)
[2021-09-28] MEDS: risperiDONE Oral Sol 1 MG/ML SOLUTION 0.5 MG PO (09:17)
[2021-09-28 11:48] VITALS: BP 156/79; PULSE 82; RESP 18; TEMP 36.6; O2SAT 100
--- NOTE | 2021-09-28 12:36 | MHC.SLORD ---
Speech Language Pathology Order Status: Attempted to see PT at lunch time. Pt was soundly asleep, did not wake to sternal rub. Will re-attempt/follow Pt.
--- NOTE | 2021-09-28 14:04 | P.DS_ITS ---
DS: Providers Provider Date of Service: 09/28/21 Date of admission: 09/25/21 19:33 Date of discharge: 09/28/21 Primary care physician: Sharron Benton MD DS: Diagnosis Discharge Diagnosis (1) Encephalopathy: Status: Acute (2) Sepsis: Status: Acute (3) Hypoxia: Status: Acute (4) Pneumonia: Status: Acute DS: Summary Hospital Course Hospital Course: from admission H+P by hospitalist Herminio Downing MD, 09/25/21: this is a 75-year-old male with past medical history of dementia, bipolar disorder, schizoaffective disorder, history of anemia,? who was sent in to the hospital form intermediate for lethargy and fever. ? patient is lethargic and not given much history therefore history is obtained mostly from EMR.? According to EMS patient was recently diagnosed with pneumonia and was being treated with? antibiotics at the intermediate.? I am unable to obtain review of system? due to patient's clinical mental status. ? On arrival to the ED patient vitals are significant for temperature of a 100.6 degrees, respiratory rate of 22, found to be 90% on room air Placed on 2 L of nasal cannula currently satting in the high 90s.? Lab significant for WBC count of 7.1, otherwise unremarkable, UA negative, CT pelvic abdomen showed small umbilical hernia containing colon, no obstruction, other chronic findings as above.? It also showed bibasilar airspace disease. ? Patient will be admitted for further manage This 75yo M long-term resident of [facility] with schizoaffective disorder who was sent in with lethargy and fever, refusing doxycycline + amox/clav prescirbed from ED 09/22/21, was admitted for sepsis + hypoxia. He was treated with supplemental oxygen and weaned off of it. He was given ceftriaxone and azithromycin IV. He was transitioned to cefuroxime and azithromycin PO upon discharge. Blood cultures were negative and procalcitonin was low. Mental status improved. [employer] was consulted and he was placed on NDD2 [ground/mechanically altered] solids and thin liquids. He was discharged back to [facility] for long-term care. Time Spent with Patient Time attestation: Total time spent providing and/or coordinating discharge services: Discharge coordination time: Greater than 30 minutes Quality: Safe Use of Opioids Does Pt have an Active Cancer Diagnosis on the Problem List?: No Quality: Stroke Does the patient have a stroke diagnosis?: No Physical Exam Vital Signs: Vital Signs: Last Vital Signs Temp 97.9 F 09/28/21 11:48 Pulse 82 09/28/21 11:48 Resp 18 09/28/21 11:48 BP 156/79 H 09/28/21 11:48 Pulse Ox 100 09/28/21 11:48 O2 Del Method 09/28/21 11:48 O2 Flow Rate 3 09/28/21 11:48 BMI result Body Mass Index 31.4 Gen: in no acute distress HEENT: sclera anicteric, moist mucus membranes Neck: supple Lungs: bibasilar inspiratory crackles, no resp distress Heart: regular rate and rhythm, no murmurs Abd: soft, non-tender, non-distended Ext: no edema Skin: warm/well-perfused Neuro: alert and oriented to self and place Psych: limited insight DS: Data Data Completed and Pending Completed studies during hospitalization [Text1]: Laboratory Results WBC 4.7 X10*3/uL (4.8-10.8) L 09/28/21 05:27 RBC 4.06 X10*6/uL (4.60-5.80) L 09/28/21 05:27 Hgb 11.8 g/dl (14.0-18.0) L 09/28/21 05:27 Hct 37.5 % (42.0-52.0) L 09/28/21 05:27 MCV 92.4 fL (80.0-98.0) 09/28/21 05:27 MCH 29.1 pg (27.0-33.0) 09/28/21 05:27 MCHC 31.5 g/dl (31.0-36.0) 09/28/21 05:27 RDW 12.7 % (11.0-16.0) 09/28/21 05:27 Plt Count 259 X10*3/uL (160-400) 09/28/21 05:27 MPV 9.2 fL (9.4-12.4) L 09/28/21 05:27 Immature Gran % (Auto) 1.1 % (0.0-0.4) H 09/26/21 05:49 Neut % (Auto) 77.7 % (45-73) H 09/26/21 05:49 Lymph % (Auto) 10.3 % (20-40) L 09/26/21 05:49 [place] % (Auto) 8.0 % (2-11) 09/26/21 05:49 Eos % (Auto) 2.6 % (0-4) 09/26/21 05:49 Baso % (Auto) 0.3 % (0-2) 09/26/21 05:49 Lymph # (Auto) 0.6 X10*3/uL (1.2-4.9) L 09/26/21 05:49 [place] # (Auto) 0.5 X10*3/uL (0.1-1.2) 09/26/21 05:49 Eos # (Auto) 0.2 X10*3/uL (0.0-0.4) 09/26/21 05:49 Baso # (Auto) 0.0 X10*3/uL (0.0-0.2) 09/26/21 05:49 Abs Immat Gran (auto) 0.07 X10*3/uL (0.00-0.03) H 09/26/21 05:49 Absolute Neuts (auto) 4.9 x10*3/uL (2.0-8.3) 09/26/21 05:49 Absolute Nucleated RBC 0.000 X10*3/uL (0.0-0.012) 09/28/21 05:27 Nucleated RBC % (auto) 0.0 /100WBC (0.0-0.2) 09/28/21 05:27 PT 15.0 SEC (9.9-13.0) H 09/25/21 15:44 INR 1.3 (0.9-1.1) H 09/25/21 15:44 VBG pH 7.36 (7.32-7.43) 09/26/21 00:14 VBG pCO2 54 mmHg 09/26/21 00:14 VBG pO2 50 mmHg 09/26/21 00:14 VBG HCO3 31 mmol/L (22-26) H 09/26/21 00:14 VBG O2 Saturation 75.0 % 09/26/21 00:14 VBG Base Excess 4.4 mmol/L 09/26/21 00:14 Sodium 144 mmol/L (135-145) 09/28/21 05:27 Potassium 4.3 mmol/L (3.3-5.1) 09/28/21 05:27 Chloride 106 mmol/L (96-108) 09/28/21 05:27 Carbon Dioxide 31 mmol/L (22-29) H 09/28/21 05:27 Anion Gap 11 (12-20) L 09/28/21 05:27 BUN 17 mg/dL (9-16) H 09/28/21 05:27 Creatinine 0.70 mg/dL (0.5-1.4) 09/28/21 05:27 Estim Creat Clear Calc 101.1 09/28/21 05:27 Estimated GFR > 60 09/28/21 05:27 Random Glucose 102 mg/dL (60-115) 09/28/21 05:27 Lactic Acid 1.2 mmol/L (0.5-2.0) 09/25/21 15:44 Calcium 9.0 mg/dL (8.4-10.2) 09/28/21 05:27 Total Bilirubin 0.5 mg/dL (0.0-1.0) 09/25/21 15:44 AST 22 U/L (5-37) D 09/25/21 15:44 ALT 17 U/L (0-40) 09/25/21 15:44 Alkaline Phosphatase 79 U/L (39-117) 09/25/21 15:44 Troponin I High Sens 6.3 ng/L (<3.5-35.0) D 09/25/21 15:44 C-Reactive Protein 10.24 mg/dL (< or = 0.50) H 09/25/21 15:44 B-Natriuretic Peptide < 10 pg/mL (<100) 09/25/21 15:44 Total Protein 8.3 g/dL (6.5-8.0) H 09/25/21 15:44 Albumin 4.2 g/dL (3.5-5.0) 09/25/21 15:44 Procalcitonin 0.06 ng/mL 09/28/21 05:27 Urine Color DK YELLOW 09/25/21 15:49 Urine Appearance CLEAR 09/25/21 15:49 Urine pH 6.0 (5.0-8.0) 09/25/21 15:49 Ur Specific [place] >= 1.030 (1.005-1.025) H 09/25/21 15:49 Urine Protein 1+ MG/DL (NEG-TRACE) H 09/25/21 15:49 Urine Glucose (UA) NEG MG/DL (NEG) 09/25/21 15:49 Urine Ketones 5 MG/DL (NEG) 09/25/21 15:49 Urine Blood NEG (NEG) 09/25/21 15:49 Urine Nitrite NEG (NEG) 09/25/21 15:49 Ur Leukocyte Esterase NEG (NEG) 09/25/21 15:49 Urine RBC 0-2 /HPF (0) 09/25/21 15:49 Urine WBC 0 /HPF (0-4) 09/25/21 15:49 Ur Squamous Epith Cells TRACE /LPF 09/25/21 15:49 Amorphous Sediment 2+ /LPF 09/25/21 15:49 Urine Bacteria NONE /LPF 09/25/21 15:49 Urine Mucus TRACE /LPF 09/25/21 15:49 Valproic Acid 4.8 mcg/mL (50.0-100.0) L 09/26/21 00:08 COVID-19 (JEFF) Negative (Negative) 09/25/21 17:30 COVID-19 Clin Com See Note 09/25/21 17:30 Impressions Chest X-Ray 09/25/21 16:05 IMPRESSION: *No acute cardiopulmonary abnormalities. No focal pulmonary consolidation. No evidence of active pulmonary edema. Abdomen/Pelvis CT 09/25/21 16:59 IMPRESSION: Small umbilical hernia containing colon. No obstruction. Other chronic findings as above. Bibasilar airspace disease. Limited imaging due to motion degradation. Fleischner guidelines were followed. Head CT 09/26/21 06:53 IMPRESSION: * No intracranial hemorrhage or other acute intracranial pathology compared to 09/16/2021. * Chronic volume loss of brain parenchyma with commensurate prominence of ventricles and sulci. No hydrocephalus. Labs on day of discharge: Laboratory Results - last 24 hr 09/28/21 09/28/21 09/28/21 05:27 05:27 05:27 WBC 4.7 L RBC 4.06 L Hgb 11.8 L Hct 37.5 L MCV 92.4 MCH 29.1 MCHC 31.5 RDW 12.7 Plt Count 259 MPV 9.2 L Absolute Nucleated RBC 0.000 Nucleated RBC % (auto) 0.0 Sodium 144 Potassium 4.3 Chloride 106 Carbon Dioxide 31 H Anion Gap 11 L BUN 17 H Creatinine 0.70 Estim Creat Clear Calc 101.1 Estimated GFR > 60 Random Glucose 102 Calcium 9.0 Procalcitonin 0.06 Preliminary micro results at discharge 09/25/21 15:46 Blood Culture - Preliminary Blood - Venous No growth after 48 hours. 09/25/21 15:44 Blood Culture - Preliminary Blood - Venous No growth after 48 hours. Discharge Plan Discharge Patient Disposition: er [facility] Discharge Diagnosis: pneumonia, hypoxia, encephalopathy Referrals: [facility] [Outside] - 1 Week Sharron Benton MD [Primary Care Provider] - 1 Week Discharge Medications: New cefuroxime axetil 500 mg tablet 500 mg PO BID Qty: 8 0RF azithromycin 250 mg tablet 250 mg PO DAILY 2 Days Qty: 2 0RF Rx Instructions: start on day 2 of therapy Continued polyethylene glycol 3350 17 gram Powder In Packet 17 g PO DAILY risperidone 1 mg/mL Solution 0.5 mg PO BID Risperdal Consta 50 mg/2 mL Suspension,Extended Rel Recon 50 mg IM Q14D valproic acid (as sodium salt) 250 mg/5 mL (5 mL) Solution 1,000 mg PO DAILY@1700 Discontinued doxycycline hyclate 100 mg tablet 100 mg PO BID Qty: 20 0RF amoxicillin-pot clavulanate 875-125 mg tablet 1 tab PO BID Qty: 20 0RF Discharge Orders: Discharge Order (Routine); Ordered 09/28/21 Ordered By: Galdino Duval Diet: advance to usual diet Activity on Discharge: As tolerated Stand Alone Forms: Patient Portal Discharge page Activity Restrictions/Additional Instructions: ground/mechanical soft (NDD2) solids thin liquids Care Plan Goals: recovery from pneumonia Health Concerns: pneumonia, hypoxia, encephalopathy Plan of Treatment: take cefuroxime 500 mg twice daily for 4 more days, azithromycin 250 mg once daily for 2 more days off oxygen Assessment: See Discharge Summary Patient Instructions: Pneumonitis (DC)
--- NOTE | 2021-09-28 14:16 | MHC.CM.PN ---
Addendum entered by Heydi Ureña 09/28/21 14:24: 09/26/21 imm in chart Original Note: PATIENT IS DC BACK TO [facility] FOR 6 PM VIA [facility] ([phone]) AWARE. RN AND UNIT AWARE.
[2021-09-28 15:25] LABS: COVID-19 Test Negative (Negative); IDNOW Serial# 16C4AD1C
[2021-09-28 16:00] VITALS: BP 173/84; PULSE 92; RESP 18; TEMP 36.9; O2SAT 95
--- NOTE | 2021-09-28 18:43 | PC.NURSE ---
Alert and responsive. Denies pain, VSS, afebrile, no acute resp. distress noted. Took all schedule meds. Placido Raysa updated on plan of care. Weaned of oxygen, o2 sat sustaining at 92% MD lydia updated. New order to discharge patient to [facility] [place]. Bladder scan 305ml, new order to s/c patient prior to discharge. Patient voided large amount of urine prior to s/c, PVR 60ml. Report called in to nurse Vaughan. Ambulance booked for 1800. Patient left via stretcher at 1855.
== END 2021-09-28 18:55 | disposition skilled nursing facility (03) | DRG 871 ==
LOC: HO.ED 17:32 → HO.EDOVER 19:57 → HO.S3 09-26 15:03
PROVIDERS: Admitting Provider Internal Medicine; Emergency Provider Student in an Organized Health Care Education/Training Program; PCP Internal Medicine; Visit Provider Family Medicine
DX: A41.9 Sepsis, unspecified organism (principal); J18.9 Pneumonia, unspecified organism; G93.41 Metabolic encephalopathy; J96.01 Acute respiratory failure with hypoxia; R13.10 Dysphagia, unspecified; F03.90 Unspecified dementia, unspecified severity, without behavioral disturbance, psychotic disturbance, mood disturbance, and anxiety; F25.9 Schizoaffective disorder, unspecified; F31.9 Bipolar disorder, unspecified; Z20.822 Contact with and (suspected) exposure to COVID-19; Z79.899 Other long term (current) drug therapy
CPT/HCPCS: 0241U; 36415; 70450; 71045; 71250; 74176; 80048; 80053; 80164; 81001; 81003; 82550; 82803; 83605; 83735; 83880; 84145; 84484; 85025; 85027; 85610; 86140; 87040; 87147; 87205; 87635; 92610; 96361; 96365; 96374; 96375; 99284; 99285; C1758; J0456; J0696; J1650; J1885; J2543

== ENCOUNTER 2021-10-02 20:03 | Inpatient (IN) | payer MEDICARE, MEDICAID, SELFPAY ==
--- NOTE | ~2021-10-02 | XR_ITS ---
EXAMINATION: XR CHEST CLINICAL INFORMATION: Fever COMPARISON: 09/25/2021 TECHNIQUE: Frontal view of the chest was obtained. FINDINGS: Diffuse opacities in the right greater than left lung. Given the history this may well be consistent with infiltrate. Differential would include asymmetric pulmonary edema. The cardiac silhouette is comparable. No significant effusion. Small left effusion cannot be excluded. XR/XR chest 1V IMPRESSION: Bilateral opacities right greater than left may be consistent with infiltrates given the history. Differential would include asymmetric edema. Follow-up recommended
[2021-10-02 20:22] VITALS: BP 140/70; BP 144/87; PULSE 110; PULSE 118; RESP 22; TEMP 37.9; O2SAT 93; O2SAT 98; BMI 24.3
--- NOTE | 2021-10-02 20:32 | PC.NURSE ---
[facility] reported that they offered to give iv fluids and rn refused. no prn tylenol given to pt for 100.3 oral temp. no 2nd round of antixb given.
[2021-10-02 20:55] LABS: MANUAL DIFF FLAG NO
--- NOTE | 2021-10-02 21:03 | ED_ITS ---
HPI - Weakness General Chief complaint: General Medical Stated complaint: DEHYDRATION Time Seen by Provider: 10/02/21 21:02 Source: patient, EMS and old records reviewed Mode of arrival: EMS Limitations: altered mental status History of Present Illness HPI Narrative: 75 yo male with dementia, schizoaffective disorder, encephalopathy recently admitted here for hypoxia, sepsis, pneumonia DC to [facility] on 09/28 cefuroxime/azithromycin comes today with reported elevated HR and fever. No medications given at facility unsure if he is taking the antibiotic. EMS notes on arrival that patient's room was very hot due to weather outside. MD Complaint: generalized weakness (fever, elevated HR) Onset (ago): day(s) (1) Duration: constant Location: generalized Migration: none Severity: mild Exacerbating factors: none Context: recent illness Associated symptoms: fever/chills Related Data Home Medications Medication Instructions Recorded Confirmed polyethylene glycol 3350 17 gram 17 g PO DAILY 09/16/21 09/25/21 oral powder packet risperidone 1 mg/mL oral solution 0.5 mg PO BID 09/16/21 09/25/21 risperidone microspheres 50 mg/2 50 mg IM Q14D 09/16/21 09/25/21 mL intramuscular susp,ext release (Risperdal Consta) valproic acid (as sodium salt) 250 1,000 mg PO DAILY@1700 09/16/21 09/25/21 mg/5 mL (5 mL) oral solution Previous Rx's Medication Instructions Recorded azithromycin 250 mg tablet 250 mg PO DAILY 2 days #2 tabs 09/28/21 cefuroxime axetil 500 mg tablet 500 mg PO BID #8 tabs 09/28/21 Allergies Allergy/AdvReac Type Severity Reaction Status Date / Time haloperidol [From Haldol] Allergy Unknown Verified 09/22/21 17:10 Review of Systems Review of Systems: ROS unable to be obtained due to altered mental status [facility] Past Medical History Attestation statement: The following information was validated with the patient. Medical History Anemia Bipolar 1 disorder Dementia Dysphagia Encephalopathy Hypoxia Mucus plugging of bronchi Psychosis Schizoaffective disorder Schizophrenia Sepsis Social History Social History Household Members: Other Housing: Care Home Do you presently have visiting nurse or other home services: No Unable to assess alcohol history related to: Unknown Patient Tobacco Use Status: Tobacco use Unknown Advance Directives: No Physical Exam Vital Signs: Vital Signs: Last Vital Signs Temp 100.6 F H 10/02/21 21:10 Pulse 109 H 10/02/21 22:37 Resp 24 H 10/02/21 22:37 BP 146/83 H 10/02/21 22:37 Pulse Ox 94 10/02/21 22:37 O2 Del Method 10/02/21 22:37 BMI result Body Mass Index 24.3 Appearance: Alert. Confused. mild acute distress. Eyes: Pupils equal, round and reactive to light. ENT: Pharynx normal. Neck: Normal inspection. Neck supple. CVS: Normal heart rate and rhythm. Pulses normal. Respiratory: No respiratory distress. Breath sounds very diminished throughout Abdomen: Soft and non-tender. Skin: Skin warm and dry. Normal skin color. Normal skin turgor. Extremities: trace pitting lower extremity edema. No calf ttp Neuro: Confused cannot participate in exam does follow commands and says yes or no. Course Course Course Narrative: will add on vancomcyin admit to hospital for HCAP MDM - Weakness MDM Narrative Medical decision making narrative: 75 yo male with dementia, schizoaffective disorder, encephalopathy recently admitted here for hypoxia, sepsis, pneumonia at this time he is very diminished on exam but in no resp distress will give fluids, PO tylenol, repeat CXR, COVID swab. Cultures/lactic acid. Empiric zosyn ordered Lab Data Result diagrams: 10/02/21 20:45 10/02/21 20:45 Labs: Lab Results 10/02/21 10/02/21 10/02/21 Range/Units 20:45 20:45 20:45 WBC 7.7 (4.8-10.8) X10*3/uL RBC 4.47 L (4.60-5.80) X10*6/uL Hgb 13.1 L (14.0-18.0) g/dl Hct 40.6 L (42.0-52.0) % MCV 90.8 (80.0-98.0) fL MCH 29.3 (27.0-33.0) pg MCHC 32.3 (31.0-36.0) g/dl RDW 13.2 (11.0-16.0) % Plt Count 337 D (160-400) X10*3/uL MPV 9.6 (9.4-12.4) fL Immature Gran % (Auto) 0.5 H (0.0-0.4) % Neut % (Auto) 79.4 H (45-73) % Lymph % (Auto) 9.9 L (20-40) % [place] % (Auto) 9.5 (2-11) % Eos % (Auto) 0.6 (0-4) % Baso % (Auto) 0.1 (0-2) % Lymph # (Auto) 0.8 L (1.2-4.9) X10*3/uL [place] # (Auto) 0.7 (0.1-1.2) X10*3/uL Eos # (Auto) 0.1 (0.0-0.4) X10*3/uL Baso # (Auto) 0.0 (0.0-0.2) X10*3/uL Abs Immat Gran (auto) 0.04 H (0.00-0.03) X10*3/uL Absolute Neuts (auto) 6.1 (2.0-8.3) x10*3/uL Absolute Nucleated RBC 0.000 (0.0-0.012) X10*3/uL Nucleated RBC % (auto) 0.0 (0.0-0.2) /100WBC Sodium 145 (135-145) mmol/L Potassium 4.1 (3.3-5.1) mmol/L Chloride 105 (96-108) mmol/L Carbon Dioxide 28 (22-29) mmol/L Anion Gap 16 (12-20) BUN 29 H D (9-16) mg/dL Creatinine 0.88 (0.5-1.4) mg/dL Estim Creat Clear Calc 77.1 Estimated GFR > 60 Random Glucose 174 H D (60-115) mg/dL Lactic Acid (0.5-2.0) mmol/L Calcium 9.6 D (8.4-10.2) mg/dL Troponin I High Sens (<3.5-35.0) ng/L COVID-19 (JEFF) Negative (Negative) COVID-19 Clin Com See Note 06/25/22 06/25/22 Range/Units 20:45 20:45 WBC (4.8-10.8) X10*3/uL RBC (4.60-5.80) X10*6/uL Hgb (14.0-18.0) g/dl Hct (42.0-52.0) % MCV (80.0-98.0) fL MCH (27.0-33.0) pg MCHC (31.0-36.0) g/dl RDW (11.0-16.0) % Plt Count (160-400) X10*3/uL MPV (9.4-12.4) fL Immature Gran % (Auto) (0.0-0.4) % Neut % (Auto) (45-73) % Lymph % (Auto) (20-40) % [place] % (Auto) (2-11) % Eos % (Auto) (0-4) % Baso % (Auto) (0-2) % Lymph # (Auto) (1.2-4.9) X10*3/uL [place] # (Auto) (0.1-1.2) X10*3/uL Eos # (Auto) (0.0-0.4) X10*3/uL Baso # (Auto) (0.0-0.2) X10*3/uL Abs Immat Gran (auto) (0.00-0.03) X10*3/uL Absolute Neuts (auto) (2.0-8.3) x10*3/uL Absolute Nucleated RBC (0.0-0.012) X10*3/uL Nucleated RBC % (auto) (0.0-0.2) /100WBC Sodium (135-145) mmol/L Potassium (3.3-5.1) mmol/L Chloride (96-108) mmol/L Carbon Dioxide (22-29) mmol/L Anion Gap (12-20) BUN (9-16) mg/dL Creatinine (0.5-1.4) mg/dL Estim Creat Clear Calc Estimated GFR Random Glucose (60-115) mg/dL Lactic Acid 1.6 (0.5-2.0) mmol/L Calcium (8.4-10.2) mg/dL Troponin I High Sens 3.9 (<3.5-35.0) ng/L COVID-19 (JEFF) (Negative) COVID-19 Clin Com ECG Data Attestation: I personally reviewed and interpreted this ECG as follows: ECG interpretation date: 10/02/21 ECG interpretation time: 21:51 Interpretation: Rate: 122 Rhythm: sinus tachycardia [place]: normal Normal P waves. Normal RAMYA. Normal QRS complex. ST T wave : normal no JANA qTC: normal prior studies: no acute ischemia The study has been interpreted contemporaneously by me. . Discharge Plan Discharge Clinical Impression: Fever Qualifiers: Fever type: unspecified Qualified Code(s): R50.9 - Fever, unspecified Pneumonia Qualifiers: Pneumonia type: due to unspecified organism Laterality: bilateral Lung location: unspecified part of lung Qualified Code(s): J18.9 - Pneumonia, unspecified organism Patient Disposition: Admitted As Inpatient
--- NOTE | 2021-10-02 21:06 | ECG_ITS ---
Test Reason : WEAKNESS Blood Pressure : / mmHG Vent. Rate : 122 BPM Atrial Rate : 122 BPM P-R Int : 124 ms QRS Dur : 072 ms QT Int : 318 ms P-R-T Axes : 068 049 036 degrees QTc Int : 453 ms Sinus tachycardia Nonspecific ST and T wave abnormality Abnormal ECG When compared with ECG of 16-SEP-2021 11:54, Vent. rate has increased BY 49 BPM Referred By: Britany Ortiz Electronically Signed By:CINTHIA KIRKLAND MD
[2021-10-02 21:10] VITALS: TEMP 38.1
[2021-10-02 21:10] LABS: COVID-19 Test Negative (Negative); IDNOW Serial# 55D5AD1C
[2021-10-02] MEDS: 0.9 % Sodium Chloride 1,000 ML 999 ML IV (21:10)
[2021-10-02] MEDS: Piperacillin Sodium/Tazobactam 4.5 GM in 0.9 % Sodium Chloride 100 ML IV (21:18)
[2021-10-02 21:19] VITALS: BP 151/86; PULSE 110; RESP 20; O2SAT 92
[2021-10-02 21:26] LABS: Basophils Percent Auto 0.1 % (0-2); Eosinophils Absolute Auto 0.1 X10*3/uL (0.0-0.4); Eosinophils Percent Auto 0.6 % (0-4); Hematocrit 40.6 % (42.0-52.0); Hemoglobin 13.1 g/dl (14.0-18.0); Imm Gran Abs Auto 0.04 X10*3/uL (0.00-0.03); Imm Gran Pct Auto 0.5 % (0.0-0.4); Lymphocytes Absolute Auto 0.8 X10*3/uL (1.2-4.9); Lymphocytes Percent Auto 9.9 % (20-40); Mean Corpuscular HGB Conc 32.3 g/dl (31.0-36.0); Mean Corpuscular Hemoglobin 29.3 pg (27.0-33.0); Mean Corpuscular Volume 90.8 fL (80.0-98.0); Mean Platelet Volume 9.6 fL (9.4-12.4); Monocytes Absolute Auto 0.7 X10*3/uL (0.1-1.2); Monocytes Percent Auto 9.5 % (2-11); Neutrophils Absolute Auto 6.1 x10*3/uL (2.0-8.3); Neutrophils Percent Auto 79.4 % (45-73); Platelet Count 337 X10*3/uL (160-400); Red Blood Count 4.47 X10*6/uL (4.60-5.80); Red Cell Distribution Width 13.2 % (11.0-16.0); White Blood Count 7.7 X10*3/uL (4.8-10.8)
[2021-10-02] MEDS: Acetaminophen Oral Liquid 650 MG/20.3 ML SOLUTION PO (22:18)
[2021-10-02 22:35] LABS: Lactic Acid 1.6 mmol/L (0.5-2.0)
[2021-10-02 22:37] VITALS: BP 146/83; PULSE 109; RESP 24; O2SAT 94
[2021-10-02 22:38] LABS: Anion Gap 16 (12-20); Blood Urea Nitrogen 29 mg/dL (9-16); Calcium 9.6 mg/dL (8.4-10.2); Carbon Dioxide 28 mmol/L (22-29); Chloride 105 mmol/L (96-108); Creatinine Clr Calc Pharmacy 77.1; Estimated Glomerular Filt Rate > 60; Glucose Random 174 mg/dL (60-115); Potassium 4.1 mmol/L (3.3-5.1); Sodium 145 mmol/L (135-145)
[2021-10-02 22:42] LABS: Troponin-I High Sensitivity 3.9 ng/L (<3.5-35.0)
[2021-10-02 23:03] LABS: Alanine Aminotransferase 57 U/L (0-40); Albumin Level 3.8 g/dL (3.5-5.0); Alkaline Phosphatase 101 U/L (39-117); Aspartate Amino Transferase 46 U/L (5-37); Bilirubin Direct 0.3 mg/dL (0.0-0.5); Bilirubin Total 0.5 mg/dL (0.0-1.0); Magnesium 2.5 mg/dL (1.6-2.6); Total Protein 7.8 g/dL (6.5-8.0)
--- NOTE | 2021-10-02 23:55 | P.HPHOSP_ITS ---
History of Present Illness Date of Service: 10/02/21 Chief Complaint: weakness This is a 75-year-old male with past medical history of schizoaffective disorder, schizophrenia, dementia, bipolar disorder, history of anemia who was admitted to the hospital from 09/25-09/28 and treated for sepsis and hypoxia secondary to pneumonia, patient was discharged on cefuroxime and azithromycin. [facility] with elevated heart rate and fever. Patient has dementia at baseline and does not communicate well, is a poor historian and unable to give much history about his presentation. On arrival to the ED patient had a fever of 100.6, heart rate of 110, respiratory rate of 20, satting 92% on room air Labs are significant for WBC count of 7.7, hemoglobin of 13.1, hematocrit 40.6, BUN of 29, COVID-19 negative Chest x-ray shows Bilateral opacities right greater than left may be consistent with infiltrates given the history. Pt being admitted for further management Review of Systems Review of Systems: Yes Unobtainable due to mental condition and Unobtainable due to mental status PMFSH Medical History Anemia Bipolar 1 disorder Dementia Dysphagia Encephalopathy Hypoxia Mucus plugging of bronchi Psychosis Schizoaffective disorder Schizophrenia Sepsis Social History Household Members: Other Housing: Snf Do you presently have visiting nurse or other home services: No Unable to assess alcohol history related to: Unknown Patient Tobacco Use Status: Tobacco use Unknown Advance Directives: No Meds Allergies Allergy/AdvReac Type Severity Reaction Status Date / Time haloperidol [From Haldol] Allergy Unknown Verified 09/22/21 17:10 Active Medications: Current Medications Vancomycin HCl 2,000 mg/ (Sodium Chloride) 540 mls @ 270 mls/hr IV ONCE ONE Stop: 10/03/21 00:05 Last Admin: 10/02/21 22:31 Dose: 270 mls/hr Pharmacy Consult (Consult Rx Perform Med Rec) 1 each MISCELLANE ONCE PRN PRN Reason: Consult order Home Medications Medication Instructions Recorded Confirmed Last Taken Type polyethylene glycol 3350 17 gram 17 g PO DAILY 09/16/21 10/02/21 09/25/21 History oral powder packet risperidone 1 mg/mL oral solution 0.5 mg PO BID 09/16/21 10/02/21 09/25/21 History risperidone microspheres 50 mg/2 50 mg IM Q14D 09/16/21 10/02/21 09/17/21 Histo ry mL intramuscular susp,ext release (Risperdal Consta) valproic acid (as sodium salt) 250 1,000 mg PO DAILY@1700 09/16/21 10/02/21 09/24/21 History mg/5 mL (5 mL) oral solution Physical Exam Vital Signs and Narrative: Vital Signs: Last Vital Signs Temp 100.6 F H 10/02/21 21:10 Pulse 109 H 10/02/21 22:37 Resp 24 H 10/02/21 22:37 BP 146/83 H 10/02/21 22:37 Pulse Ox 94 10/02/21 22:37 O2 Del Method 10/02/21 22:37 BMI result Body Mass Index 24.3 Const: Other: Patient awake, looks at me but not answering any of my questions General: no acute distress Eyes: General: appearance normal, both eyes and all related structures Resp: Other: Bilateral crackles Effort & Inspection: normal respiratory effort Cardio: Rate: regular rate Rhythm: regular rhythm GI: Palpation (GI): Soft to palpation Auscultation: normal bowel sounds Skin: General skin exam: no rashes or lesions noted Neuro: Cognition (Neuro): normal cognition Extrem: General: Yes normal to inspection and Yes no pedal edema Results Labs CBC and Chem 7: 10/02/21 20:45 10/02/21 20:45 Labs: Laboratory Results - last 24 hr 10/02/21 10/02/21 10/02/21 20:45 20:45 20:45 MCV 90.8 MCH 29.3 MCHC 32.3 RDW 13.2 Plt Count 337 D MPV 9.6 Immature Gran % (Auto) 0.5 H Neut % (Auto) 79.4 H Lymph % (Auto) 9.9 L [place] % (Auto) 9.5 Eos % (Auto) 0.6 Baso % (Auto) 0.1 Lymph # (Auto) 0.8 L [place] # (Auto) 0.7 Eos # (Auto) 0.1 Baso # (Auto) 0.0 Abs Immat Gran (auto) 0.04 H Absolute Neuts (auto) 6.1 Absolute Nucleated RBC 0.000 Nucleated RBC % (auto) 0.0 Anion Gap 16 Estim Creat Clear Calc 77.1 Estimated GFR > 60 Random Glucose 174 H D Lactic Acid Calcium 9.6 D Magnesium 2.5 Total Bilirubin 0.5 Direct Bilirubin 0.3 AST 46 H D ALT 57 H Alkaline Phosphatase 101 D Troponin I High Sens Total Protein 7.8 Albumin 3.8 COVID-19 (JEFF) Negative COVID-19 Clin Com See Note 10/02/21 10/02/21 20:45 20:45 MCV MCH MCHC RDW Plt Count MPV Immature Gran % (Auto) Neut % (Auto) Lymph % (Auto) [place] % (Auto) Eos % (Auto) Baso % (Auto) Lymph # (Auto) [place] # (Auto) Eos # (Auto) Baso # (Auto) Abs Immat Gran (auto) Absolute Neuts (auto) Absolute Nucleated RBC Nucleated RBC % (auto) Anion Gap Estim Creat Clear Calc Estimated GFR Random Glucose Lactic Acid 1.6 Calcium Magnesium Total Bilirubin Direct Bilirubin AST ALT Alkaline Phosphatase Troponin I High Sens 3.9 Total Protein Albumin COVID-19 (JEFF) COVID-19 Clin Com Imaging Radiologist's Impressions: Impressions Chest X-Ray 10/02/21 21:08 IMPRESSION: Bilateral opacities right greater than left may be consistent with infiltrates given the history. Differential would include asymmetric edema. Follow-up recommended Assessment and Plan (1) Sepsis: Status: Acute (2) Pneumonia: Qualifiers: Laterality: bilateral Lung location: unspecified part of lung Pneumonia type: due to unspecified organism Qualified Code(s): J18.9 - Pneumonia, unspecified organism Status: Acute Plan 75-year-old male with past medical history of bipolar as well as schizoaffective disorder who presents to the hospital with tachycardia and fever found to have pneumonia Of note patient was discharged from the hospital on 09/28 after being treated for pneumonia and [facility] on cefuroxime in his room I sent # sepsis - patient febrile, has tachycardia - likely source pneumonia - chest x-ray finding as above - will treat for hospital-acquired with vancomycin and Zosyn - follow cultures # pneumonia - patient was recently treated for pneumonia and was sent on antibiotics as above - at this time will treat with vanc and Zosyn - follow cultures # mood disorder - including bipolar is a levels schizoaffective - continue home medications DVT prophylaxis: Lovenox Given the worsening pneumonia as a sepsis, and IV antibiotic requirement, patient will require a minimum 2 night hospital stay for further management and monitoring Quality Stroke Does the patient have a stroke diagnosis?: No VTE Prior VTE?: No VTE Risk Level:: Medical - moderate - high VTE Device Contraindication: Treatment Not Indicated VTE Drug Contraindication: N/A - Med Ordered
[2021-10-03] VITALS (11 sets, daily range): BP systolic 118–181; BP diastolic 64–90; PULSE 89–113; RESP 16–21; TEMP 36–37.8; O2SAT 93–97
[2021-10-03] MEDS: 0.9 % Sodium Chloride Flush 3 ML SYRINGE IVFLUSH (01:45)
--- NOTE | 2021-10-03 08:38 | PC.NURSE ---
phlebotomy came and patient refused to have morning labs drawn.
--- NOTE | 2021-10-03 09:46 | PHA.MEDREC ---
Pharmacy Consult ? Medication Reconciliation Pharmacy has completed the medication reconciliation. Patient came from [facility] with a medications list. Try to confirm last dose of Risperdal Consta however call was dropped each time I was transfer to nurse. Edyta Rivero, PharmD
--- NOTE | 2021-10-03 09:51 | PHA.PROG ---
Admission Date/Time: October 02, 2021 23:54 Indication: Pneumonia Weight in k.1 kg Adjusted body weight in K.6 kg [place] body weight in K kg Obesity Dosing Indication % IBW: 105 % Serum Creatinine - Last 168 Hours 10/02/21 20:45 Creatinine 0.88 Estimated CrCl and GFR - Last 168 Hours 10/02/21 20:45 Estim Creat Clear Calc 77.1 Estimated GFR > 60 Vancomycin Loading Dose: 2000 mg (25 mg/kg) Current Vancomycin Dosing Regimen: 1500 mg (19 mg/kg) Date and Time for next Vancomycin Level to be drawn: 10/03 @ 2100 Pharmacist Comments on Vancomycin Plan: Patient recieve loading dose vancomycin 2000 mg in the ED 10/02/21 @ 2231. Maitenance dose 1500 mg Q24H to begin 10/03/21 @ 2300. Expected AUC 458 with a trough of 12.3. Patient refused AM labs today (10/03/21), therefore dose based off AM labs. If patient continues to refuse labs alternative ABX may need to be consider because dose need to be adjust by renal function and levels. Random level schedule prior to 3rd dose tomorrow incase renal function cannot be access if patient refuses AM lab tomorrow Edyta Rivero PharmD Vancomycin dosing will take advantage of [employer] as a clinical decision support tool that uses Bayesian modeling to calculate individual patient's pharmacokinetic parameters and forecast the patient's drug concentration time course with the target goal AUC 24 range of 400 - 600 mg/L/hr.
[2021-10-03 12:38] LABS: MANUAL DIFF FLAG NO
[2021-10-03 12:39] LABS: Hematocrit 39.7 % (42.0-52.0); Hemoglobin 12.4 g/dl (14.0-18.0); Mean Corpuscular HGB Conc 31.2 g/dl (31.0-36.0); Mean Corpuscular Volume 92.8 fL (80.0-98.0); Red Blood Count 4.28 X10*6/uL (4.60-5.80); Red Cell Distribution Width 13.2 % (11.0-16.0); White Blood Count 8.1 X10*3/uL (4.8-10.8)
[2021-10-03 12:40] LABS: Basophils Percent Auto 0.2 % (0-2); Eosinophils Absolute Auto 0.1 X10*3/uL (0.0-0.4); Eosinophils Percent Auto 1.2 % (0-4); Imm Gran Abs Auto 0.04 X10*3/uL (0.00-0.03); Imm Gran Pct Auto 0.5 % (0.0-0.4); Lymphocytes Percent Auto 12.9 % (20-40); Mean Platelet Volume 9.8 fL (9.4-12.4); Monocytes Absolute Auto 0.9 X10*3/uL (0.1-1.2); Neutrophils Percent Auto 74.2 % (45-73); Platelet Count 342 X10*3/uL (160-400)
[2021-10-03 12:56] LABS: Anion Gap 16 (12-20); Blood Urea Nitrogen 25 mg/dL (9-16); Calcium 9.2 mg/dL (8.4-10.2); Carbon Dioxide 26 mmol/L (22-29); Chloride 110 mmol/L (96-108); Estimated Glomerular Filt Rate > 60; Glucose Random 112 mg/dL (60-115); Potassium 4.3 mmol/L (3.3-5.1); Sodium 148 mmol/L (135-145)
[2021-10-03 13:05] LABS: B Type Natriuretic Peptide < 10 pg/mL (<100)
--- NOTE | 2021-10-03 14:12 | HO.PM.IMPN ---
Subjective Subjective Date of Service: 10/03/21 Interval History: cc: fever interval history:no complaints Cardiovascular Cardiovascular: Reports no additional cardiovascular complaints Respiratory Respiratory: Reports no additional respiratory complaints Physical Exam Vital Signs: Vital Signs: Last Vital Signs Temp 96.8 F 10/03/21 06:19 Pulse 90 10/03/21 10:26 Resp 18 10/03/21 10:26 BP 137/79 10/03/21 10:26 Pulse Ox 93 10/03/21 10:26 O2 Del Method 10/03/21 10:26 BMI result Body Mass Index 24.3 General: AO X 2, no acute distress Resp: Crackles bilateral, no accessory muscles used CVS: S1,S2,RRR GI: soft, non tender, non distended Neuro: motor grossly intact, alert Psych: appropriate affect, imapired insight Objective Data Active Medications Acetaminophen (Acetaminophen 325 Mg Tablet) 650 mg PO Q6H PRN PRN Reason: Pain, Mild (Pain Scale 1-3) Docusate Sodium (Docusate Sodium 100 Mg Capsule) 100 mg PO DAILY PRN PRN Reason: Constipation Enoxaparin Sodium (Enoxaparin Sodium 40 Mg/0.4 Ml Syringe) 40 mg SUBCUT Q24H [facility] Piperacillin Sod/Tazobactam (Sod 3.375 gm/ Sodium Chloride) 50 mls @ 100 mls/hr IV Q6H [facility] Ondansetron HCl (Ondansetron Hcl 4 Mg/2 Ml Vial) 4 mg IVPUSH Q8H PRN PRN Reason: Nausea and Vomiting Pharmacy Consult (Consult Rx Perform Med Rec) 1 each MISCELLANE ONCE PRN PRN Reason: Consult order Pharmacy Consult (Consult Rx Vancomycin Dosing) 1 each MISCELLANE DAILY PRN PRN Reason: Consult order Polyethylene Glycol (Polyethylene Glycol 3350 17 Gm Powd.Pack) 17 gm PO DAILY [facility] Risperidone (Risperidone Oral Melanie 1 Mg/Ml Solution) 0.5 mg PO BID [facility] Sodium Chloride (0.9 % Sodium Chloride Flush 3 Ml Syringe) 3 ml IVFLUSH QSHIFT [facility] Last Admin: 10/03/21 10:20 Dose: Not Given Documented By: SUSIE Non-Admin Reason: IV Running Valproic Acid (Valproic Acid (As Sodium Salt) 250 Mg/5 Ml Solution) 1,000 mg PO DAILY@1700 [facility] Labs CBC & Chem 7: 10/03/21 12:26 10/03/21 12:26 Labs: Laboratory Results - last 24 hr 10/02/21 10/02/21 10/02/21 20:45 20:45 20:45 MCV 90.8 MCH 29.3 MCHC 32.3 RDW 13.2 Plt Count 337 D MPV 9.6 Immature Gran % (Auto) 0.5 H Neut % (Auto) 79.4 H Lymph % (Auto) 9.9 L Placer % (Auto) 9.5 Eos % (Auto) 0.6 Baso % (Auto) 0.1 Lymph # (Auto) 0.8 L Placer # (Auto) 0.7 Eos # (Auto) 0.1 Baso # (Auto) 0.0 Abs Immat Gran (auto) 0.04 H Absolute Neuts (auto) 6.1 Absolute Nucleated RBC 0.000 Nucleated RBC % (auto) 0.0 Anion Gap 16 Estim Creat Clear Calc 77.1 Estimated GFR > 60 Random Glucose 174 H D Lactic Acid Calcium 9.6 D Magnesium 2.5 Total Bilirubin 0.5 Direct Bilirubin 0.3 AST 46 H D ALT 57 H Alkaline Phosphatase 101 D Troponin I High Sens B-Natriuretic Peptide Total Protein 7.8 Albumin 3.8 COVID-19 (JEFF) Negative COVID-19 Clin Com See Note 10/02/21 10/02/21 10/03/21 20:45 20:45 12:26 MCV 92.8 MCH 29.0 MCHC 31.2 RDW 13.2 Plt Count 342 MPV 9.8 Immature Gran % (Auto) 0.5 H Neut % (Auto) 74.2 H Lymph % (Auto) 12.9 L [place] % (Auto) 11.0 Eos % (Auto) 1.2 Baso % (Auto) 0.2 Lymph # (Auto) 1.0 L Placer # (Auto) 0.9 Eos # (Auto) 0.1 Baso # (Auto) 0.0 Abs Immat Gran (auto) 0.04 H Absolute Neuts (auto) 6.0 Absolute Nucleated RBC 0.000 Nucleated RBC % (auto) 0.0 Anion Gap Estim Creat Clear Calc Estimated GFR Random Glucose Lactic Acid 1.6 Calcium Magnesium Total Bilirubin Direct Bilirubin AST ALT Alkaline Phosphatase Troponin I High Sens 3.9 B-Natriuretic Peptide Total Protein Albumin COVID-19 (JEFF) COVID-19 Clin Com 10/03/21 10/03/21 12:26 12:26 MCV MCH MCHC RDW Plt Count MPV Immature Gran % (Auto) Neut % (Auto) Lymph % (Auto) Placer % (Auto) Eos % (Auto) Baso % (Auto) Lymph # (Auto) Placer # (Auto) Eos # (Auto) Baso # (Auto) Abs Immat Gran (auto) Absolute Neuts (auto) Absolute Nucleated RBC Nucleated RBC % (auto) Anion Gap 16 Estim Creat Clear Calc 93.0 Estimated GFR > 60 Random Glucose 112 D Lactic Acid Calcium 9.2 Magnesium Total Bilirubin Direct Bilirubin AST ALT Alkaline Phosphatase Troponin I High Sens B-Natriuretic Peptide < 10 Total Protein Albumin COVID-19 (JEFF) COVID-19 Clin Com Assessment and Plan (1) Sepsis: Status: Acute Plan 75M presented with fevers sepsis due to aspiration pneumonia vs 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
--- NOTE | 2021-10-03 19:16 | PC.NURSE ---
pt refusing meds and all care stating I dont want it. pt continued to refuse post education.
[2021-10-03] MEDS: Enoxaparin Sodium 40 MG/0.4 ML SYRINGE SUBCUT (22:47)
[2021-10-03] MEDS: risperiDONE Oral Sol 1 MG/ML SOLUTION 0.5 MG PO (22:50)
[2021-10-03] MEDS: Acetaminophen Supp 650 MG SUPP.RECT PR (23:21)
--- NOTE | 2021-10-03 23:24 | PC.NURSE ---
pt temp noted to be 99.7, HR 107. pt has no complaints and is in no distress. pt encouraged to drink fluids/ offered snack although refused. MD Brasher Made aware of VS. tylenol supp admin OK
[2021-10-04 02:40] VITALS: BMI 25.0
[2021-10-04 03:16] VITALS: RESP 18
[2021-10-04] MEDS: Piperacillin Sodium/Tazobactam 3.375 GM in 0.9 % Sodium Chloride 50 ML IV ×4 (05:30→20:48)
[2021-10-04 07:50] VITALS: BP 122/74; PULSE 100; RESP 20; TEMP 37.6; O2SAT 94
[2021-10-04] MEDS: risperiDONE Oral Sol 1 MG/ML SOLUTION 0.5 MG PO ×2 (09:10→20:48)
[2021-10-04] MEDS: 0.9 % Sodium Chloride Flush 3 ML SYRINGE IVFLUSH ×3 (09:10→20:48)
[2021-10-04 11:07] LABS: Hematocrit 40.4 % (42.0-52.0); Hemoglobin 12.4 g/dl (14.0-18.0); Mean Corpuscular HGB Conc 30.7 g/dl (31.0-36.0); Mean Corpuscular Hemoglobin 28.5 pg (27.0-33.0); Mean Corpuscular Volume 92.9 fL (80.0-98.0); Mean Platelet Volume 9.6 fL (9.4-12.4); Platelet Count 381 X10*3/uL (160-400); Red Blood Count 4.35 X10*6/uL (4.60-5.80); Red Cell Distribution Width 13.5 % (11.0-16.0); White Blood Count 5.8 X10*3/uL (4.8-10.8)
[2021-10-04 11:22] LABS: Anion Gap 15 (12-20); Blood Urea Nitrogen 24 mg/dL (9-16); Calcium 9.5 mg/dL (8.4-10.2); Carbon Dioxide 26 mmol/L (22-29); Chloride 109 mmol/L (96-108); Creatinine Clr Calc Pharmacy 79.9; Estimated Glomerular Filt Rate > 60; Glucose Fasting 186 mg/dL (60-99); Potassium 4.2 mmol/L (3.3-5.1); Sodium 146 mmol/L (135-145)
[2021-10-04 11:39] VITALS: BP 151/72; PULSE 100; RESP 20; TEMP 37.2; O2SAT 96
--- NOTE | 2021-10-04 13:46 | P.PNIM_ITS ---
Subjective Subjective Date of Service: 10/04/21 Interval History: cc: fever interval history:no complaints Cardiovascular Cardiovascular: Reports no additional cardiovascular complaints Respiratory Respiratory: Reports no additional respiratory complaints Physical Exam Vital Signs: Vital Signs: Last Vital Signs Temp 99.0 F 10/04/21 11:39 Pulse 100 10/04/21 11:39 Resp 20 10/04/21 11:39 BP 151/72 H 10/04/21 11:39 Pulse Ox 96 10/04/21 11:39 O2 Del Method 10/04/21 11:39 BMI result Body Mass Index 25.0 General: AO X 2, no acute distress Resp: Crackles bilateral, no accessory muscles used CVS: S1,S2,RRR GI: soft, non tender, non distended Neuro: motor grossly intact, alert Psych: appropriate affect, imapired insight Objective Data Active Medications Acetaminophen (Acetaminophen 325 Mg Tablet) 650 mg PO Q6H PRN PRN Reason: Pain, Mild (Pain Scale 1-3) Docusate Sodium (Docusate Sodium 100 Mg Capsule) 100 mg PO DAILY PRN PRN Reason: Constipation Enoxaparin Sodium (Enoxaparin Sodium 40 Mg/0.4 Ml Syringe) 40 mg SUBCUT Q24H [facility] Last Admin: 10/03/21 22:47 Dose: 40 mg Documented By: REMBERTO Piperacillin Sod/Tazobactam (Sod 3.375 gm/ Sodium Chloride) 50 mls @ 100 mls/hr IV Q6H [facility] Last Infusion: 10/04/21 10:05 Dose: 0 mls/hr Documented By: PILO Dextrose (D5w) 1,000 mls @ 80 mls/hr IVCONT .[id number] [facility] Ondansetron HCl (Ondansetron Hcl 4 Mg/2 Ml Vial) 4 mg IVPUSH Q8H PRN PRN Reason: Nausea and Vomiting Pharmacy Consult (Consult Rx Perform Med Rec) 1 each MISCELLANE ONCE PRN PRN Reason: Consult order Pharmacy Consult (Consult Rx Vancomycin Dosing) 1 each MISCELLANE DAILY PRN PRN Reason: Consult order Polyethylene Glycol (Polyethylene Glycol 3350 17 Gm Powd.Pack) 17 gm PO DAILY [facility] Last Admin: 10/04/21 09:20 Dose: Not Given Documented By: PILO Non-Admin Reason: Patient Refused Risperidone (Risperidone Oral Melanie 1 Mg/Ml Solution) 0.5 mg PO BID [facility] Last Admin: 10/04/21 09:10 Dose: 0.5 mg Documented By: ZAINORRDanish Sodium Chloride (0.9 % Sodium Chloride Flush 3 Ml Syringe) 3 ml IVFLUSH QSHIFT [facility] Last Admin: 10/04/21 09:10 Dose: 3 ml Documented By: ZAINORRDanish Valproic Acid (Valproic Acid (As Sodium Salt) 250 Mg/5 Ml Solution) 1,000 mg PO DAILY@1700 [facility] Last Admin: 10/03/21 18:08 Dose: Not Given Documented By: N-SOFFA Non-Admin Reason: Patient Refused Labs CBC & Chem 7: 10/04/21 10:25 10/04/21 10:25 Labs: Laboratory Results - last 24 hr 10/04/21 10/04/21 10:25 10:25 MCV 92.9 MCH 28.5 MCHC 30.7 L RDW 13.5 Plt Count 381 MPV 9.6 Absolute Nucleated RBC 0.000 Nucleated RBC % (auto) 0.0 Anion Gap 15 Estim Creat Clear Calc 79.9 Estimated GFR > 60 Fasting Glucose 186 H Calcium 9.5 Microbiology Microbiology Results: Microbiology 10/02/21 20:45 Blood Culture - Preliminary Blood - Venous Prelim: GPC Gram Stain only 10/02/21 20:45 Blood Culture - Preliminary Blood - Venous No growth after 24 hours. 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
--- NOTE | 2021-10-04 15:01 | MHC.CM.PN ---
CM spoke with Patient's Guardian/Raysa at listed # and addressed IMM with her(original will be mailed certified letter to her and a copy placed on the chart). Patient is a LTC Resident at [facility] and the goal is to return there at time of dc. CM has initiated and will follow for dc planning. Patient received Pfizer/Covid vax X4 and his PCP is Dr. Sharron Benton.
[2021-10-04 16:00] VITALS: BP 164/76; PULSE 110; RESP 18; TEMP 36.8; O2SAT 94
[2021-10-04] MEDS: Dextrose 5 % 1,000 ML 80 ML IVCONT (17:05)
--- NOTE | 2021-10-04 17:48 | MHC.SL.SWA ---
Speech Pathologist Impression: Oropharyngeal dysphagia Risk of Aspiration Due to: Neurological Condition History of Pneumonia Reduced Cognition Dysphasia Diet Status: No change Liquid Consistency and Strategies for Safe Swallow: Liquid Intake Recommendation: Thin Liquid Intake Strategies: Small Sips No Straws Solid Food Consistency: Dietary Recommendations: Grnd/Mech Altered (NDD2) Additional Modifications to Solid Foods: Recommend continue with GROUND/MECH ALTERED (NDD2) solids, THIN liquids, pills in liquid form when possible, otherwise crushed in puree. Continue 1:1 assistance, aspiration precautions. No changes made to diet order at this time. Sent [place] Message to , RN, RD w/ recommendations. SALES ANALYST will continue to follow. Oral Medication Intake: Crushed with Puree Please contact the pharmacy regarding appropriate crushable or liquid drug formulations that are available whenever modified delivery is recommended. Compensatory Strategies and Precautions to be Taken for Safe Swallow: Sitting Upright (90 deg) No Straw Liquids from Cup Liquids from Spoon Small Bites and Sips Alternate Liquids/Solids Rate of Ingestion Change Oral Check Avoid Specific Foods Supervision While Eating and Drinking for Safe Swallow: Total Assistance (1:1) Foods to Avoid: Tough difficult to chew solids, mixed consistencies Swallowing Recommended Treatments: Compens. Strategy Educat. Recommendation for Speech: Inpatient Speech Therapy Comment: SALES ANALYST will continue to follow. It Generalist Clinican/Clinical Fellow: No Supervisory Statement: I have reviewed and agree with the student/clinical fellow's documentation: N/A Speech Language Pathologist: Haley Gunn M.A., [facility]-SALES ANALYST
[2021-10-04 20:00] VITALS: BP 136/71; PULSE 98; RESP 18; TEMP 37.2; O2SAT 95
[2021-10-04] MEDS: Enoxaparin Sodium 40 MG/0.4 ML SYRINGE SUBCUT (23:18)
[2021-10-05] VITALS: BP 132/74; PULSE 95; RESP 16; TEMP 37.1; O2SAT 95
[2021-10-05] MEDS: Piperacillin Sodium/Tazobactam 3.375 GM in 0.9 % Sodium Chloride 50 ML IV ×2 (03:23→10:22)
[2021-10-05] MEDS: Dextrose 5 % 1,000 ML 80 ML IVCONT (03:24)
[2021-10-05 03:58] VITALS: BP 119/68; PULSE 87; RESP 16; TEMP 36.9; O2SAT 97
[2021-10-05 06:11] LABS: Hematocrit 36.7 % (42.0-52.0); Hemoglobin 11.6 g/dl (14.0-18.0); Mean Corpuscular HGB Conc 31.6 g/dl (31.0-36.0); Mean Corpuscular Hemoglobin 29.1 pg (27.0-33.0); Mean Corpuscular Volume 92.2 fL (80.0-98.0); Mean Platelet Volume 9.4 fL (9.4-12.4); Platelet Count 362 X10*3/uL (160-400); Red Blood Count 3.98 X10*6/uL (4.60-5.80); Red Cell Distribution Width 13.5 % (11.0-16.0); White Blood Count 5.7 X10*3/uL (4.8-10.8)
[2021-10-05 06:45] LABS: Anion Gap 13 (12-20); Blood Urea Nitrogen 21 mg/dL (9-16); Calcium 8.7 mg/dL (8.4-10.2); Carbon Dioxide 30 mmol/L (22-29); Chloride 107 mmol/L (96-108); Creatinine Clr Calc Pharmacy 90.5; Estimated Glomerular Filt Rate > 60; Glucose Fasting 130 mg/dL (60-99); Potassium 3.7 mmol/L (3.3-5.1); Sodium 146 mmol/L (135-145)
[2021-10-05 07:53] VITALS: BP 134/71; PULSE 78; RESP 20; TEMP 36.4; O2SAT 97
[2021-10-05] MEDS: 0.9 % Sodium Chloride Flush 3 ML SYRINGE IVFLUSH (10:16)
--- NOTE | 2021-10-05 11:44 | PM.DS ---
DS: Providers Provider Date of Service: 10/05/21 Date of admission: 10/02/21 23:54 Primary care physician: Sharron Benton MD DS: Diagnosis Discharge Diagnosis (1) Sepsis: Status: Acute DS: Summary Hospital Course Hospital Course: from initial hpi: Chief Complaint: weakness This is a 75-year-old male with past medical history of schizoaffective disorder, schizophrenia, dementia, bipolar disorder, history of anemia who was admitted to the hospital from 09/25-09/28 and treated for sepsis and hypoxia secondary to pneumonia, patient was discharged on cefuroxime and azithromycin.? He is sent back to the [facility] [place] [facility] with elevated heart rate and fever.? Patient has dementia at baseline and does not communicate well, is a poor historian and unable to give much history about his presentation. On arrival to the ED patient had a fever of 100.6, heart rate of 110, respiratory rate of 20, satting 92% on room air Labs are significant for WBC count of 7.7, hemoglobin of 13.1, hematocrit 40.6, BUN of 29, COVID-19 negative Chest x-ray shows?Bilateral opacities right greater than left may be consistent with infiltrates given the history. Pt being admitted for further management hospital course: Patient was admitted for sepsis due to aspiration pneumonia. He was not hypoxic. He was treated with IV Zosyn and sepsis resolved. He was seen by JOINT CUTTER MACHINE recommended NDD2 to solids with thin liquids and aspiration precautions. patient noted to have mild hypernatremia of 146, oral free fluid should be encouraged. For his mood disorder he will continue on risperidone and valproic acid. He will continue 7 more days of p.o. Augmentin on discharge. Time Spent with Patient Time attestation: Total time spent providing and/or coordinating discharge services: Discharge coordination time: Greater than 30 minutes Quality: Safe Use of Opioids Does Pt have an Active Cancer Diagnosis on the Problem List?: No Quality: Stroke Does the patient have a stroke diagnosis?: No Physical Exam Vital Signs: Vital Signs: Last Vital Signs Temp 97.5 F 10/05/21 07:53 Pulse 78 10/05/21 07:53 Resp 20 10/05/21 07:53 BP 134/71 10/05/21 07:53 Pulse Ox 97 10/05/21 07:53 O2 Del Method 10/05/21 07:53 BMI result Body Mass Index 25.0 General: AO X 2, no acute distress Resp: Crackles bilateral, no accessory muscles used CVS: S1,S2,RRR GI: soft, non tender, non distended Neuro: motor grossly intact, alert Psych: appropriate affect, imapired insight DS: Data Data Completed and Pending Labs on day of discharge: Laboratory Results - last 24 hr 10/05/21 10/05/21 05:48 05:48 WBC 5.7 RBC 3.98 L Hgb 11.6 L Hct 36.7 L MCV 92.2 MCH 29.1 MCHC 31.6 RDW 13.5 Plt Count 362 MPV 9.4 Absolute Nucleated RBC 0.000 Nucleated RBC % (auto) 0.0 Sodium 146 H Potassium 3.7 Chloride 107 Carbon Dioxide 30 H Anion Gap 13 BUN 21 H Creatinine 0.75 Estim Creat Clear Calc 90.5 Estimated GFR > 60 Fasting Glucose 130 H Calcium 8.7 D Preliminary micro results at discharge 10/02/21 20:45 Blood Culture - Preliminary Blood - Venous No growth after 48 hours. Discharge Plan Discharge Patient Disposition: Xfer [facility] Discharge Diagnosis: aspiration pneumonia Referrals: Sharron Benton MD [Primary Care Provider] - 1 Week Discharge Medications: New amoxicillin-pot clavulanate 875-125 mg tablet 1 tab PO BID Qty: 14 0RF Continued polyethylene glycol 3350 17 gram Powder In Packet 17 g PO DAILY risperidone 1 mg/mL Solution 0.5 mg PO BID Risperdal Consta 50 mg/2 mL Suspension,Extended Rel Recon 50 mg IM Q14D valproic acid (as sodium salt) 250 mg/5 mL (5 mL) Solution 1,000 mg PO DAILY@1700 Acidophilus Tablet,Chewable 1 tab PO BID Discontinued azithromycin 250 mg Tablet 250 mg PO DAILY Rx Instructions: start on day 2 of therapy cefuroxime axetil 500 mg Tablet 500 mg PO BID Discharge Orders: Discharge Order (Routine); Ordered 10/05/21 Ordered By: Tripp Culver Diet: other Activity on Discharge: As tolerated Stand Alone Forms: Patient Portal Discharge page Care Plan Goals: avoid aspiratoin Health Concerns: dysphagia, aspiration Plan of Treatment: augmentin 7 more days, ?Recommend continue with GROUND/MECH ALTERED (NDD2) solids, THIN liquids, pills in liquid form when possible, otherwise crushed in puree. Continue 1:1 assistance, aspiration precautions Assessment: see above
[2021-10-05 12:00] VITALS: BP 147/69; PULSE 87; RESP 20; TEMP 36.9; O2SAT 95
--- NOTE | 2021-10-05 13:03 | MHC.CM.PN ---
IMM 10/05/21 Male 75 DX PNA. Patient is discharged today. He will return to [facility] via BLS. Transportation is booked for 15:00, [facility] will provide transportation. DC info has been sent. Covid test is pending.
[2021-10-05 13:58] LABS: COVID-19 Test Negative (Negative); IDNOW Serial# 55D5AD1C
== END 2021-10-05 16:10 | disposition skilled nursing facility (03) | DRG 872 ==
LOC: HO.ED 22:07 → HO.EDOVER 10-03 00:35 → HO.IMC 10-03 23:00
PROVIDERS: Admitting Provider Internal Medicine; Emergency Provider Emergency Medicine; PCP Internal Medicine; Visit Provider Internal Medicine
DX: A41.9 Sepsis, unspecified organism (principal); F31.9 Bipolar disorder, unspecified; F03.90 Unspecified dementia, unspecified severity, without behavioral disturbance, psychotic disturbance, mood disturbance, and anxiety; E86.0 Dehydration; Z20.822 Contact with and (suspected) exposure to COVID-19; Z88.8 Allergy status to other drugs, medicaments and biological substances; Z87.01 Personal history of pneumonia (recurrent); Z79.899 Other long term (current) drug therapy
CPT/HCPCS: 36415; 71045; 80048; 80076; 83605; 83735; 83880; 84484; 85025; 85027; 87040; 87147; 87205; 87635; 92610; 93005; 96361; 96365; 96366; 96375; 99285; J1650; J2543; J3370

== ENCOUNTER 2021-10-25 12:38 | Inpatient (IN) | payer MEDICARE, MEDICAID, SELFPAY ==
--- NOTE | ~2021-10-25 | MR_ITS ---
EXAMINATION: MRI BRAIN WITHOUT CONTRAST CLINICAL INFORMATION: Question stroke. COMPARISON: CT angiogram of the head and neck 10/25/2021. TECHNIQUE: Multiplanar MR imaging of the brain was performed without contrast. FINDINGS: There is gliosis and encephalomalacia involving the left frontal operculum and left temporal lobe consistent with chronic changes of an old infarct within the vascular territory of the left middle cerebral artery. Numerous foci of T2 FLAIR signal hyperintense are also visualized within the periventricular white matter that most likely represent a chronic manifestation of small vessel ischemia. No acute territorial infarct. There is a small focus of magnetic susceptibility artifact located within the subcortical white matter of the right parietal lobe and the left frontal operculum that most likely represent chronic microhemorrhages. The vascular flow void within the right transverse and sigmoid sinus is absent. Correlation with the recent CT angiogram of the head reveals that there has been recanalization of a chronic thrombosis which provides an explanation for this finding. There is no mastoid or middle ear effusion. Mild paranasal sinus mucosal thickening within ethmoid air cells. Globes and orbits are symmetric. MR/MR head/brain wo con IMPRESSION: The vascular flow void within the right transverse and sigmoid sinus is absent. Correlation with the recent CT angiogram reveals that there has been recanalization of a chronic thrombosis. There is a chronic cortical infarct within the vascular territory of left middle cerebral artery and scattered chronic small vessel ischemic changes primarily involving the periventricular white matter. No evidence of acute territorial infarct or hemorrhage.
--- NOTE | ~2021-10-25 | CT_ITS ---
EXAMINATION: CT angio head neck stroke CLINICAL INFORMATION: Left mouth droop. Aphasia. COMPARISON: CT scan of the head 10/25/2021, 09/26/2021. TECHNIQUE: Machine Ii Coremaker images were obtained. A CT angiogram of the head and neck was performed in the arterial phase after the intravenous administration of 50 mL Omnipaque 350. Pre and delayed postcontrast images of the head were also obtained. MIP reconstructions were generated in multiple orientations at the acquisition workstation. Multiple three-dimensional surface rendered images and maximum intensity projection images were generated on a dedicated 3-D lab workstation. Arterial stenoses are measured in accordance with NASCET criteria or similar method if applicable. This CT examination was performed using dose optimization techniques as appropriate, including one or more of the following: Automated exposure control, iterative reconstruction, and adjustment of technique factors (mA and/or kVp) according to patient size (this includes techniques or standardized protocols for targeted exams where dose is matched to indication/reason for exam). Total exam dose-length product 1344 mGy-cm FINDINGS: Head: There are small foci of gliosis and encephalomalacia involving the left frontal operculum and left superior temporal gyrus. Scattered nonspecific foci of hypoattenuation are also visualized within the periventricular white matter that most likely represent a chronic manifestation of small vessel ischemia. Postcontrast images reveal no abnormal intracranial mass or enhancement. There is no intracranial mass effect or midline shift. Lateral and third ventricles are prominent and there is proportionate prominence of the subarachnoid spaces reflecting loss of parenchymal volume. The calvarium and skull base are intact. Mastoid air cells and middle ear cavities are well aerated. No active paranasal sinus disease. CT angiogram neck: The aortic arch apex is excluded from the [id number] of this examination. The major aortic branches are widely patent. In the common carotid arteries and carotid bifurcations are normal. The left vertebral artery is occluded at its origin and there is reconstitution of contrast filling the V2 segment of the left vertebral artery. The dominant right vertebral artery is widely patent. CT angiogram head: Intracranial internal carotid arteries are patent. There is focal high-grade stenosis involving the intradural segment left vertebral artery. The right intradural vertebral artery is patent and continues as the basilar artery which is normal. Anterior, middle, and posterior cerebral artery complexes are normal. No intracranial large vessel occlusion. Other: There is a heterogeneously enhancing nodule at the lower pole of the left thyroid lobe. Soft tissues of the neck are otherwise unremarkable. Grossly no pathologically enlarged cervical lymph nodes. CT/CT angio head neck stroke IMPRESSION: The left vertebral artery is occluded at its origin and there is partial reconstitution of contrast filling the P2 segment of left vertebral artery. There is also a high-grade tandem stenosis within the intradural segment left vertebral artery. Otherwise unremarkable examination in that there is no stenosis of the cervical carotid arteries. The dominant right vertebral artery is widely patent and continues as the basilar. No intracranial or vessel occlusion. 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 No evidence of acute territorial infarct or hemorrhage. There is however loss of parenchymal loss and and numerous chronic small vessel ischemic changes within the periventricular white matter. No abnormal intracranial mass or enhancement. This critical result was discussed with Ivon CR at 1:23 PM on 10/25/2021 and it was ascertained that the content and urgency of the report was understood at the time of direct communication.
--- NOTE | ~2021-10-25 | CT_ITS ---
EXAMINATION: CT HEAD WITHOUT CONTRAST (STROKE PROTOCOL) CLINICAL INFORMATION: Stroke protocol. Aphasia, left mouth droop. Similar findings reported previously. COMPARISON: CT had 09/26/2021 TECHNIQUE: Contiguous axial imaging was performed from the skull base to vertex without intravenous administration of contrast. Additional 2-D coronal and sagittal reformatted images are generated on the CT workstation and uploaded to PACS. This CT examination was performed using dose optimization techniques as appropriate, variously including the following: *Automated exposure control *Adjustment of mA and/or kV according to patient size (this includes techniques or standardized protocols for targeted exams where dose is matched to indication/reason for exam; i.e. extremities or head) *Use of iterative reconstruction technique DLP: 618 mGy-cm FINDINGS: There is no intracranial hemorrhage, hematoma, or extra-axial fluid collection. There is generalized atrophy with prominent ventricular dilatation prominent cortical sulci and fissures and cisterns similar to prior exam. There are periventricular white matter hypodensities similar to prior exam consistent with chronic small vessel ischemic changes. Alfaro-white matter differentiation is preserved. No dense vessel sign. No mass effect or edema. There is no visible acute territorial infarct or mass lesion. The calvarium appears intact. There is no pneumocephalus or orbital emphysema. The visualized sinuses and middle ears and mastoid air cells show no significant mucosal thickening. There are no air-fluid levels. Results called and discussed with Dr. Ballard in the emergency department at [address]/CT head for stroke IMPRESSION: -No intracranial hemorrhage, edema, or acute territorial infarct. -Prominent atrophic changes similar to prior exam.
--- NOTE | 2021-10-25 12:53 | ED.NEUROSD ---
HPI - Neuro Symptoms/Deficit General Chief Complaint: Altered Mental Status Stated Complaint: STROKE ALERT,LKWT 9AM,L DROOP/WEAK,UNK THIN Time Seen by Provider: 10/25/21 12:47 Source: EMS Mode of arrival: EMS Limitations: other History of Present Illness HPI Narrative: Patient comes to the emergency room via EMS for stroke-like symptoms. Patient was last seen normal at 09:00, almost 4 hours ago. According to EMS, the staff found the patient at 12:10 with left-sided mouth drooping, patient not following commands, less interactive than usual. On arrival to the emergency room, patient is mute, not following directions. However, patient was admitted on October 02, based on the H and P, patient was not following directions, not talking, difficult to assess. Related Data Home Medications Medication Instructions Recorded Confirmed polyethylene glycol 3350 17 gram 17 g PO DAILY 09/16/21 10/02/21 oral powder packet risperidone 1 mg/mL oral solution 0.5 mg PO BID 09/16/21 10/02/21 risperidone microspheres 50 mg/2 50 mg IM Q14D 09/16/21 10/02/21 mL intramuscular susp,ext release (Risperdal Consta) valproic acid (as sodium salt) 250 1,000 mg PO DAILY@1700 09/16/21 10/02/21 mg/5 mL (5 mL) oral solution Lactobacillus acidophilus 1 tab PO BID 10/03/21 10/03/21 (Acidophilus chewable tablet) Previous Rx's Medication Instructions Recorded amoxicillin 875 mg-potassium 1 tab PO BID #14 tabs 10/05/21 clavulanate 125 mg tablet Allergies Allergy/AdvReac Type Severity Reaction Status Date / Time haloperidol [From Haldol] Allergy Unknown Verified 09/22/21 17:10 Review of Systems Review of Systems: Yes Unobtainable due to mental condition PMFSH Past Medical History Medical History Anemia Bipolar 1 disorder Dementia Dysphagia Encephalopathy Hypoxia Mucus plugging of bronchi Psychosis Schizoaffective disorder Schizophrenia Sepsis Social History Social History Household Members: Unknown / Unable to assess Housing: Unknown / Unable to assess Do you presently have visiting nurse or other home services: No Unable to assess alcohol history related to: Unknown Patient Tobacco Use Status: Tobacco use Unknown Advance Directives: No Advance Directives Information Provided: No service: No Current occupational status: disabled Physical Exam Vital Signs: Vital Signs: Last Vital Signs Temp 96.9 F 10/25/21 14:31 Pulse 95 10/25/21 14:31 Resp 16 10/25/21 14:31 BP 111/67 10/25/21 14:31 Pulse Ox 95 10/25/21 14:31 O2 Del Method 10/25/21 14:31 BMI result Body Mass Index 24.1 Const: Other: Appearance: Alert. Does not seem in any acute distress, not talking, not following directions, unable to obtain any history from the patient Eyes: Pupils equal, round and reactive to light. ENT: Pharynx normal, missing teeth, seems to have a bit of bloody discharge in the tongue Neck: Normal inspection. Neck supple. No lymph nodes noted. No crepitus CVS: Normal heart rate and rhythm. Pulses normal. Normal S1 and S2 Respiratory: No respiratory distress. Breath sounds normal. No Wheezing. No rales Abdomen: Soft and nontender. No rigidity. No distention. Skin: Skin warm and dry. Normal skin color. Normal skin turgor. Extremities: No lower extremity edema. No Lacerations. No Rash Neuro: Unable to participate in cranial nerve assessment. The patient seems to be moving all extremities, unable to follow directions, patient does have left-sided mouth drooping Psych: calm Course Course Course Narrative: CT scan does not show hemorrhage, patient does have severe atrophy, dilated ventricles. CTA pending. Chen from the stroke team is at bedside, CTA pending. Unclear what symptoms are new versus old, the mouth drooping is new according to the care home. I discussed the patient with the neurology team, at this time, patient is not a candidate for tPA. Also,given the patient's past medical history and current conditions, patient may not benefit from tPA, the risks outweigh the benefits. We are waiting for the CTA. Reviewing patient's medical chart, patient has history of seizures, it is possible that patient may had a seizure and he may be postictal. Labs are pending. At this time, patient is talking again. Occasionally answering questions. Patient's sodium is 160, patient being given D5W IV. Also, patient received full-dose aspirin. Patient being admitted. [facility] Neuro Symptoms/Deficit Lab Data Result diagrams: 10/25/21 15:48 10/25/21 15:48 Labs: Lab Results 10/25/21 10/25/21 10/25/21 Range/Units 15:48 15:48 15:48 WBC 8.6 (4.8-10.8) X10*3/uL RBC 4.48 L (4.60-5.80) X10*6/uL Hgb 12.9 L (14.0-18.0) g/dl Hct 43.1 (42.0-52.0) % MCV 96.2 (80.0-98.0) fL MCH 28.8 (27.0-33.0) pg MCHC 29.9 L (31.0-36.0) g/dl RDW 14.6 (11.0-16.0) % Plt Count 291 (160-400) X10*3/uL MPV 10.9 (9.4-12.4) fL Immature Gran % (Auto) 0.4 (0.0-0.4) % Neut % (Auto) 80.1 H (45-73) % Lymph % (Auto) 14.4 L (20-40) % [place] % (Auto) 4.7 (2-11) % Eos % (Auto) 0.2 (0-4) % Baso % (Auto) 0.2 (0-2) % Lymph # (Auto) 1.2 (1.2-4.9) X10*3/uL [place] # (Auto) 0.4 (0.1-1.2) X10*3/uL Eos # (Auto) 0.0 (0.0-0.4) X10*3/uL Baso # (Auto) 0.0 (0.0-0.2) X10*3/uL Abs Immat Gran (auto) 0.03 (0.00-0.03) X10*3/uL Absolute Neuts (auto) 6.9 (2.0-8.3) x10*3/uL Absolute Nucleated RBC 0.000 (0.0-0.012) X10*3/uL Nucleated RBC % (auto) 0.0 (0.0-0.2) /100WBC PT (10.0-13.1) SEC INR (0.9-1.1) Sodium 160 H* (135-145) mmol/L Potassium 4.5 D (3.3-5.1) mmol/L Chloride 117 H (96-108) mmol/L Carbon Dioxide 33 H (22-29) mmol/L Anion Gap 15 (12-20) BUN 42 H D (9-16) mg/dL Creatinine 0.80 (0.5-1.4) mg/dL Estim Creat Clear Calc 84.9 Estimated GFR > 60 Random Glucose 132 H (60-115) mg/dL Lactic Acid (0.5-2.0) mmol/L Calcium 9.4 D (8.4-10.2) mg/dL Magnesium 3.0 H (1.6-2.6) mg/dL Total Bilirubin 1.2 H (0.0-1.0) mg/dL Direct Bilirubin 0.7 H (0.0-0.5) mg/dL AST 77 H (5-37) U/L ALT 112 H (0-40) U/L Alkaline Phosphatase 174 H D (39-117) U/L Troponin I High Sens 5.5 (<3.5-35.0) ng/L Total Protein 7.9 (6.5-8.0) g/dL Albumin 3.8 (3.5-5.0) g/dL COVID-19 (JEFF) (Negative) COVID-19 Clin Com 10/25/21 10/25/21 10/25/21 Range/Units 15:48 15:48 15:48 WBC (4.8-10.8) X10*3/uL RBC (4.60-5.80) X10*6/uL Hgb (14.0-18.0) g/dl Hct (42.0-52.0) % MCV (80.0-98.0) fL MCH (27.0-33.0) pg MCHC (31.0-36.0) g/dl RDW (11.0-16.0) % Plt Count (160-400) X10*3/uL MPV (9.4-12.4) fL Immature Gran % (Auto) (0.0-0.4) % Neut % (Auto) (45-73) % Lymph % (Auto) (20-40) % [place] % (Auto) (2-11) % Eos % (Auto) (0-4) % Baso % (Auto) (0-2) % Lymph # (Auto) (1.2-4.9) X10*3/uL [place] # (Auto) (0.1-1.2) X10*3/uL Eos # (Auto) (0.0-0.4) X10*3/uL Baso # (Auto) (0.0-0.2) X10*3/uL Abs Immat Gran (auto) (0.00-0.03) X10*3/uL Absolute Neuts (auto) (2.0-8.3) x10*3/uL Absolute Nucleated RBC (0.0-0.012) X10*3/uL Nucleated RBC % (auto) (0.0-0.2) /100WBC PT 16.3 H (10.0-13.1) SEC INR 1.4 H (0.9-1.1) Sodium (135-145) mmol/L Potassium (3.3-5.1) mmol/L Chloride (96-108) mmol/L Carbon Dioxide (22-29) mmol/L Anion Gap (12-20) BUN (9-16) mg/dL Creatinine (0.5-1.4) mg/dL Estim Creat Clear Calc Estimated GFR Random Glucose (60-115) mg/dL Lactic Acid 1.6 (0.5-2.0) mmol/L Calcium (8.4-10.2) mg/dL Magnesium (1.6-2.6) mg/dL Total Bilirubin (0.0-1.0) mg/dL Direct Bilirubin (0.0-0.5) mg/dL AST (5-37) U/L ALT (0-40) U/L Alkaline Phosphatase (39-117) U/L Troponin I High Sens (<3.5-35.0) ng/L Total Protein (6.5-8.0) g/dL Albumin (3.5-5.0) g/dL COVID-19 (JEFF) Negative (Negative) COVID-19 Clin Com See Note Imaging Data Head and neck CT and CTA: Radiologist's impression: FINDINGS: Head: There are small foci of gliosis and encephalomalacia involving the left frontal operculum and left superior temporal gyrus. Scattered nonspecific foci of hypoattenuation are also visualized within the periventricular white matter that most likely represent a chronic manifestation of small vessel ischemia. Postcontrast images reveal no abnormal intracranial mass or enhancement. There is no intracranial mass effect or midline shift. Lateral and third ventricles are prominent and there is proportionate prominence of the subarachnoid spaces reflecting loss of parenchymal volume. The calvarium and skull base are intact. Mastoid air cells and middle ear cavities are well aerated. No active paranasal sinus disease. CT angiogram neck: The aortic arch apex is excluded from the [id number] of this examination. The major aortic branches are widely patent. In the common carotid arteries and carotid bifurcations are normal. The left vertebral artery is occluded at its origin and there is reconstitution of contrast filling the V2 segment of the left vertebral artery. The dominant right vertebral artery is widely patent. CT angiogram head: Intracranial internal carotid arteries are patent. There is focal high-grade stenosis involving the intradural segment left vertebral artery. The right intradural vertebral artery is patent and continues as the basilar artery which is normal. Anterior, middle, and posterior cerebral artery complexes are normal. No intracranial large vessel occlusion. Other: There is a heterogeneously enhancing nodule at the lower pole of the left thyroid lobe. Soft tissues of the neck are otherwise unremarkable. Grossly no pathologically enlarged cervical lymph nodes. CT/CT angio head? neck stroke IMPRESSION: The left vertebral artery is occluded at its origin and there is partial reconstitution of contrast filling the P2 segment of left vertebral artery. There is also a high-grade tandem stenosis within the intradural segment left vertebral artery. Otherwise unremarkable examination in that there is no stenosis of the cervical carotid arteries. The dominant right vertebral artery is widely patent and continues as the basilar. No intracranial or vessel occlusion. 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 No evidence of acute territorial infarct or hemorrhage. There is however loss of parenchymal loss and and numerous chronic small vessel ischemic changes within the periventricular white matter. No abnormal intracranial mass or enhancement. NIH Stroke Scale Level of Consciousness: Alert Level of Consciousness Questions: Answers neither question correctly Level of Consciousness Commands: Performs neither task correctly Best Gaze: Normal Visual: No visual loss Facial Palsy: Partial paralysis Motor Arm (Right): Some effort against gravity Motor Arm (Left): Some effort against gravity Motor Leg (Right): Some effort against gravity Motor Leg (Left): Some effort against gravity Limb Ataxia: Absent Sensory: Normal Best Language: Mute, global aphasia Dysarthia: Severe dysarthria Extinction and Inattention: No abnormality Score: 19 Critical Care Time Critical Care Time Critical Care Time: Yes Total Critical Care Time: 35 Attestation: I have personally provided critical care time. Time includes review of lab data, radiology results, discussion with consultants, and monitoring for potential decompensation. Intervention performed as documented. Discharge Plan Discharge Clinical Impression: Acute hypernatremia, Brain TIA Prescriptions: No Action polyethylene glycol 3350 17 gram Powder In Packet 17 g PO DAILY risperidone 1 mg/mL Solution 0.5 mg PO BID Risperdal Consta 50 mg/2 mL Suspension,Extended Rel Recon 50 mg IM Q14D valproic acid (as sodium salt) 250 mg/5 mL (5 mL) Solution 1,000 mg PO DAILY@1700 Acidophilus Tablet,Chewable 1 tab PO BID amoxicillin-pot clavulanate 875-125 mg tablet 1 tab PO BID Qty: 14 0RF
--- NOTE | 2021-10-25 13:15 | ECG_ITS ---
Test Reason : ALTERED MENTAL STATUS Blood Pressure : / mmHG Vent. Rate : 101 BPM Atrial Rate : 101 BPM P-R Int : 118 ms QRS Dur : 090 ms QT Int : 338 ms P-R-T Axes : 076 047 063 degrees QTc Int : 438 ms Sinus tachycardia Nonspecific T wave abnormality Abnormal ECG When compared with ECG of 02-OCT-2021 21:38, Nonspecific T wave abnormality no longer evident in Inferior leads Referred By: Ivon Ballard Electronically Signed By:Hong Owens
[2021-10-25 14:31] VITALS: BP 111/67; PULSE 95; RESP 16; TEMP 36.1; O2SAT 95; BMI 24.1
[2021-10-25 15:59] LABS: MANUAL DIFF FLAG NO
[2021-10-25 16:02] LABS: Basophils Percent Auto 0.2 % (0-2); Eosinophils Percent Auto 0.2 % (0-4); Hematocrit 43.1 % (42.0-52.0); Hemoglobin 12.9 g/dl (14.0-18.0); Imm Gran Abs Auto 0.03 X10*3/uL (0.00-0.03); Imm Gran Pct Auto 0.4 % (0.0-0.4); Lymphocytes Absolute Auto 1.2 X10*3/uL (1.2-4.9); Lymphocytes Percent Auto 14.4 % (20-40); Mean Corpuscular HGB Conc 29.9 g/dl (31.0-36.0); Mean Corpuscular Hemoglobin 28.8 pg (27.0-33.0); Mean Corpuscular Volume 96.2 fL (80.0-98.0); Mean Platelet Volume 10.9 fL (9.4-12.4); Monocytes Absolute Auto 0.4 X10*3/uL (0.1-1.2); Monocytes Percent Auto 4.7 % (2-11); Neutrophils Absolute Auto 6.9 x10*3/uL (2.0-8.3); Neutrophils Percent Auto 80.1 % (45-73); Platelet Count 291 X10*3/uL (160-400); Red Blood Count 4.48 X10*6/uL (4.60-5.80); Red Cell Distribution Width 14.6 % (11.0-16.0); White Blood Count 8.6 X10*3/uL (4.8-10.8)
[2021-10-25 16:07] LABS: INTERNATIONAL NORM RATIO 1.4 (0.9-1.1); Prothrombin Time 16.3 SEC (10.0-13.1)
[2021-10-25 16:14] LABS: Lactic Acid 1.6 mmol/L (0.5-2.0)
[2021-10-25 16:19] LABS: Troponin-I High Sensitivity 5.5 ng/L (<3.5-35.0)
[2021-10-25 16:21] LABS: COVID-19 Test Negative (Negative)
[2021-10-25 16:23] LABS: Alanine Aminotransferase 112 U/L (0-40); Albumin Level 3.8 g/dL (3.5-5.0); Alkaline Phosphatase 174 U/L (39-117); Anion Gap 15 (12-20); Aspartate Amino Transferase 77 U/L (5-37); Bilirubin Direct 0.7 mg/dL (0.0-0.5); Bilirubin Total 1.2 mg/dL (0.0-1.0); Blood Urea Nitrogen 42 mg/dL (9-16); Calcium 9.4 mg/dL (8.4-10.2); Carbon Dioxide 33 mmol/L (22-29); Chloride 117 mmol/L (96-108); Creatinine Clr Calc Pharmacy 84.9; Estimated Glomerular Filt Rate > 60; Glucose Random 132 mg/dL (60-115); Potassium 4.5 mmol/L (3.3-5.1); Sodium 160 mmol/L (135-145); Total Protein 7.9 g/dL (6.5-8.0)
--- NOTE | 2021-10-25 16:56 | P.HPHOSP_ITS ---
History of Present Illness Date of Service: 10/25/21 Chief Complaint: Nonverbal 75 year old man from [facility] presenting with stroke-like symptoms.? Patient was last seen normal at 0900. ? Staff found the patient at 12:10 with left-sided mouth drooping, patient not following commands, less interactive than usual.? On arrival to the emergency room, patient is mute, not following directions, seems mostly at baseline. He was able to say that he did not have any pain and stated that he had a stroke in the past. In the ER head CT was negative for intracranial hemorrhage, edema or acute infarction, head CTA showed left vertebral artery occlusion with high-grade tandem stenosis within the intradural segment of the left vertebral artery. He had remained hemodynamically stable. Sodium was noted to be elevated at 160, total bilirubin 1.2. He was given a dose of aspirin in the ER. Will be admitted for further management and treatment of acute stroke Review of Systems Review of Systems: Constitutional: Comments: Unable to obtain due to patient's mental status he is unaccompanied [facility] Medical History (Updated 10/25/21 @ 18:03 by Shanelle Davis NP) Anemia Bipolar 1 disorder Dementia Dysphagia Encephalopathy Hypoxia Mucus plugging of bronchi Psychosis Schizoaffective disorder Schizophrenia Sepsis Stroke Pertinent family history: Unable to obtain due to patient's mental status Social History Household Members: Unknown / Unable to assess Housing: Unknown / Unable to assess Do you presently have visiting nurse or other home services: No Unable to assess alcohol history related to: Unknown Patient Tobacco Use Status: Tobacco use Unknown Advance Directives: No Advance Directives Information Provided: No service: No Current occupational status: disabled Meds Allergies Allergy/AdvReac Type Severity Reaction Status Date / Time haloperidol [From Haldol] Allergy Unknown Verified 09/22/21 17:10 Active Medications: Current Medications Acetaminophen (Acetaminophen 325 Mg Tablet) 650 mg PO Q6H PRN PRN Reason: Pain, Mild (Pain Scale 1-3) Dextrose (D5w) 1,000 mls @ 100 mls/hr IVCONT .Q10H HORACIO Ondansetron HCl (Ondansetron Hcl 4 Mg/2 Ml Vial) 4 mg IVPUSH Q8H PRN PRN Reason: Nausea and Vomiting Pharmacy Consult (Consult Rx Perform Med Rec) 1 each MISCELLANE ONCE PRN PRN Reason: Consult order Sodium Chloride (0.9 % Sodium Chloride Flush 3 Ml Syringe) 3 ml IVFLUSH QSHIFT [facility] Home Medications Medication Instructions Recorded Confirmed Last Taken Type polyethylene glycol 3350 17 gram 17 g PO DAILY 09/16/21 10/25/21 10/25/21 History oral powder packet risperidone 1 mg/mL oral solution 0.5 mg PO DAILY@1700 09/16/21 10/25/21 10/24/21 History risperidone microspheres 50 mg/2 50 mg IM Q14D 09/16/21 10/25/21 10/14/21 History mL intramuscular susp,ext release (Risperdal Consta) valproic acid (as sodium salt) 250 1,000 mg PO DAILY@1700 09/16/21 10/25/21 10/24/21 History mg/5 mL (5 mL) oral solution Physical Exam Vital Signs and Narrative: Vital Signs: Last Vital Signs Temp 96.9 F 10/25/21 14:31 Pulse 95 10/25/21 14:31 Resp 16 10/25/21 14:31 BP 111/67 10/25/21 14:31 Pulse Ox 95 10/25/21 14:31 O2 Del Method 10/25/21 14:31 BMI result Body Mass Index 24.1 Appearing in no acute distress head is normocephalic atraumatic eyes pupils are PERRLA sclera is anicteric mouth throat mucous membranes are intact and moist lung sounds are clear to auscultation heart regular rate rhythm, clear S1, S2 positive bowel sounds, abdomen is soft, nontender neuro patient is alert Left-sided hemiparesis, likely from old stroke Results Labs CBC and Chem 7: 10/25/21 15:48 10/25/21 15:48 Labs: Laboratory Results - last 24 hr 10/25/21 10/25/21 10/25/21 15:48 15:48 15:48 MCV 96.2 MCH 28.8 MCHC 29.9 L RDW 14.6 Plt Count 291 MPV 10.9 Immature Gran % (Auto) 0.4 Neut % (Auto) 80.1 H Lymph % (Auto) 14.[address] [place] % (Auto) 4.7 Eos % (Auto) 0.2 Baso % (Auto) 0.2 Lymph # (Auto) 1.2 [place] # (Auto) 0.4 Eos # (Auto) 0.0 Baso # (Auto) 0.0 Abs Immat Gran (auto) 0.03 Absolute Neuts (auto) 6.9 Absolute Nucleated RBC 0.000 Nucleated RBC % (auto) 0.0 PT INR Anion Gap 15 Estim Creat Clear Calc 84.9 Estimated GFR > 60 Random Glucose 132 H Lactic Acid Calcium 9.4 D Magnesium 3.0 H Total Bilirubin 1.2 H Direct Bilirubin 0.7 H AST 77 H ALT 112 H Alkaline Phosphatase 174 H D Troponin I High Sens 5.5 Total Protein 7.9 Albumin 3.8 COVID-19 (JEFF) COVID-19 Clin Com 10/25/21 10/25/21 10/25/21 15:48 15:48 15:48 MCV MCH MCHC RDW Plt Count MPV Immature Gran % (Auto) Neut % (Auto) Lymph % (Auto) [place] % (Auto) Eos % (Auto) Baso % (Auto) Lymph # (Auto) [place] # (Auto) Eos # (Auto) Baso # (Auto) Abs Immat Gran (auto) Absolute Neuts (auto) Absolute Nucleated RBC Nucleated RBC % (auto) PT 16.3 H INR 1.4 H Anion Gap Estim Creat Clear Calc Estimated GFR Random Glucose Lactic Acid 1.6 Calcium Magnesium Total Bilirubin Direct Bilirubin AST ALT Alkaline Phosphatase Troponin I High Sens Total Protein Albumin COVID-19 (JEFF) Negative COVID-19 Clin Com See Note Imaging Radiologist's Impressions: Impressions Head CT 10/25/21 12:50 IMPRESSION: -No intracranial hemorrhage, edema, or acute territorial infarct. -Prominent atrophic changes similar to prior exam. Head/Neck CTA 10/25/21 12:50 IMPRESSION: The left vertebral artery is occluded at its origin and there is partial reconstitution of contrast filling the P2 segment of left vertebral artery. There is also a high-grade tandem stenosis within the intradural segment left vertebral artery. Otherwise unremarkable examination in that there is no stenosis of the cervical carotid arteries. The dominant right vertebral artery is widely patent and continues as the basilar. No intracranial or vessel occlusion. 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 No evidence of acute territorial infarct or hemorrhage. There is however loss of parenchymal loss and and numerous chronic small vessel ischemic changes within the periventricular white matter. No abnormal intracranial mass or enhancement. This critical result was discussed with Ivon CR at 1:23 PM on 10/25/2021 and it was ascertained that the content and urgency of the report was understood at the time of direct communication. Assessment and Plan (1) Stroke: Status: Acute Plan 75 year old man admitted with possible stroke Stroke Head CTA/CT neg Neurology consult pending echo telemetry monitoring PT/OT asa, statin Hypernatremia Likely secondary to dehydration Continue D5W Check sodium every 4hrs Transaminitis Unknown etiology at this time Will follow LFTs closely mental health continue home medications DVT prophylaxis with SCD boots Attending Dr. Wisdom Full code 2 night admission likely for workup of acute stroke Quality Stroke Does the patient have a stroke diagnosis?: No VTE Prior VTE?: No VTE Risk Level:: Medical - moderate - high VTE Device Contraindication: N/A - Device Ordered VTE Drug Contraindication: Treatment Not Indicated
[2021-10-25] MEDS: Dextrose 5 % 1,000 ML 100 ML IVCONT (17:30)
--- NOTE | 2021-10-25 17:32 | PHA.MEDREC ---
MED REC COMPLETE, NO ISSUES Pharmacy Consult ? Medication Reconciliation Pharmacy has completed the medication reconciliation.
[2021-10-25] MEDS: Aspirin Enteric Coated 325 MG TABLET.DR PO (17:33)
[2021-10-25 20:27] LABS: Sodium 158 mmol/L (135-145)
--- NOTE | 2021-10-25 23:08 | PC.NURSE ---
Pt unable to swallow med. Med not given.
[2021-10-25 23:24] VITALS: BP 107/73; PULSE 89; RESP 22; O2SAT 95
[2021-10-26] VITALS (10 sets, daily range): BP systolic 94–126; BP diastolic 58–76; PULSE 75–103; RESP 15–22; TEMP 35.8–36.6; O2SAT 95–100
[2021-10-26 00:43] LABS: Sodium 156 mmol/L (135-145)
[2021-10-26] MEDS: Dextrose 5 % 1,000 ML 100 ML IVCONT ×2 (04:33→16:33)
[2021-10-26 04:40] LABS: Basophils Percent Auto 0.2 % (0-2); Eosinophils Absolute Auto 0.1 X10*3/uL (0.0-0.4); Hematocrit 41.5 % (42.0-52.0); Hemoglobin 12.5 g/dl (14.0-18.0); Imm Gran Abs Auto 0.04 X10*3/uL (0.00-0.03); Imm Gran Pct Auto 0.7 % (0.0-0.4); MANUAL DIFF FLAG NO; Mean Corpuscular HGB Conc 30.1 g/dl (31.0-36.0); Mean Corpuscular Hemoglobin 28.9 pg (27.0-33.0); Mean Corpuscular Volume 96.1 fL (80.0-98.0); Mean Platelet Volume 10.8 fL (9.4-12.4); Monocytes Absolute Auto 0.4 X10*3/uL (0.1-1.2); Monocytes Percent Auto 5.7 % (2-11); Neutrophils Absolute Auto 4.7 x10*3/uL (2.0-8.3); Neutrophils Percent Auto 76.4 % (45-73); Platelet Count 213 X10*3/uL (160-400); Red Blood Count 4.32 X10*6/uL (4.60-5.80); Red Cell Distribution Width 14.5 % (11.0-16.0); White Blood Count 6.1 X10*3/uL (4.8-10.8)
[2021-10-26 04:58] LABS: Sodium 152 mmol/L (135-145)
[2021-10-26 05:05] LABS: Anion Gap 16 (12-20); Blood Urea Nitrogen 38 mg/dL (9-16); Carbon Dioxide 28 mmol/L (22-29); Chloride 115 mmol/L (96-108); Creatinine Clr Calc Pharmacy 99.8; Estimated Glomerular Filt Rate > 60; Glucose Random 197 mg/dL (60-115); Potassium 4.4 mmol/L (3.3-5.1); Sodium 155 mmol/L (135-145)
[2021-10-26 05:06] LABS: Alanine Aminotransferase 94 U/L (0-40); Albumin Level 3.3 g/dL (3.5-5.0); Alkaline Phosphatase 154 U/L (39-117); Aspartate Amino Transferase 59 U/L (5-37); Bilirubin Direct 0.5 mg/dL (0.0-0.5); Bilirubin Total 1.1 mg/dL (0.0-1.0); Cholesterol 203 mg/dL; HDL Cholesterol 26 mg/dL; LDL Cholesterol Calculated 147 mg/dl; Total Protein 7.4 g/dL (6.5-8.0); Triglycerides 150 mg/dL
--- NOTE | 2021-10-26 07:00 | CA_ITS ---
Transthoracic Echocardiogram Patient (Last, First, Middle): Arnie Bess, Gender: Male Date of : 1945 Age: 75 Procedure Date: 10/26/2021 Procedure Type: Transthoracic Echocardiogram Location: ER Height: 177.8 cm Weight: 76.2 kg BSA: 1.94 m2 Heart Rate: 72 bpm BP: 117 / 70 mmHg [employer] University: [employer] Referring MD: Shanelle Davis NP Symptoms: stroke Study Quality: Adequate ECG Rhythm: Sinus Conclusions: - Normal left ventricular cavity size. There is normal left ventricular wall thickness. The left ventricular systolic function is moderately decreased. The visually estimated ejection fraction is between 30-35%. - The inferior wall is akinetic. - Normal right ventricular cavity size. There is mild to moderately decreased right ventricular systolic function. Findings Left Ventricle Normal left ventricular cavity size. There is normal left ventricular wall thickness. The left ventricular systolic function is moderately decreased. The visually estimated ejection fraction is between 30-35%. There is evidence of regional wall motion abnormalities. There is moderate global hypokinesis. Abnormal diastolic function is noted. Spectral Doppler is indicative of an impaired relaxation filling pattern. E/E prime ratio is <8, consistent with normal filling pressures. Wall Motion Rest Echo Findings The inferior wall is akinetic. Right Ventricle Normal right ventricular cavity size. There is mild to moderately decreased right ventricular systolic function. Atria The left atrium is normal in size. There is no evidence of interatrial shunt. The right atrium is normal in size. Aortic Valve There is mild calcification of the aortic valve. There is no aortic valve stenosis. There is no aortic valve regurgitation. Mitral Valve The mitral valve appears normal. There is no mitral valve regurgitation. There is no mitral valve stenosis. Pulmonic Valve The pulmonic valve is likely normal. Tricuspid Valve Normal tricuspid valve structure and function. There is trace tricuspid valve regurgitation. Tricuspid regurgitation envelope is inadequate for calculation of right ventricular systolic pressure. Normal right atrial pressure. Great Vessels All visible segments of the aorta are normal in size. The visualized portions of the pulmonary artery and branches are normal. Venous The inferior vena cava is normal in size and collapses greater than 50% with inspiration. Pericardium/Pleural There is no evidence of pericardial effusion. Prior Study Comparison No prior study available for comparison. Measurements 2D Linear Measurements IVSd: 0.80 0.6-0.9/0.6-1.0 cm LVIDd: 4.20 3.9-5.3/4.2-5.9 cm LVIDd Index: 2.16 2.4-3.2/2.2-3.1 cm/m2 LVIDs: 3.20 2.0-3.6 cm LVPWd: 0.56 0.7-1.1 cm LA Diam: 2.30 2.7-3.8/3.0-4.0 cm LAIDs Index: 1.19 1.5-2.3 cm/m2 LV Mass: 101.61 67-162/88-224 g LV Mass Index: 52.37 43-95/49-115 g/m2 LVOT Diam: 2.30 3.0+(-)1.3 cm 2D Systolic Function EF 4C: 38.60 >55% EF 2C: 49.80 >55% EF BiP: 44.90 >55% Mitral Valve MV Pk E: 0.41 MV PK A: 0.54 MV Decel Time: 174.00 E/A: 0.80 E'Lateral: 5.66 E'Medial: 5.11 E/E' Med: 8.00 E/E' Lat: 7.30 PHT: 51.00 MVA PHT: 4.31 Decel [place]: 2.36 Aortic Valve AoV Pk Nomi: 0.71 AoV Mn Nomi: 0.49 AoV VTI: 0.11 AoV Pk Grad: 2.00 Aov Mn Grad: 1.00 ANA M Cont.VTI: 3.79 LVOT LVOT Pk Nomi: 0.62 LVOT Mn Nomi: 0.46 LVOT VTI: 0.10 LVOT Pk Grad: 2.00 LVOT Mn Grad: 1.00 LVOT Diam: 2.30 LVOT Area: 4.15 Diastolic Function MV Pk E: 0.41 MV Pk A: 0.54 E/A: 0.80 E'Medial: 5.11 E/E' Med: 8.00 E' Laterial: 5.66 E/E' Lat: 7.30 Right Ventricle TAPSE (mm): 10.10 TVS' Nomi: 7.00 Tricuspid Valve RA Press: 3.00 Great Vessels Aorta Sinus of Valsalva: 3.20 2.0-3.5 cm Ao Asc: 3.00 2.1-3.4 cm Pulmonary Valve PV Pk Nomi: 0.55 Peak PV Grad: 1.00 Updated in Other Vendor System with Status of Final Hong Owens MD electronically signed on 10/26/2021 8:26:39 PM with status of Final
--- NOTE | 2021-10-26 08:29 | PC.NURSE ---
PT WAS CHANGED FROM CLOTHING AND INCONTINENCE BRIEF. HE HAD A LARGE AMOUNT OF URINE. NO SKIN BREAKDOWN NOTED. MOUTHCARE PROVIDED. HE IS ABLE TO ANSWER QUESTIONS WITH HEAD NODDING AND YES AND NO ANSWERS, IV FLUIDS INFUSING IN A PATENT 20G IN HIS RIGHT AC. BEDSIDE ECHO WAS COMPLETED
[2021-10-26 09:46] LABS: Sodium 155 mmol/L (135-145)
--- NOTE | 2021-10-26 12:37 | PC.NURSE ---
pt repositioned. cool to touch rectal temp 96.4
--- NOTE | 2021-10-26 12:53 | P.PNIM_ITS ---
Subjective Subjective Date of Service: 10/26/21 Review of Systems Follow up stroke Seems more confused today, less talkative not answering questions Physical Exam Vital Signs: Vital Signs: Last Vital Signs Temp 96.4 F L 10/26/21 12:21 Pulse 75 10/26/21 12:21 Resp 21 H 10/26/21 12:21 BP 117/71 10/26/21 12:21 Pulse Ox 100 10/26/21 12:21 O2 Del Method 10/26/21 12:21 O2 Flow Rate 3 10/26/21 12:21 BMI result Body Mass Index 24.1 Objective Data Active Medications Acetaminophen (Acetaminophen 325 Mg Tablet) 650 mg PO Q6H PRN PRN Reason: Pain, Mild (Pain Scale 1-3) Aspirin (Aspirin 81 Mg Tab.Chew) 81 mg PO DAILY [facility] Last Admin: 10/26/21 11:42 Dose: Not Given Documented By: TAHIR Non-Admin Reason: NPO Atorvastatin Calcium (Atorvastatin Calcium 40 Mg Tablet) 40 mg PO BEDTIME [facility] Last Admin: 10/25/21 23:08 Dose: Not Given Documented By: MALIK Non-Admin Reason: See Note Dextrose (D5w) 1,000 mls @ 100 mls/hr IVCONT .Q10H [facility] Last Admin: 10/26/21 04:33 Dose: 100 mls/hr Documented By: MALIK Non-Formulary Medication (Risperidone Microspheres) 50 mg IM Q14D [facility] Ondansetron HCl (Ondansetron Hcl 4 Mg/2 Ml Vial) 4 mg IVPUSH Q8H PRN PRN Reason: Nausea and Vomiting Pharmacy Consult (Consult Rx Perform Med Rec) 1 each MISCELLANE ONCE PRN PRN Reason: Consult order Polyethylene Glycol (Polyethylene Glycol 3350 17 Gm Powd.Pack) 17 gm PO DAILY [facility] Last Admin: 10/26/21 11:43 Dose: Not Given Documented By: TAHIR Non-Admin Reason: NPO Risperidone (Risperidone Oral Melanie 1 Mg/Ml Solution) 0.5 mg PO DAILY@1700 [facility] Sodium Chloride (0.9 % Sodium Chloride Flush 3 Ml Syringe) 3 ml IVFLUSH QSHIFT [facility] Last Admin: 10/26/21 11:42 Dose: Not Given Documented By: TAHIR Non-Admin Reason: IV Running Valproic Acid (Valproic Acid (As Sodium Salt) 250 Mg/5 Ml Solution) 1,000 mg PO DAILY@1700 [facility] Labs CBC & Chem 7: 10/26/21 04:25 10/26/21 09:29 Labs: Laboratory Results - last 24 hr 10/25/21 10/25/21 10/25/21 15:48 15:48 15:48 MCV 96.2 MCH 28.8 MCHC 29.9 L RDW 14.6 Plt Count 291 MPV 10.9 Immature Gran % (Auto) 0.4 Neut % (Auto) 80.1 H Lymph % (Auto) 14.4 L [place] % (Auto) 4.7 Eos % (Auto) 0.2 Baso % (Auto) 0.2 Lymph # (Auto) 1.2 [place] # (Auto) 0.4 Eos # (Auto) 0.0 Baso # (Auto) 0.0 Abs Immat Gran (auto) 0.03 Absolute Neuts (auto) 6.9 Absolute Nucleated RBC 0.000 Nucleated RBC % (auto) 0.0 PT INR Anion Gap 15 Estim Creat Clear Calc 84.9 Estimated GFR > 60 Random Glucose 132 H Lactic Acid Calcium 9.4 D Magnesium 3.0 H Total Bilirubin 1.2 H Direct Bilirubin 0.7 H AST 77 H ALT 112 H Alkaline Phosphatase 174 H D Troponin I High Sens 5.5 Total Protein 7.9 Albumin 3.8 Triglycerides Cholesterol LDL Cholesterol, Calc HDL Cholesterol COVID-19 (JEFF) COVID-[employer] 10/25/21 10/25/21 10/25/21 15:48 15:48 15:48 MCV MCH MCHC RDW Plt Count MPV Immature Gran % (Auto) Neut % (Auto) Lymph % (Auto) [place] % (Auto) Eos % (Auto) Baso % (Auto) Lymph # (Auto) [place] # (Auto) Eos # (Auto) Baso # (Auto) Abs Immat Gran (auto) Absolute Neuts (auto) Absolute Nucleated RBC Nucleated RBC % (auto) PT 16.3 H INR 1.4 H Anion Gap Estim Creat Clear Calc Estimated GFR Random Glucose Lactic Acid 1.6 Calcium Magnesium Total Bilirubin Direct Bilirubin AST ALT Alkaline Phosphatase Troponin I High Sens Total Protein Albumin Triglycerides Cholesterol LDL Cholesterol, Calc HDL Cholesterol COVID-19 (JEFF) Negative COVID-19 Clin Com See Note 10/26/21 10/26/21 10/26/21 04:25 04:25 04:25 MCV 96.1 MCH 28.9 MCHC 30.1 L RDW 14.5 Plt Count 213 D MPV 10.8 Immature Gran % (Auto) 0.7 H Neut % (Auto) 76.4 H Lymph % (Auto) 16.0 L [place] % (Auto) 5.7 Eos % (Auto) 1.0 Baso % (Auto) 0.2 Lymph # (Auto) 1.0 L [place] # (Auto) 0.4 Eos # (Auto) 0.1 Baso # (Auto) 0.0 Abs Immat Gran (auto) 0.04 H Absolute Neuts (auto) 4.7 Absolute Nucleated RBC 0.000 Nucleated RBC % (auto) 0.0 PT INR Anion Gap 16 Estim Creat Clear Calc 99.8 Estimated GFR > 60 Random Glucose 197 H D Lactic Acid Calcium 9.0 Magnesium Total Bilirubin 1.1 H Direct Bilirubin 0.5 AST 59 H ALT 94 H Alkaline Phosphatase 154 H Troponin I High Sens Total Protein 7.4 Albumin 3.3 L Triglycerides 150 Cholesterol 203 LDL Cholesterol, Calc 147 HDL Cholesterol 26 COVID-19 (JEFF) COVID-19 Clin Com Assessment and Plan (1) Brain TIA: Status: Acute (2) Stroke: Status: Acute Plan 75 year old man admitted [facility] possible stroke [facility] St[facility] Head CTA/CT neg Neurology consult pending echo pending telemetry monitoring PT/OT unable to participate in either asa, statin MRI pending Hypernatremia Likely secondary to dehydration Continue D5W Check sodium every 4hrs Transaminitis. Improving likely from dehydration Will follow LFTs closely mental health continue home medications DVT prophylaxis with lovenox Attending Dr. Hickey Full code continued hospitalization for workup of acute stroke Quality Stroke Does the patient have a stroke diagnosis?: No VTE Prior VTE?: No VTE Risk Level:: Medical - moderate - high VTE Device Contraindication: N/A - Device Ordered VTE Drug Contraindication: Treatment Not Indicated
--- NOTE | 2021-10-26 13:05 | PM.NEUROCN ---
History of Present Illness Data of Consult Service Date: 10/26/21 Primary Care Provider: Sharron Benton MD [facility] Reason for consult: ? Stroke 75 [facility] presenting with presumed stroke-like symptoms.? Patient was last seen normal at 0900. ? Staff found the patient at 12:10 with left-sided mouth drooping, patient not following commands, less interactive than usual.?Baseline is not known. On arrival to the emergency room, patient is mute, not following directions, seems mostly at baseline. He was able to say that he did not have any pain and stated that he had a stroke in the past. In the ER head CT was negative for intracranial hemorrhage, edema or acute infarction, There is an old left occipital infarct that would correlate with head CTA showed left vertebral artery occlusion with high-grade tandem stenosis within the intradural segment of the left vertebral artery.? He had remained hemodynamically stable.? Sodium was noted to be elevated at 160, total bilirubin 1.2. Review of Systems Review of Systems: Yes Unobtainable due to mental condition Cardiovascular: Cardiovascular: Reports no additional cardiovascular complaints Respiratory: Respiratory: Reports no additional respiratory complaints [facility] Past Medical History Medical History (Updated 10/28/21 @ 16:49 by Chase Odom MD) Anemia Bipolar 1 disorder Dementia Dysphagia Encephalopathy Hypoxia Mucus plugging of bronchi Psychosis Schizoaffective disorder Schizophrenia Sepsis Stroke Family History Pertinent family history: Unable to obtain due to patient's mental status Social History Social History Household Members: Other Housing: [facility] Do you presently have visiting nurse or other home services: Yes Unable to assess alcohol history related to: Unknown Patient Tobacco Use Status: Tobacco use Unknown service: No Current occupational status: disabled Meds Allergies Allergy/AdvReac Type Severity Reaction Status Date / Time haloperidol [From Haldol] Allergy Unknown Verified 09/22/21 17:10 Active Medications: Current Medications Acetaminophen (Acetaminophen 325 Mg Tablet) 650 mg PO Q6H PRN PRN Reason: Pain, Mild (Pain Scale 1-3) Aspirin (Aspirin 81 Mg Tab.Chew) 81 mg PO DAILY [facility] Last Admin: 10/26/21 11:42 Dose: Not Given Atorvastatin Calcium (Atorvastatin Calcium 40 Mg Tablet) 40 mg PO BEDTIME [facility] Last Admin: 10/25/21 23:08 Dose: Not Given Dextrose (D5w) 1,000 mls @ 100 mls/hr IVCONT .Q10H [facility] Last Admin: 10/26/21 04:33 Dose: 100 mls/hr Non-Formulary Medication (Risperidone Microspheres) 50 mg IM Q14D [facility] Ondansetron HCl (Ondansetron Hcl 4 Mg/2 Ml Vial) 4 mg IVPUSH Q8H PRN PRN Reason: Nausea and Vomiting Pharmacy Consult (Consult Rx Perform Med Rec) 1 each MISCELLANE ONCE PRN PRN Reason: Consult order Polyethylene Glycol (Polyethylene Glycol 3350 17 Gm Powd.Pack) 17 gm PO DAILY [facility] Last Admin: 10/26/21 11:43 Dose: Not Given Risperidone (Risperidone Oral Melanie 1 Mg/Ml Solution) 0.5 mg PO DAILY@1700 [facility] Sodium Chloride (0.9 % Sodium Chloride Flush 3 Ml Syringe) 3 ml IVFLUSH QSHIFT [facility] Last Admin: 10/26/21 11:42 Dose: Not Given Valproic Acid (Valproic Acid (As Sodium Salt) 250 Mg/5 Ml Solution) 1,000 mg PO DAILY@1700 [facility] Home Medications Medication Instructions Recorded Confirmed Last Taken Type polyethylene glycol 3350 17 gram 17 g PO DAILY 09/16/21 10/25/21 10/25/21 History oral powder packet risperidone 1 mg/mL oral solution 0.5 mg PO DAILY@1700 09/16/21 10/25/21 10/24/21 History risperidone microspheres 50 mg/2 50 mg IM Q14D 09/16/21 10/25/21 10/14/21 History mL intramuscular susp,ext release (Risperdal Consta) valproic acid (as sodium salt) 250 1,000 mg PO DAILY@1700 09/16/21 10/25/21 10/24/21 History mg/5 mL (5 mL) oral solution Physical Exam Vital Signs: Vital Signs: Last Vital Signs Temp 96.4 F L 10/26/21 12:21 Pulse 75 10/26/21 12:21 Resp 21 H 10/26/21 12:21 BP 117/71 10/26/21 12:21 Pulse Ox 100 10/26/21 12:21 O2 Del Method 10/26/21 12:21 O2 Flow Rate 3 10/26/21 12:21 BMI result Body Mass Index 24.1 Const: Other: Appearance: Alert. Does not seem in any acute distress, not talking, not following directions, unable to obtain any history from the patient Eyes: Pupils equal, round and reactive to light. ENT: Pharynx normal, missing teeth, seems to have a bit of bloody discharge in the tongue Neck: Normal inspection. Neck supple. No lymph nodes noted. No crepitus CVS: Normal heart rate and rhythm. Pulses normal. Normal S1 and S2 Respiratory: No respiratory distress. Breath sounds normal. No Wheezing. No rales Abdomen: Soft and nontender. No rigidity. No distention. Skin: Skin warm and dry. Normal skin color. Normal skin turgor. Extremities: No lower extremity edema. No Lacerations. No Rash Neuro: Unable to participate in cranial nerve assessment. The patient seems to be moving all extremities, unable to follow directions, patient does have left-sided mouth drooping Psych: calm Neuro: Other: His eyes are open but he does not communicate is essentially mute but will occasionally follow one-step commands such as opening his mouth and protruding his tongue. He does not move his limbs against gravity he has increased tone throughout. Reflexor hypoactive plantar responses are neutral. Neck is supple Results Labs CBC & Chem 7: 10/28/21 05:31 10/28/21 05:31 Labs: Short CBC 10/25/21 10/26/21 Range/Units 15:48 04:25 WBC 8.6 6.1 (4.8-10.8) X10*3/uL Hgb 12.9 L 12.5 L (14.0-18.0) g/dl Hct 43.1 41.5 L (42.0-52.0) % Plt Count 291 213 D (160-400) X10*3/uL BMP 10/25/21 10/25/21 10/26/21 15:48 19:58 00:20 Sodium 160 H* 158 H 156 H Potassium 4.5 D Chloride 117 H Carbon Dioxide 33 H BUN 42 H D Creatinine 0.80 Calcium 9.4 D 10/26/21 10/26/21 10/26/21 04:25 04:25 09:29 Sodium 155 H 152 H 155 H Potassium 4.4 Chloride 115 H Carbon Dioxide 28 BUN 38 H Creatinine 0.68 Calcium 9.0 Liver Function 10/25/21 10/26/21 Range/Units 15:48 04:25 Total Bilirubin 1.2 H 1.1 H (0.0-1.0) mg/dL Direct Bilirubin 0.7 H 0.5 (0.0-0.5) mg/dL AST 77 H 59 H (5-37) U/L ALT 112 H 94 H (0-40) U/L Alkaline Phosphatase 174 H D 154 H (39-117) U/L Albumin 3.8 3.3 L (3.5-5.0) g/dL Assessment and Plan (1) Brain TIA: Status: Acute Unclear if he had a TIA or possibly a small Sz. 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 cerebral atrophy on Ct Plan 75 year old man admitted with possible stroke [facility] Stroke Head CTA/CT neg Neurology consult pending echo pending telemetry monitoring PT/OT unable to participate in either asa, statin MRI pending Hypernatremia Likely secondary to dehydration Continue D5W Check sodium every 4hrs Transaminitis. Improving likely from dehydration Will follow LFTs closely mental health continue home medications DVT prophylaxis with lovenox Attending Dr. Hickey Full code continued hospitalization for workup of acute stroke Procedures Date of Service Date of Service: 10/26/21
[2021-10-26 14:12] LABS: Sodium 152 mmol/L (135-145)
--- NOTE | 2021-10-26 16:29 | PC.NURSE ---
pt more interactive this afternoon. resting quietly watching tv repositioned.
--- NOTE | 2021-10-26 16:31 | PC.NURSE ---
pt refusing all po intake offered
[2021-10-26 17:05] LABS: Sodium 154 mmol/L (135-145)
--- NOTE | 2021-10-26 17:05 | PC.NURSE ---
report given for [facility] admission
[2021-10-26] MEDS: risperiDONE Oral Sol 1 MG/ML SOLUTION 0.5 MG PO (18:44)
[2021-10-26] MEDS: 0.9 % Sodium Chloride Flush 3 ML SYRINGE IVFLUSH (20:55)
[2021-10-26 22:07] LABS: Sodium 152 mmol/L (135-145)
[2021-10-27] MEDS: Dextrose 5 % 1,000 ML 100 ML IVCONT ×2 (01:29→11:44)
[2021-10-27 04:00] VITALS: BP 112/74; PULSE 84; RESP 18; TEMP 36.1; O2SAT 99
[2021-10-27 05:50] LABS: MANUAL DIFF FLAG NO
[2021-10-27 05:51] LABS: Basophils Percent Auto 0.2 % (0-2); Eosinophils Absolute Auto 0.2 X10*3/uL (0.0-0.4); Hematocrit 37.8 % (42.0-52.0); Hemoglobin 11.5 g/dl (14.0-18.0); Imm Gran Abs Auto 0.05 X10*3/uL (0.00-0.03); Lymphocytes Absolute Auto 0.8 X10*3/uL (1.2-4.9); Lymphocytes Percent Auto 16.8 % (20-40); Mean Corpuscular HGB Conc 30.4 g/dl (31.0-36.0); Mean Corpuscular Hemoglobin 28.8 pg (27.0-33.0); Mean Corpuscular Volume 94.5 fL (80.0-98.0); Mean Platelet Volume 11.1 fL (9.4-12.4); Monocytes Absolute Auto 0.2 X10*3/uL (0.1-1.2); Monocytes Percent Auto 4.8 % (2-11); Neutrophils Absolute Auto 3.7 x10*3/uL (2.0-8.3); Neutrophils Percent Auto 73.2 % (45-73); Platelet Count 203 X10*3/uL (160-400); Red Cell Distribution Width 13.8 % (11.0-16.0)
[2021-10-27 06:08] LABS: Anion Gap 12 (12-20); Blood Urea Nitrogen 27 mg/dL (9-16); Calcium 8.6 mg/dL (8.4-10.2); Carbon Dioxide 30 mmol/L (22-29); Chloride 108 mmol/L (96-108); Creatinine Clr Calc Pharmacy 121.3; Estimated Glomerular Filt Rate > 60; Glucose Random 143 mg/dL (60-115); Potassium 3.9 mmol/L (3.3-5.1); Sodium 146 mmol/L (135-145)
[2021-10-27 06:09] LABS: Alanine Aminotransferase 111 U/L (0-40); Albumin Level 3.1 g/dL (3.5-5.0); Alkaline Phosphatase 159 U/L (39-117); Aspartate Amino Transferase 93 U/L (5-37); Bilirubin Direct 1.3 mg/dL (0.0-0.5); Total Protein 6.4 g/dL (6.5-8.0)
[2021-10-27 07:49] VITALS: BP 119/65; PULSE 84; RESP 19; TEMP 36.4; O2SAT 98
--- NOTE | 2021-10-27 10:05 | MHC.CM.PN ---
pt admitted [facility] bed hold pt will need bls when dcd
[2021-10-27 11:23] VITALS: BP 125/69; PULSE 84; RESP 20; TEMP 36.5; O2SAT 99
[2021-10-27 11:25] VITALS: BMI 24.1
--- NOTE | 2021-10-27 12:53 | P.PNIM_ITS ---
Subjective Subjective Date of Service: 10/27/21 Interval History: cc: facial droop interval history:non verbal Cardiovascular Cardiovascular: Reports no additional cardiovascular complaints Respiratory Respiratory: Reports no additional respiratory complaints Physical Exam Vital Signs: Vital Signs: Last Vital Signs Temp 97.7 F 10/27/21 11:23 Pulse 84 10/27/21 11:23 Resp 20 10/27/21 11:23 BP 125/69 10/27/21 11:23 Pulse Ox 99 10/27/21 11:23 O2 Del Method 10/27/21 11:23 O2 Flow Rate 2 10/27/21 11:23 BMI result Body Mass Index 24.1 Const: Other: Appearance: Alert. Does not seem in any acute distress, not talking, not following directions, unable to obtain any history from the patient Eyes: Pupils equal, round and reactive to light. ENT: Pharynx normal, missing teeth, seems to have a bit of bloody discharge in the tongue Neck: Normal inspection. Neck supple. No lymph nodes noted. No crepitus CVS: Normal heart rate and rhythm. Pulses normal. Normal S1 and S2 Respiratory: No respiratory distress. Breath sounds normal. No Wheezing. No rales Abdomen: Soft and nontender. No rigidity. No distention. Skin: Skin warm and dry. Normal skin color. Normal skin turgor. Extremities: No lower extremity edema. No Lacerations. No Rash Neuro: Unable to participate in cranial nerve assessment. The patient seems to be moving all extremities, unable to follow directions, patient does have left- sided mouth drooping Psych: calm Objective Data Active Medications Acetaminophen (Acetaminophen 325 Mg Tablet) 650 mg PO Q6H PRN PRN Reason: Pain, Mild (Pain Scale 1-3) Aspirin (Aspirin 81 Mg Tab.Chew) 81 mg PO DAILY [facility] Last Admin: 10/27/21 08:44 Dose: Not Given Documented By: ONESIMO Non-Admin Reason: unable patient drowsy Atorvastatin Calcium (Atorvastatin Calcium 40 Mg Tablet) 40 mg PO BEDTIME [facility] Last Admin: 10/26/21 20:56 Dose: Not Given Documented By: MEÑO Non-Admin Reason: Patient Refused Dextrose (D5w) 1,000 mls @ 100 mls/hr IVCONT .Q10H [facility] Last Admin: 10/27/21 11:44 Dose: 100 mls/hr Documented By: ONESIMO Non-Formulary Medication (Risperidone Microspheres) 50 mg IM Q14D [facility] Ondansetron HCl (Ondansetron Hcl 4 Mg/2 Ml Vial) 4 mg IVPUSH Q8H PRN PRN Reason: Nausea and Vomiting Pharmacy Consult (Consult Rx Perform Med Rec) 1 each MISCELLANE ONCE PRN PRN Reason: Consult order Polyethylene Glycol (Polyethylene Glycol 3350 17 Gm Powd.Pack) 17 gm PO DAILY [facility] Last Admin: 10/27/21 08:44 Dose: Not Given Documented By: ONESIMO Non-Admin Reason: unable patient drowsy Risperidone (Risperidone Oral Melanie 1 Mg/Ml Solution) 0.5 mg PO DAILY@1700 [facility] Last Admin: 10/26/21 18:44 Dose: 0.5 mg Documented By: VALENTINA Sodium Chloride (0.9 % Sodium Chloride Flush 3 Ml Syringe) 3 ml IVFLUSH QSHIFT [facility] Last Admin: 10/27/21 08:44 Dose: Not Given Documented By: ONESIMO Non-Admin Reason: IV Running Valproic Acid (Valproic Acid (As Sodium Salt) 250 Mg/5 Ml Solution) 1,000 mg PO DAILY@1700 [facility] Last Admin: 10/26/21 18:44 Dose: 1,000 mg Documented By: VALENTINA Labs CBC & Chem 7: 10/27/21 05:27 10/27/21 05:27 Labs: Laboratory Results - last 24 hr 10/27/21 10/27/21 10/27/21 05:27 05:27 05:27 MCV 94.5 MCH 28.8 MCHC 30.4 L RDW 13.8 Plt Count 203 MPV 11.1 Immature Gran % (Auto) 1.0 H Neut % (Auto) 73.2 H Lymph % (Auto) 16.8 L [place] % (Auto) 4.8 Eos % (Auto) 4.0 Baso % (Auto) 0.2 Lymph # (Auto) 0.8 L [place] # (Auto) 0.2 Eos # (Auto) 0.2 Baso # (Auto) 0.0 Abs Immat Gran (auto) 0.05 H Absolute Neuts (auto) 3.7 Absolute Nucleated RBC 0.000 Nucleated RBC % (auto) 0.0 Anion Gap 12 Estim Creat Clear Calc 121.3 Estimated GFR > 60 Random Glucose 143 H Calcium 8.6 Total Bilirubin 2.0 H Direct Bilirubin 1.3 H AST 93 H ALT 111 H Alkaline Phosphatase 159 H Total Protein 6.4 L Albumin 3.1 L Microbiology Microbiology Results: Microbiology 10/25/21 15:48 Blood Culture - Preliminary Blood - Venous No growth after 24 hours. 10/25/21 15:45 Blood Culture - Preliminary Blood - Venous No growth after 24 hours. 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
--- NOTE | 2021-10-27 14:31 | PM.CNCAR ---
History of Present Illness History of Present Illness Date of Service: 10/27/21 Requesting physician: Tripp Culver Chief complaint: Cardiomyopathy Narrative: 75-year-old gentleman who is presenting with CVA. He has known history of previous stroke. Patient is not very interactive. History is very limited and brief. Denying any chest pains or shortness of breath. For stroke workup he had echocardiogram which is showing moderately reduced ejection fraction with global hypokinesia with regional variations particularly in the inferior wall which is akinetic. Right ventricle was mild to moderately decreased in function too. Patient is saying that he did not have any history of cardiomyopathy before. [facility] Past Medical History Medical History (Updated 10/27/21 @ 14:34 by Hong Owens MD) Anemia Bipolar 1 disorder Dementia Dysphagia Encephalopathy Hypoxia Mucus plugging of bronchi Psychosis Schizoaffective disorder Schizophrenia Sepsis Stroke Social History Social History Household Members: Other Housing: Care Home Do you presently have visiting nurse or other home services: Yes Unable to assess alcohol history related to: Unknown Patient Tobacco Use Status: Tobacco use Unknown service: No Current occupational status: disabled Meds Allergies Allergy/AdvReac Type Severity Reaction Status Date / Time haloperidol [From Haldol] Allergy Unknown Verified 09/22/21 17:10 Active Medications: Current Medications Acetaminophen (Acetaminophen 325 Mg Tablet) 650 mg PO Q6H PRN PRN Reason: Pain, Mild (Pain Scale 1-3) Aspirin (Aspirin 81 Mg Tab.Chew) 81 mg PO DAILY [facility] Last Admin: 10/27/21 08:44 Dose: Not Given Atorvastatin Calcium (Atorvastatin Calcium 40 Mg Tablet) 40 mg PO BEDTIME [facility] Last Admin: 10/26/21 20:56 Dose: Not Given Enoxaparin Sodium (Enoxaparin Sodium 40 Mg/0.4 Ml Syringe) 40 mg SUBCUT Q24H [facility] Dextrose (D5w) 1,000 mls @ 100 mls/hr IVCONT .Q10H [facility] Last Admin: 10/27/21 11:44 Dose: 100 mls/hr Losartan Potassium (Losartan Potassium 25 Mg Tablet) 25 mg PO DAILY [facility]; Protocol Non-Formulary Medication (Risperidone Microspheres) 50 mg IM Q14D [facility] Ondansetron HCl (Ondansetron Hcl 4 Mg/2 Ml Vial) 4 mg IVPUSH Q8H PRN PRN Reason: Nausea and Vomiting Pharmacy Consult (Consult Rx Perform Med Rec) 1 each MISCELLANE ONCE PRN PRN Reason: Consult order Polyethylene Glycol (Polyethylene Glycol 3350 17 Gm Powd.Pack) 17 gm PO DAILY [facility] Last Admin: 10/27/21 08:44 Dose: Not Given Risperidone (Risperidone Oral Melanie 1 Mg/Ml Solution) 0.5 mg PO DAILY@1700 [facility] Last Admin: 10/26/21 18:44 Dose: 0.5 mg Sodium Chloride (0.9 % Sodium Chloride Flush 3 Ml Syringe) 3 ml IVFLUSH QSHIFT [facility] Last Admin: 10/27/21 08:44 Dose: Not Given Valproic Acid (Valproic Acid (As Sodium Salt) 250 Mg/5 Ml Solution) 1,000 mg PO DAILY@1700 [facility] Last Admin: 10/26/21 18:44 Dose: 1,000 mg Home Medications Medication Instructions Recorded Confirmed Last Taken Type polyethylene glycol 3350 17 gram 17 g PO DAILY 09/16/21 10/25/21 10/25/21 History oral powder packet risperidone 1 mg/mL oral solution 0.5 mg PO DAILY@1700 09/16/21 10/25/21 10/24/21 History risperidone microspheres 50 mg/2 50 mg IM Q14D 09/16/21 10/25/21 10/14/21 History mL intramuscular susp,ext release (Risperdal Consta) valproic acid (as sodium salt) 250 1,000 mg PO DAILY@1700 09/16/21 10/25/21 10/24/21 History mg/5 mL (5 mL) oral solution Physical Exam Vital Signs: Vital Signs: Last Vital Signs Temp 97.7 F 10/27/21 11:23 Pulse 84 10/27/21 11:23 Resp 20 10/27/21 11:23 BP 125/69 10/27/21 11:23 Pulse Ox 99 10/27/21 11:23 O2 Del Method 10/27/21 11:23 O2 Flow Rate 2 10/27/21 11:23 BMI result Body Mass Index 24.1 GENERAL APPEARANCE: Laying in bed. In no distress. NECK: no jugular venous distention. SKIN: no suspicious lesions, warm and dry. HEART: no murmurs, regular rate and rhythm. LUNGS: clear to auscultation bilaterally. ABDOMEN: soft, nontender. EXTREMITIES: no edema. PERIPHERAL PULSES: equal. NEUROLOGIC: Awake, following commands, previous left-sided stroke with left arm contracture. Objective Labs and Meds Result diagrams: 10/27/21 05:27 10/27/21 05:27 Lab results: Laboratory Results - last 24 hr 10/26/21 10/26/21 10/27/21 16:20 21:34 05:27 WBC 5.0 RBC 4.00 L Hgb 11.5 L Hct 37.8 L MCV 94.5 MCH 28.8 MCHC 30.4 L RDW 13.8 Plt Count 203 MPV 11.1 Immature Gran % (Auto) 1.0 H Neut % (Auto) 73.2 H Lymph % (Auto) 16.8 L [place] % (Auto) 4.8 Eos % (Auto) 4.0 Baso % (Auto) 0.2 Lymph # (Auto) 0.8 L [place] # (Auto) 0.2 Eos # (Auto) 0.2 Baso # (Auto) 0.0 Abs Immat Gran (auto) 0.05 H Absolute Neuts (auto) 3.7 Absolute Nucleated RBC 0.000 Nucleated RBC % (auto) 0.0 Sodium 154 H 152 H Potassium Chloride Carbon Dioxide Anion Gap BUN Creatinine Estim Creat Clear Calc Estimated GFR Random Glucose Calcium Total Bilirubin Direct Bilirubin AST ALT Alkaline Phosphatase Total Protein Albumin 10/27/21 10/27/21 05:27 05:27 WBC RBC Hgb Hct MCV MCH MCHC RDW Plt Count MPV Immature Gran % (Auto) Neut % (Auto) Lymph % (Auto) [place] % (Auto) Eos % (Auto) Baso % (Auto) Lymph # (Auto) [place] # (Auto) Eos # (Auto) Baso # (Auto) Abs Immat Gran (auto) Absolute Neuts (auto) Absolute Nucleated RBC Nucleated RBC % (auto) Sodium 146 H Potassium 3.9 Chloride 108 Carbon Dioxide 30 H Anion Gap 12 BUN 27 H Creatinine 0.56 Estim Creat Clear Calc 121.3 Estimated GFR > 60 Random Glucose 143 H Calcium 8.6 Total Bilirubin 2.0 H Direct Bilirubin 1.3 H AST 93 H ALT 111 H Alkaline Phosphatase 159 H Total Protein 6.4 L Albumin 3.1 L Assessment and Plan (1) Cardiomyopathy: Status: Acute Plan 75-year-old gentleman presenting with CVA. He had echocardiography performed as stroke workup which showed incidental finding of moderately reduced ejection fraction. Clinically is not in heart failure. He is not ambulatory because of previous stroke. Recommend adding low-dose losartan 25 mg once a day. His BP is stable after addition of losartan then Toprol-XL 25 mg once a day can be added. These medications may need titration depending on blood pressure response. He will need repeat echocardiography in few months. The likely etiology of the cardiomyopathy is coronary artery disease. Given stroke and poor overall function status I think he is not a candidate for any invasive procedures. He should be managed conservatively and would be on statin and aspirin due to his CVA regardless. Thank you for allowing me to participate in the care of your patient. Please feel free to contact me if you have any questions. Procedures Date of Service Date of Service: 10/27/21
--- NOTE | 2021-10-27 15:07 | MHC.SLORD ---
Speech Language Pathology Order Status: Received order for bedside dysphagia evaluation. Pt awoke to change in position, would not stay awake more than few seconds. D/t lethargic state, unable to complete bedside swallow. Notified MD and RN via [facility] Message.
[2021-10-27 16:00] VITALS: BP 130/65; PULSE 85; RESP 20; TEMP 36.7; O2SAT 100
[2021-10-27] MEDS: Enoxaparin Sodium 40 MG/0.4 ML SYRINGE SUBCUT (17:30)
[2021-10-27 19:38] VITALS: BP 104/68; PULSE 84; RESP 17; TEMP 36.4; O2SAT 100
[2021-10-27 23:41] VITALS: BP 90/60; PULSE 88; RESP 18; TEMP 36.1; O2SAT 99
[2021-10-28] VITALS (7 sets, daily range): BP systolic 81–148; BP diastolic 57–81; PULSE 74–101; RESP 16–18; TEMP 36.1–37.1; O2SAT 97–100
[2021-10-28 06:09] LABS: Hematocrit 37.2 % (42.0-52.0); Hemoglobin 11.4 g/dl (14.0-18.0); Mean Corpuscular HGB Conc 30.6 g/dl (31.0-36.0); Mean Corpuscular Hemoglobin 28.6 pg (27.0-33.0); Mean Corpuscular Volume 93.2 fL (80.0-98.0); Mean Platelet Volume 11.2 fL (9.4-12.4); Platelet Count 210 X10*3/uL (160-400); Red Blood Count 3.99 X10*6/uL (4.60-5.80); Red Cell Distribution Width 13.6 % (11.0-16.0); White Blood Count 4.5 X10*3/uL (4.8-10.8)
[2021-10-28 06:34] LABS: Anion Gap 10 (12-20); Blood Urea Nitrogen 19 mg/dL (9-16); Calcium 8.7 mg/dL (8.4-10.2); Carbon Dioxide 31 mmol/L (22-29); Chloride 105 mmol/L (96-108); Creatinine Clr Calc Pharmacy 133.1; Estimated Glomerular Filt Rate > 60; Glucose Fasting 108 mg/dL (60-99); Potassium 4.2 mmol/L (3.3-5.1); Sodium 142 mmol/L (135-145)
[2021-10-28] MEDS: 0.9 % Sodium Chloride Flush 3 ML SYRINGE IVFLUSH ×2 (08:50→15:41)
[2021-10-28] MEDS: Losartan Potassium 25 MG TABLET PO (08:50)
[2021-10-28] MEDS: Aspirin 81 MG TAB.CHEW PO (08:50)
[2021-10-28] MEDS: polyethylene glycoL 3350 17 GM POWD.PACK PO (08:50)
--- NOTE | 2021-10-28 09:55 | P.PNIM_ITS ---
Subjective Subjective Date of Service: 10/28/21 Interval History: cc: facial droop interval history:now more alert, able to vocalize and follow commands Cardiovascular Cardiovascular: Reports no additional cardiovascular complaints Respiratory Respiratory: Reports no additional respiratory complaints Physical Exam Vital Signs: Vital Signs: Last Vital Signs Temp 97 F 10/28/21 07:52 Pulse 74 10/28/21 07:52 Resp 16 10/28/21 07:52 BP 113/63 10/28/21 07:52 Pulse Ox 100 10/28/21 07:52 O2 Del Method 10/28/21 07:52 O2 Flow Rate 2 10/28/21 07:52 BMI result Body Mass Index 24.1 General: lethargic O X 2, no acute distress Resp: CTA bilateral, no accessory muscles used CVS: S1,S2,RRR GI: soft, non tender, non distended Neuro: L>R UE weakness, R>L LE weakness, now following commands, able to recite ABCs Psych: appropriate affect, impaired insight Objective Data Active Medications Acetaminophen (Acetaminophen 325 Mg Tablet) 650 mg PO Q6H PRN PRN Reason: Pain, Mild (Pain Scale 1-3) Aspirin (Aspirin 81 Mg Tab.Chew) 81 mg PO DAILY [facility] Last Admin: 10/28/21 08:50 Dose: 81 mg Documented By: MARGUERITE Atorvastatin Calcium (Atorvastatin Calcium 40 Mg Tablet) 40 mg PO BEDTIME [facility] Last Admin: 10/27/21 21:35 Dose: Not Given Documented By: REAGAN Non-Admin Reason: NPO Enoxaparin Sodium (Enoxaparin Sodium 40 Mg/0.4 Ml Syringe) 40 mg SUBCUT Q24H [facility] Last Admin: 10/27/21 17:30 Dose: 40 mg Documented By: ONESIMO Losartan Potassium (Losartan Potassium 25 Mg Tablet) 25 mg PO DAILY [facility]; Pro tocol Last Admin: 10/28/21 08:50 Dose: 25 mg Documented By: MARGUERITE Non-Formulary Medication (Risperidone Microspheres) 50 mg IM Q14D [facility] Ondansetron HCl (Ondansetron Hcl 4 Mg/2 Ml Vial) 4 mg IVPUSH Q8H PRN PRN Reason: Nausea and Vomiting Pharmacy Consult (Consult Rx Perform Med Rec) 1 each MISCELLANE ONCE PRN PRN Reason: Consult order Polyethylene Glycol (Polyethylene Glycol 3350 17 Gm Powd.Pack) 17 gm PO DAILY [facility] Last Admin: 10/28/21 08:50 Dose: 17 gm Documented By: MARGUERITE Risperidone (Risperidone Oral Melanie 1 Mg/Ml Solution) 0.5 mg PO DAILY@1700 [facility] Last Admin: 10/27/21 17:16 Dose: Not Given Documented By: ONESIMO Non-Admin Reason: too drowsy, npo Sodium Chloride (0.9 % Sodium Chloride Flush 3 Ml Syringe) 3 ml IVFLUSH QSHIFT [facility] Last Admin: 10/28/21 08:50 Dose: 3 ml Documented By: MARGUERITE Valproic Acid (Valproic Acid (As Sodium Salt) 250 Mg/5 Ml Solution) 1,000 mg PO DAILY@1700 [facility] Last Admin: 10/27/21 17:17 Dose: Not Given Documented By: ONESIMO Non-Admin Reason: too drowsy, npo Labs CBC & Chem 7: 10/28/21 05:31 10/28/21 05:31 Labs: Laboratory Results - last 24 hr 10/28/21 10/28/21 05:31 05:31 MCV 93.2 MCH 28.6 MCHC 30.6 L RDW 13.6 Plt Count 210 MPV 11.2 Absolute Nucleated RBC 0.000 Nucleated RBC % (auto) 0.0 Anion Gap 10 L Estim Creat Clear Calc 133.1 Estimated GFR > 60 Fasting Glucose 108 H Calcium 8.7 Microbiology Microbiology Results: Microbiology 10/25/21 15:48 Blood Culture - Preliminary Blood - Venous No growth after 48 hours. 10/25/21 15:45 Blood Culture - Preliminary Blood - Venous No growth after 48 hours. Assessment and Plan (1) Brain TIA: Status: Acute (2) Stroke: Status: Acute Plan 75 [facility] left facial droop, metabolic encephalopathy no acute cva on CTA, left vertebral artery occluded mri showed: The vascular flow void within the right transverse and sigmoid sinus is absent. Correlation with the recent CT angiogram reveals that there has been recanalization of a chronic thrombosis. There is a chronic cortical infarct within the vascular territory of left middle cerebral artery and scattered chronic small vessel ischemic changes primarily involving the periventricular white matter. No evidence of acute territorial infarct or hemorrhage. follow up [employer], neuro cardiomyopathy echo with reduced EF cardio appreciated, losartan 25mg added, eventuallly will add toprol 25mg if bp satble, repeat echo in 3 months. Hypernatremia improved, will hold d5w and monitor mood disorder risperdal, depakote DVT prophylaxis with lovenox Full code reason for continued hospitalization: close montioring for hypernatremia Quality Stroke Does the patient have a stroke diagnosis?: No VTE Prior VTE?: No VTE Risk Level:: Medical - moderate - high VTE Device Contraindication: N/A - Device Ordered VTE Drug Contraindication: Treatment Not Indicated
--- NOTE | 2021-10-28 11:18 | PM.PNCARD ---
Subjective Subjective Date of Service: 10/28/21 Interval history: Seen and examined at bedside. Denying any chest discomfort shortness of breath. Brain MRI report reviewed and did not show any acute territory infarct or hemorrhage. Physical Exam Vital Signs: Last Vital Signs Temp 97 F 10/28/21 07:52 Pulse 74 10/28/21 07:52 Resp 16 10/28/21 07:52 BP 113/63 10/28/21 07:52 Pulse Ox 100 10/28/21 07:52 O2 Del Method 10/28/21 07:52 O2 Flow Rate 2 10/28/21 07:52 BMI result Body Mass Index 24.1 GENERAL APPEARANCE: Laying in bed. In no distress. NECK: no jugular venous distention. SKIN: no suspicious lesions, warm and dry. HEART: no murmurs, regular rate and rhythm. LUNGS: clear to auscultation bilaterally. ABDOMEN: soft, nontender. EXTREMITIES: no edema. PERIPHERAL PULSES: equal. NEUROLOGIC: Awake, following commands, previous left-sided stroke with left arm contracture. Objective Labs and Meds Result diagrams: 10/28/21 05:31 10/28/21 05:31 Lab results: Laboratory Results - last 24 hr 10/28/21 10/28/21 05:31 05:31 WBC 4.5 L RBC 3.99 L Hgb 11.4 L Hct 37.2 L MCV 93.2 MCH 28.6 MCHC 30.6 L RDW 13.6 Plt Count 210 MPV 11.2 Absolute Nucleated RBC 0.000 Nucleated RBC % (auto) 0.0 Sodium 142 Potassium 4.2 Chloride 105 Carbon Dioxide 31 H Anion Gap 10 L BUN 19 H Creatinine 0.51 Estim Creat Clear Calc 133.1 Estimated GFR > 60 Fasting Glucose 108 H Calcium 8.7 Imaging Radiologist's impression: Impressions Brain MRI 10/27/21 11:06 IMPRESSION: The vascular flow void within the right transverse and sigmoid sinus is absent. Correlation with the recent CT angiogram reveals that there has been recanalization of a chronic thrombosis. There is a chronic cortical infarct within the vascular territory of left middle cerebral artery and scattered chronic small vessel ischemic changes primarily involving the periventricular white matter. No evidence of acute territorial infarct or hemorrhage. Progress Note: A&P Assessment and plan (1) Cardiomyopathy: Status: Acute Plan 75-year-old gentleman presenting with TIA on background of or stroke who was incidentally found to have cardiomyopathy on echocardiography. There are some features pointing to her ischemic cardiomyopathy. He is not mobile because of old stroke. Denying any symptoms. We have added losartan 25 mg once a day. If his blood pressure allows then at Toprol-XL 25 mg once a day to his regimen. We will repeat his echocardiogram in few months. He is not a good candidate for invasive ischemic workup. He is also asymptomatic currently. I think he is going to get aspirin and atorvastatin for the stroke which will cover for medical management of potential underlying coronary disease too. Signing off. Thank you for allowing me to participate in the care of your patient. Please feel free to contact me if you have any questions. Time Spent With Patient Time: Total time spent is greater than 50% in coordination of care (as documented) at patient's floor/unit and/or counseling patient: Progress Note: Quality Stroke Does the patient have a stroke diagnosis?: No Procedures Date of Service Date of Service: 10/28/21
[2021-10-28] MEDS: Enoxaparin Sodium 40 MG/0.4 ML SYRINGE SUBCUT (12:29)
--- NOTE | 2021-10-28 12:49 | MHC.STROKE ---
[facility] PRE-NOTIFIED STROKE ALERT AT 1231, ARRIVED 1238 FROM SNF, LAST KNOWN WELL 0900, DISCOVERED 1210. STROKE PROTOCOL ACTIVATED. NIHSS = 19, DIRECT TO CT, CTA H/N STAT, NO BLEED, LEFT VERTEBRAL OCCLUSION UNKNOWN ONSET. EXCLUDED FROM TPA BASED ON UNCLEAR ONSET, MULTIPLE CO-MORBIDITIES AND CARE TEAM UNABLE TO DETERMINE ELIGIBILITY BASED ON PMH. PASSED SWALLOW. FOLLOWED BY STROKE SERVICE MRI DONE AND NO ACUTE STROKE. UNABLE TO COMPREHEND STROKE EDUCATION, HE WILL RETURN TO [facility].
[2021-10-28] MEDS: risperiDONE Oral Sol 1 MG/ML SOLUTION 0.5 MG PO (16:21)
--- NOTE | 2021-10-28 18:19 | MHC.SL.SWA ---
Speech Pathologist Impression: Risk of Aspiration Due to: Neurological Condition Reduced Cognition Dysphasia Diet Status: Liquid Consistency and Strategies for Safe Swallow: Liquid Intake Recommendation: Thin Liquid Intake Strategies: Small Sips No Straws Solid Food Consistency: Dietary Recommendations: Pureed (NDD1) Additional Modifications to Solid Foods: Pt will need assistance and ample encouragement to participate in meals. Aspiration precautions apply. Hold tray if patient lethargic, disengaged. Oral Medication Intake: Crushed with Puree Please contact the pharmacy regarding appropriate crushable or liquid drug formulations that are available whenever modified delivery is recommended. Compensatory Strategies and Precautions to be Taken for Safe Swallow: Sitting Upright (90 deg) No Straw Liquids from Cup Small Bites and Sips Alternate Liquids/Solids Oral Check Supervision While Eating and Drinking for Safe Swallow: Total Assistance (1:1) Foods to Avoid: Sticky, congealed consistencies Swallowing Recommended Treatments: Compens. Strategy Educat. Recommendation for Speech: Inpatient Speech Therapy Comment: Pt reluctantly participated in Bedside Swallow today, accepting cup sips of water and some tsps of puree constancy. Pt is mostly edentulous, presents with a mild delay of oral phase on puree consistencies, a timely swallow and mildly reduced laryngeal elevation on liquid and puree consistencies presented, however no clinical s/s aspiration. Recommend start diet of Puree (NDD1) w/ Thin Liquids. Patient will need full assistance during meals, with behavioral encouragement to participate, and monitor for aspiration signs. GRINDER SET UP OPERATOR EXTERNAL will continue to follow, assess toleration of diet, re-assess swallow and advance diet as warranted. JORGE LUIS TOLENTINO notified by secure text of recommendation, Nursing advised at bedside. Frequency/Duration: Date Range for Service Req: Timeline to reassess: Supervisor Telephone Information Clinican/Clinical Fellow: No Supervisory Statement: I have reviewed and agree with the student/clinical fellow's documentation: N/A Speech Language Pathologist: Leyla Underwood M.A., CCC-GRINDER SET UP OPERATOR EXTERNAL
[2021-10-29] VITALS (7 sets, daily range): BP systolic 94–148; BP diastolic 58–96; PULSE 65–95; RESP 17–18; TEMP 36.1–37.2; O2SAT 97–98
[2021-10-29] MEDS: 0.9 % Sodium Chloride Flush 3 ML SYRINGE IVFLUSH ×2 (00:19→08:50)
[2021-10-29 06:49] LABS: Anion Gap 15 (12-20); Blood Urea Nitrogen 27 mg/dL (9-16); Calcium 8.9 mg/dL (8.4-10.2); Carbon Dioxide 28 mmol/L (22-29); Chloride 106 mmol/L (96-108); Creatinine Clr Calc Pharmacy 111.3; Estimated Glomerular Filt Rate > 60; Glucose Fasting 101 mg/dL (60-99); Potassium 4.6 mmol/L (3.3-5.1); Sodium 144 mmol/L (135-145)
[2021-10-29 06:50] LABS: Hemoglobin 12.2 g/dl (14.0-18.0); Mean Corpuscular HGB Conc 31.3 g/dl (31.0-36.0); Mean Corpuscular Hemoglobin 28.8 pg (27.0-33.0); Mean Platelet Volume 11.2 fL (9.4-12.4); Platelet Count 199 X10*3/uL (160-400); Red Blood Count 4.24 X10*6/uL (4.60-5.80); Red Cell Distribution Width 13.9 % (11.0-16.0); White Blood Count 4.6 X10*3/uL (4.8-10.8)
[2021-10-29] MEDS: polyethylene glycoL 3350 17 GM POWD.PACK PO (08:50)
[2021-10-29] MEDS: Losartan Potassium 25 MG TABLET PO (08:50)
[2021-10-29] MEDS: Aspirin 81 MG TAB.CHEW PO (08:50)
--- NOTE | 2021-10-29 10:19 | MHC.CLN ---
F/U PT WITH INCREASED NUTRITION RISK R/T PRESSURE INJURY DIET RX: PUREED -APPROPRIATE PT RECEIVING ENSURE ENLIVE BID TO INCREASE KCALS AND PROMOTE WOUND HEALING SUPP PROVIDES 700KCALS, 40G PROTEIN MONITOR PO INTAKE CLOSELY
--- NOTE | 2021-10-29 11:24 | PM.DS ---
DS: Providers Provider Date of Service: 10/29/21 Date of admission: 10/25/21 16:52 Primary care physician: Sharron Benton MD Consults: 10/25/21 16:52 Consult to Neurology Routine Consulting Provider: [facility] Reason for consultation: stroke Has provider been notified: No 10/27/21 09:01 Consult to Cardiology Routine Consulting Provider: Hong Owens Reason for consultation: admitted for CVA, reduced EF on echo DS: Diagnosis Discharge Diagnosis (1) Brain TIA: Status: Acute (2) Stroke: Status: Acute (3) TBI (traumatic brain injury): Status: Acute DS: Summary Hospital Course Hospital Course: from initial hpi: Chief Complaint: Nonverbal 75 [facility] with stroke-like symptoms.? Patient was last seen normal at 0900. ? Staff found the patient at 12:10 with left-sided mouth drooping, patient not following commands, less interactive than usual.? On arrival to the emergency room, patient is mute, not following directions, seems mostly at baseline. He was able to say that he did not have any pain and stated that he had a stroke in the past. 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 He had remained hemodynamically stable.? Sodium was noted to be elevated at 160, total bilirubin 1.2.? He was given a dose of aspirin in the ER.? Will be admitted for further management and treatment of acute stroke hospital course: Patient was admitted for aphasia and left facial droop initially thought to be stroke though appears to be more metabolic encephalopathy due to hypernatremia. CTA showed left vertebral artery occlusion, MRI showed vascular flow void within the right transverse and sigmoid sinus being absent correlating with CTA reveals recanalization of chronic thrombosis, neurology has recommended 3 months of Eliquis ( aspirin will be held during this time). After hydration with hypotonic fluids patient's sodium resolved and mental status returned to baseline, is now able to talk slowly full sentences, dysphagia improved and speech as recommended pureed solids with thin liquids. As part of workup for possible CVA patient underwent echocardiogram which revealed cardiomyopathy with reduced EF, he was seen by Cardiology recommended starting losartan and Toprol and repeating echo in 3 months. For his mood disorder he was continued on risperdal and Depakote. He appears close to baseline will be discharged back to skilled nurse facility. Time Spent with Patient Time attestation: Total time spent providing and/or coordinating discharge services: Discharge coordination time: Greater than 30 minutes Quality: Safe Use of Opioids Does Pt have an Active Cancer Diagnosis on the Problem List?: No Quality: Stroke Does the patient have a stroke diagnosis?: No Physical Exam Vital Signs: Vital Signs: Last Vital Signs Temp 98.9 F 10/29/21 11:20 Pulse 89 10/29/21 11:20 Resp 18 10/29/21 11:20 BP 112/68 10/29/21 11:20 Pulse Ox 98 10/29/21 11:20 O2 Del Method 10/29/21 11:20 O2 Flow Rate 4 10/28/21 11:28 BMI result Body Mass Index 24.1 GENERAL APPEARANCE: Laying in bed. In no distress. NECK: no jugular venous distention. SKIN: no suspicious lesions, warm and dry. HEART: no murmurs, regular rate and rhythm. LUNGS: clear to auscultation bilaterally. ABDOMEN: soft, nontender. EXTREMITIES: no edema. PERIPHERAL PULSES: equal. NEUROLOGIC: Awake, following commands, previous left-sided stroke with left arm contracture. DS: Data Data Completed and Pending Labs on day of discharge: Laboratory Results - last 24 hr 10/29/21 10/29/21 06:16 06:16 WBC 4.6 L RBC 4.24 L Hgb 12.2 L Hct 39.0 L MCV 92.0 MCH 28.8 MCHC 31.3 RDW 13.9 Plt Count 199 MPV 11.2 Absolute Nucleated RBC 0.000 Nucleated RBC % (auto) 0.0 Sodium 144 Potassium 4.6 Chloride 106 Carbon Dioxide 28 Anion Gap 15 BUN 27 H Creatinine 0.61 Estim Creat Clear Calc 111.3 Estimated GFR > 60 Fasting Glucose 101 H Calcium 8.9 Preliminary micro results at discharge 10/25/21 15:48 Blood Culture - Preliminary Blood - Venous No growth after 48 hours. 10/25/21 15:45 Blood Culture - Preliminary Blood - Venous No growth after 48 hours. Discharge Plan Discharge Patient Disposition: [facility] Discharge Diagnosis: hypernatremia Referrals: Sharron Benton MD [Primary Care Provider] - 1 Week Discharge Medications: New atorvastatin 40 mg Tablet 40 mg PO BEDTIME Qty: 0 0RF losartan 25 mg Tablet 25 mg PO DAILY Qty: 0 0RF Protocol: Hold for SBP< HOLD for SBP < : 90 metoprolol succinate 25 mg Tablet Extended Release 24 Hr 25 mg PO DAILY Qty: 0 0RF Protocol: Hold for SBP/HR < HOLD for SBP < : 90 HOLD for HR < : 60 Eliquis 5 mg Tablet 5 mg PO BID 90 Days Qty: 180 0RF Continued polyethylene glycol 3350 17 gram Powder In Packet 17 g PO DAILY risperidone 1 mg/mL Solution 0.5 mg PO DAILY@1700 Risperdal Consta 50 mg/2 mL Suspension,Extended Rel Recon 50 mg IM Q14D valproic acid (as sodium salt) 250 mg/5 mL (5 mL) Solution 1,000 mg PO DAILY@1700 Discharge Orders: Discharge Order (Routine); Ordered 10/29/21 Ordered By: Tripp Culver Diet: pureed with thin liquids Activity on Discharge: As tolerated Stand Alone Forms: Patient Portal Discharge page Care Plan Goals: avoid hospitalizations Health Concerns: hypernatremia, hand drawer in helper venous thrombosus of unknown chronicity, cardiomyopathy Plan of Treatment: 3 months eliquis, then restart asa, encourage po fluids, started toprol and losartan Assessment: see above
--- NOTE | 2021-10-29 11:29 | MHC.SLORD ---
Speech Language Pathology Order Status: Attempted to see pt this morning for dysphagia treatment. Despite encouragement, pt refused, stating No I don't want to. No PO trials given as pt would not participate. Pt currently on pureed diet (NDD1) with thin liquids. [facility] will continue to follow.
[2021-10-29 12:55] LABS: COVID-19 Test Negative (Negative)
--- NOTE | 2021-10-29 13:23 | MHC.CM.PN ---
PT WILL DC BACK TO [facility] WHERE HE IS A LTC RESIDENT [facility]IA [facility] TODAY AT 1530 CM LEFT A VM MESSAGE FOR PTS LEGAL GUARDIAN, KATY CARMEN [phone] INFORMING HER OF PENDING DC AND DELIVERING MEDICARE RIGHTS MEDICARE RIGHTS WERE EMAILED TO ADDRESS ON FILE AND CONTACT INFORMATION LEFT FOR HER IN CASE SHE HAS QUESTIONS/CONCERNS
[2021-10-29] MEDS: Apixaban 5 MG TABLET PO (20:01)
[2021-10-29] MEDS: Atorvastatin Calcium 40 MG TABLET PO (20:01)
--- NOTE | 2021-11-01 11:22 | MHC.CM.PN ---
POST DC NOTE: PTS GUARDIAN CALLED JACQUELINE AND REQUESTED PTS IMM BE EMAILED AGAIN SHE DID NOT RECEIVE IT. SHE ALSO ASKED THAT PTS MEDICAL RECORDS BE SENT TO HER. JACQUELINE EXPLAINED SHE WOULD HAVE TO SPEAK TO HEALTH INFORMATION MANAGEMENT TO RECEIVE PTS RECORDS SHE WAS FORWARDED TO [facility] AND GIVEN THE PHONE NUMBER
== END 2021-10-29 21:30 | disposition skilled nursing facility (03) | DRG 68 ==
LOC: HO.ED 14:53 → HO.EDOVER 17:06 → HO.IMC 10-26 15:54
PROVIDERS: Admitting Provider Nurse Practitioner Acute Care; Emergency Provider Emergency Medicine; PCP Internal Medicine; Visit Provider Internal Medicine
DX: I65.02 Occlusion and stenosis of left vertebral artery (principal); E87.0 Hyperosmolality and hypernatremia; I69.354 Hemiplegia and hemiparesis following cerebral infarction affecting left non-dominant side; I42.9 Cardiomyopathy, unspecified; F31.9 Bipolar disorder, unspecified; R29.810 Facial weakness; E86.0 Dehydration; R74.01 Elevation of levels of liver transaminase levels; F03.90 Unspecified dementia, unspecified severity, without behavioral disturbance, psychotic disturbance, mood disturbance, and anxiety; Z87.820 Personal history of traumatic brain injury; Z20.822 Contact with and (suspected) exposure to COVID-19; Z79.899 Other long term (current) drug therapy
CPT/HCPCS: 36415; 70450; 70496; 70498; 70551; 80048; 80061; 80076; 83605; 83735; 84295; 84484; 85025; 85027; 85610; 87040; 87635; 92610; 93005; 93306; 97162; 97166; 99284; 99285; J1650